=== PATIENT | female | born 1955 | race Two or more races ===

== ENCOUNTER 2022-01-24 00:02 | Inpatient (IN) | payer MEDICAID, OTHER ==
[2022-01-24] VITALS (65 sets, daily range): BP systolic 90–182; BP diastolic 46–118
[~2022-01-24] VITALS: Ht 154.9 cm; Wt 56.2 kg
--- NOTE | 2022-01-24 00:30 | NUR ---
IV CANNULA G18 INSERTED ON RIGHT AC. BLOOD DRAWN AND SENT TO LAB
--- NOTE | 2022-01-24 00:36 | NUR ---
ARLETH DECKER FROM [facility], C/O ABNORMAL LABS. PATIENT IS A/O X 1, RR LABORED, PT PLACED ON SMIPLE FACE MASK. PATIENT TAKEN TO ER BED 07, CONNECTED TO CARIDAC AND POX MONITORS.
--- NOTE | 2022-01-24 00:48 | NUR ---
COVID SWAB DONE
--- NOTE | 2022-01-24 00:48 | NUR ---
URINE SPECIMEN SENT TO LAB
--- NOTE | 2022-01-24 00:48 | NUR ---
PLACED PATIENT ON OXYGEN FACE MASK AT 6LPM SATURATING 92%, RA 82%
--- NOTE | 2022-01-24 00:51 | NUR ---
SPECIMEN FOR STOOL OCCULT BLOOD SENT TO LAB
[2022-01-24] MEDS ORDERED: IV NS 0.9% 1,000 ML BAG IV ONE (01:00)
[2022-01-24 01:14] LABS: BASOPHILS % (AUTO) 0.1 % (0.0-2.0); LYMPHOCYTES # (AUTO) 0.8 K/uL (0.8-4.8); LYMPHOCYTES % (AUTO) 2.7 % (20.0-44.0); MEAN CORPUSCULAR HGB CONC 32 g/dl (31.0-36.0); MEAN CORPUSCULAR VOLUME 96 fL (82-100); MONOCYTES # (AUTO) 0.9 K/uL (0.1-1.30); MONOCYTES % (AUTO) 2.9 % (2.0-12.0); NEUTROPHILS # (AUTO) 28.4 K/uL (1.8-8.9); NEUTROPHILS % (AUTO) 94.3 % (43.0-81.0); PLATELET COUNT (AUTO) 322 K/uL (150-450)
[2022-01-24 01:22] LABS: OCCULT BLOOD STOOL POSITIVE (NEGATIVE)
[2022-01-24 01:23] LABS: HEMATOCRIT 17 % (33-45); HEMOGLOBIN 5.5 g/dL (11.5-14.8); RED BLOOD CELL COUNT(AUTO) 1.77 MIL/uL (4.0-5.2); WHITE BLOOD COUNT (AUTO) 30.1 K/uL (4.3-11.0)
[2022-01-24 01:36] LABS: ALANINE AMINOTRANSFERASE 15 U/L (12-78); ALBUMIN 1.8 g/dL (3.4-5.0); ALKALINE PHOSPHATASE 81 U/L (46-116); ASPARTATE AMINOTRANSFERASE 15 U/L (15-37); BILIRUBIN,DIRECT 0.2 mg/dL (0.0-0.2); BILIRUBIN,TOTAL 0.5 mg/dL (0.2-1.0); CALCIUM, SERUM 8.3 mg/dL (8.5-10.1); CARBON DIOXIDE 18 mmol/L (21-32); CHLORIDE 104 mmol/L (98-107); CREATININE 2.9 mg/dL (0.6-1.3); GLUCOSE 90 mg/dL (74-106); POTASSIUM 4.9 mmol/L (3.5-5.1); SODIUM SERUM 134 mmol/L (136-145); UREA NITROGEN, BLOOD 72 mg/dL (7-18)
[2022-01-24] MEDS ORDERED: CT SWABBABLE VALVE TRANS SET 1 EA INFUS.SET MC ONE (01:36)
[2022-01-24] MEDS ORDERED: IOHEXOL-300 100 ML VIAL IV ONE (01:36)
[2022-01-24 01:55] LABS: COLOR,URINE YELLOW (YELLOW); PROTEIN,URINE 3+ mg/dl (NEGATIVE); UGLUCOSE NEGATIVE (NEGATIVE)
[2022-01-24 01:56] LABS: BILIRUBIN,URINE NEGATIVE (NEGATIVE); LEUKOCYTE ESTERASE ,URINE LARGE (NEGATIVE); NITRITE, URINE NEGATIVE (NEGATIVE); UROBILINOGEN,URINE 0.2 EU/dL (0.2)
[2022-01-24 01:57] LABS: BACTERIA,URINE Moderate /HPF (None Seen); RBC,URINE 0-2 /HPF (0-2); SQUAMOUS EPITHELIAL CELL,UR Rare /HPF (None Seen); WBC,URINE TOO NUMEROUS TO COUN /HPF (0-3)
[2022-01-24] MEDS ORDERED: IV NS 0.9% 1,000 ML IV ONE (02:00)
[2022-01-24] MEDS ORDERED: PIPERACILLIN /TAZOBACTAM 3.375 G in IV D5W 50 ML IV ONE (02:00)
--- NOTE | 2022-01-24 02:17 | NUR ---
PT RETURNED TO ER BED [address]
[2022-01-24] MEDS ORDERED: NOREPINEPHRINE 4 MG/4 ML AMPUL IV ONE (02:25)
[2022-01-24] MEDS ORDERED: PIPERACILLIN /TAZOBACTAM 3.375 G VIAL IV ONE (02:29)
[2022-01-24] MEDS ORDERED: PANTOPRAZOLE 80 MG in IV NS 0.9% 100 ML IV ONE (02:30)
[2022-01-24] MEDS ORDERED: PANTOPRAZOLE 80 MG in IV NS 0.9% 500 ML IV PRN (02:30)
[2022-01-24] MEDS: NOREPINEPHRINE 8 MG in IV NS 0.9% 242 ML IV PRN ×5 (02:52→08:59)
--- NOTE | 2022-01-24 02:52 | NUR ---
LEVOPHED STARTED AT .5MCG/KG/MIN FOR BP OF 74/39mmHg, HR 75. RR 20
--- NOTE | 2022-01-24 02:57 | NUR ---
INCREASED THE RATE OF LEVOPHED TO 0.6MCG/KG/MIN FOR BP 86/51mmHg, HR 83, RR 20
--- NOTE | 2022-01-24 03:02 | NUR ---
INCREASED THE RATE OF LEVOPHED TO 0.7MCG/KG/MIN FOR BP 80/44mmHg, HR 73, RR 20
--- NOTE | 2022-01-24 03:09 | NUR ---
INCREASED THE RATE OF LEVOPHED TO 0.8MCG/KG/MIN FOR BP 96/55mmHg, HR 82, RR 20
[2022-01-24] MEDS ORDERED: RISP0.5T5 PO (03:15)
[2022-01-24] MEDS ORDERED: AMLO-213 PO (03:15)
[2022-01-24] MEDS ORDERED: MEGE400O4 PO (03:15)
[2022-01-24] MEDS ORDERED: DOCU100C36 PO (03:15)
[2022-01-24] MEDS ORDERED: SENN-18 PO (03:15)
[2022-01-24] MEDS ORDERED: NITR100C6 PO (03:15)
[2022-01-24] MEDS ORDERED: ASCO500T10 PO (03:15)
[2022-01-24] MEDS ORDERED: LORA10TA7 PO (03:15)
[2022-01-24] MEDS ORDERED: LABE200T5 PO (03:15)
[2022-01-24] MEDS ORDERED: FLUO20CA42 PO (03:15)
[2022-01-24] MEDS ORDERED: LISI40TA13 PO (03:15)
[2022-01-24] MEDS ORDERED: ASPI-1169 PO (03:15)
[2022-01-24] MEDS ORDERED: ERGO500093 PO (03:15)
[2022-01-24] MEDS ORDERED: BISA10SU11 RC (03:15)
[2022-01-24] MEDS ORDERED: LEVE500T20 PO (03:15)
[2022-01-24] MEDS ORDERED: FAMO20TA8 PO (03:15)
[2022-01-24] MEDS ORDERED: SIMV10TA98 PO (03:16)
[2022-01-24] MEDS ORDERED: ACETAMINOPHEN 650 MG/SUPP.RECT RC PRN (03:30)
[2022-01-24] MEDS ORDERED: Z GUARD REMEDY 4 OZ OINT TP PRN (03:30)
[2022-01-24] MEDS ORDERED: ONDANSETRON HCL/PF 4 MG/2 ML VIAL IVP PRN (03:30)
--- NOTE | 2022-01-24 03:45 | NUR ---
CENTRAL LINE INSERTED ON RIGHT FEMORAL VEIN BY DR HOANG.
[2022-01-24 03:55] LABS: BAND % (MANUAL) 11 % (0.0-5.0); BASOPHILS % (MANUAL) 0 % (0.0-2.0); EOSINOPHILS % (MANUAL) 0 % (0-4); LYMPHOCYTES % (MANUAL) 6 % (16-48); MONOCYTES % (MANUAL) 8 % (0-11.0); NEUTROPHILS % (MANUAL) 75 (42-76)
[2022-01-24] MEDS ORDERED: LORAZEPAM INJ 2 MG/ML VIAL IV PRN (04:00)
--- NOTE | 2022-01-24 04:21 | NUR ---
LEFT VOICEMAIL TO DAUGHTER GORDY TO CALL ER OR ICU.
[2022-01-24] MEDS ORDERED: LEVETIRACETAM (500MG) 500 MG/5 ML VIAL IV ONE (04:27)
[2022-01-24] MEDS ORDERED: PANTOPRAZOLE 40 MG VIAL ONE (04:32)
--- NOTE | 2022-01-24 04:38 | NUR ---
PT WAS TRANSFERRED TO ICU UNDER ACLS
--- NOTE | 2022-01-24 04:40 | NUR ---
INCREASED THE RATE OF LEVOPHED TO 0.9MCG/KG/MIN FOR BP 57/40mmHg, HR 128, RR 20
--- NOTE | 2022-01-24 04:40 | NUR ---
Aniket simms in EDM - 01/24/22 at 0454 by MIN INCREASED THE RATE OF LEVOPHED TO 0.9MCG/KG/MIN FOR BP 857/40mmHg, HR 128, RR 20
--- NOTE | 2022-01-24 04:43 | NUR ---
SUBGRADE TESTER NOTES ADMITTED A 66 Y/O FEMALE PATIENT FROM ER VIA [facility], WITH DX OF SEVERE ANEMIA, SEPTIC SHOCK. WITH HX SCHIZOPHRENIA, ETOH ABUSE, ANEMIA. PATIENT A/O X 1 ON BASELINE. ON ROOM AIR SATING AT 100%. RESPIRATORY EVEN AND UNLABORED, NO SOB NOTED. WITH RIGHT FEMORAL CENTRAL LINE, RAC # 18 AND RIGHT HAND # 22 PERIPHERAL LINE, FLUSHED WITH NS. NO S/S OF INFILTRATION NOTED, RUNNING WITH IVF NS @ 100 ML/HR AND LEVO @ 0.9 MCG/KG/MIN. V.S TAKEN AND RECORDED. BODY ASSESSMENT DONE. ALL SAFETY PRECAUTION. BED IN LOWEST POSITION, LOCKED. CALL LIGHT WITH REACH. CONTINUE TO MONITOR.
[2022-01-24] MEDS: LEVETIRACETAM (500MG) 500 MG in IV NS 0.9% 100 ML IV SCH ×2 (04:44→15:42)
[2022-01-24] MEDS: IV NS 0.9% 1,000 ML IV PRN ×2 (04:45→15:40)
--- NOTE | 2022-01-24 04:47 | NUR ---
TRANSFERRED PT TO ICU VIA ACLS WITH ONGOING LEVOPHED DRIP.
[2022-01-24] MEDS ORDERED: VANCOMYCIN 1 GM VIAL ONE (04:48)
--- NOTE | 2022-01-24 04:50 | NUR ---
CONSENT FOR BLOOD TRANSFUSION WS OBTAINED OVER THE PHONE FROM THE PATZAAR'S DAUGHTER GORDY AT [phone]. WITHNESSED BY TATY CHAVIRA.
[2022-01-24 04:59] LABS: BASOPHILS % (AUTO) 0.2 % (0.0-2.0); EOSINOPHILS % (AUTO) 0.1 % (0.0-6.0); LYMPHOCYTES # (AUTO) 1.1 K/uL (0.8-4.8); LYMPHOCYTES % (AUTO) 5.7 % (20.0-44.0); MEAN CORPUSCULAR HGB CONC 32 g/dl (31.0-36.0); MEAN CORPUSCULAR VOLUME 97 fL (82-100); MONOCYTES # (AUTO) 0.1 K/uL (0.1-1.30); MONOCYTES % (AUTO) 0.7 % (2.0-12.0); NEUTROPHILS # (AUTO) 17.7 K/uL (1.8-8.9); NEUTROPHILS % (AUTO) 93.3 % (43.0-81.0); PLATELET COUNT (AUTO) 310 K/uL (150-450)
[2022-01-24] MEDS ORDERED: VANCOMYCIN 1 GM in IV D5W 250ml IV ONE (05:00)
[2022-01-24 05:06] LABS: RED BLOOD CELL COUNT(AUTO) 1.58 MIL/uL (4.0-5.2)
[2022-01-24 05:08] LABS: HEMATOCRIT 15 % (33-45); HEMOGLOBIN 4.9 g/dL (11.5-14.8)
[2022-01-24 05:10] LABS: CALCIUM, SERUM 7.6 mg/dL (8.5-10.1); CREATININE 3.1 mg/dL (0.6-1.3); POTASSIUM 5.8 mmol/L (3.5-5.1)
[2022-01-24 05:18] LABS: ALBUMIN 1.6 g/dL (3.4-5.0); BILIRUBIN,TOTAL 0.5 mg/dL (0.2-1.0); MAGNESIUM 1.4 mg/dL (1.8-2.4); TOTAL PROTEIN, SERUM 5.7 g/dL (6.4-8.2)
[2022-01-24 05:27] LABS: THYROID STIMULATING HORMONE 1.578 uIU/mL (0.358-3.74)
--- NOTE | 2022-01-24 05:30 | NUR ---
RN NOTES RECEIVED LATEST HGB/HCT 4.9/15M NOTIFIED RAVI FORD TRANSFUSE TOTAL OF 2 UNITS PRBC NOTED AND CARRIED OUT.
[2022-01-24] MEDS ORDERED: NOREPINEPHRINE 8MG/250ML RTU 250 ML IV ONE (05:33)
--- NOTE | 2022-01-24 05:46 | NUR ---
RN NOTES BLOOD TRANSFUSION STARTED 1 UNIT PRBC, INITIAL V/S TAKEN AND RECORDED. CONTINUE TO MONITOR.
[2022-01-24 06:01] LABS: BAND % (MANUAL) 12 % (0.0-5.0); BASOPHILS % (MANUAL) 0 % (0.0-2.0); EOSINOPHILS % (MANUAL) 0 % (0-4); LYMPHOCYTES % (MANUAL) 5 % (16-48); MONOCYTES % (MANUAL) 8 % (0-11.0); NEUTROPHILS % (MANUAL) 75 (42-76)
--- NOTE | 2022-01-24 06:06 | NUR ---
RN NOTES WITH ON GOING BLOOD TRANSFUSION, NO ADVERSE REACTION NOTED, V/S TAKEN AND RECORDED.
[2022-01-24 06:11] LABS: ABG BASE EXCESS -13.5 mmol/L; ABG PCO2 18.3 mmHg (35.0-45.0); ABG PO2 91.7 mmHg (75.0-100.0); AaDO2 36.1 mmHg; COHb 2.1 % (0.5-1.5); MetHb 0.3 % (0.0-1.5); O2Hb 94.7 % (94.0-97.0); SITE, ABG Left Radial; VENT MODE, BG ROOM AIR
--- NOTE | 2022-01-24 06:21 | NUR ---
RN NOTES WITH ON GOING BLOOD TRANSFUSION, BP- 110/56, P- 81. RR- 22NO ADVERSE REACTION NOTED. CONTINUE TO MONITOR.
--- NOTE | 2022-01-24 07:20 | NUR ---
rn notes received patient confused, awake, unable to verbalize self, and needs, patient getting blood transfusion at this time on TLC on femoral area intact, also infusing Levophed 0.8mcg/kg/min, and ns@100ml/hr intact. no acute respiratory distress, patient room air-100%, p-95 no acute respiratory distress. will follow up
--- NOTE | 2022-01-24 08:40 | NUR ---
RN NOTES FINISHED BLOOD TRANSFUSION AT THIS TIME BP 118/60, R-19,P-96, T-98.5F. PATIENT AWAKE AND CONFUSED, NO ACUTE RESPIRATORY DISTRESS, O2-100% ON BEDSIDE MONITOR.
[2022-01-24] MEDS ORDERED: RISP0.2515 PO (08:42)
[2022-01-24] MEDS ORDERED: MULT-447 PO (08:42)
[2022-01-24] MEDS ORDERED: FERR325T23 PO (08:42)
[2022-01-24] MEDS ORDERED: ACET-868 PO (08:42)
--- NOTE | 2022-01-24 08:48 | NUR ---
rn notes started second units of blood transfusion at this time 60ml/hr on right tlcon femoral area intact, patient calm, and cooperative t-98.5F, p-95,r-25, bp 117/54, o2-100%. patient room air, no acute respiratory distress, call light within to reach. co sign with Hiwot POSEY. will follow up.
--- NOTE | 2022-01-24 09:10 | NUR ---
RN NOTES PATIENT TOLERATING BLOOD TRANSFUSION WELL, NO ACUTE RESPIRATORY DISTRESS, INCREASED 120ML/HR OM TLC FEMORAL AREA CENTRAL LINE, BP 91/54, P-96,R-22, O2-100% RA. WILL FOLLOW UP.
[2022-01-24] MEDS: PIPERACILLIN /TAZOBACTAM 2.25 G in IV D5W 50 ML IV SCH ×2 (09:28→17:21)
[2022-01-24] MEDS: PANTOPRAZOLE 40 MG VIAL IV SCH ×2 (09:28→22:07)
[2022-01-24] MEDS ORDERED: SODIUM POLYSTYRENE SULFONATE 15 G/60 ML BOTTLE PO ONE (10:00)
[2022-01-24] MEDS ORDERED: Magnesium 1GM/D5W 100ML PREMIX PIGGYBACK IV ONE (10:00)
[2022-01-24] MEDS ORDERED: Magnesium 1GM/D5W 100ML PREMIX 100 ML IV SCH (11:00)
--- NOTE | 2022-01-24 11:47 | NUR ---
RN NOTES FINISHED BLOOD TRANSFUSION AT THIS TIME, PATIENT AWAKE, T-99.2F, R-20,P-95, BP- 128/69,FIO2-100%. NO ACUTE RESPIRATORY DISTRESS. DAUGHTER NEXT TO THE BED.
--- NOTE | 2022-01-24 12:41 | NUR ---
rn notes inserted ngt at this time, get order of start chest x-ray for placement.
[2022-01-24] MEDS: IV NS 0.9% 250 ML IV PRN (12:49)
--- NOTE | 2022-01-24 15:34 | NUR ---
RN NOTES COLLECTED URINE CULTURE SPECIMEN AT THIS TIME, APPLIED PUREWICK URINE COLLECTION TO THE CONTINUED SUCTIONING . TITRATED LEVOPHED PER PROTOCOL.
--- NOTE | 2022-01-24 15:51 | NUR ---
RN NOTES HELD LEVOPHED AT THIS TIME BP 125/65, P-96.
--- NOTE | 2022-01-24 18:18 | NUR ---
RN NOTES PM CARE DONE, DUE MEDICATION ADMINISTERED, BP 122/60, P-99, O2-100% ROOM AIR, NO ACUTE RESPIRATORY DISTRESS. INFUSING NS@100ML/HR ON RIGHT FEMORAL AREA INTACT, PATIENT KEEP MOVING SELF IN THE BED. CALL LIGHT WITHIN TO REACH. ENDORSED ONCOMING NURSE CARLOS.
[2022-01-25] VITALS (36 sets, daily range): BP systolic 116–184; BP diastolic 46–125
[2022-01-25] MEDS: IV NS 0.9% 1,000 ML IV PRN (02:17)
[2022-01-25] MEDS: PIPERACILLIN /TAZOBACTAM 2.25 G in IV D5W 50 ML IV SCH ×3 (02:17→17:13)
[2022-01-25] MEDS: LEVETIRACETAM (500MG) 500 MG in IV NS 0.9% 100 ML IV SCH (04:04)
[2022-01-25 04:14] LABS: BASOPHILS % (AUTO) 0.1 % (0.0-2.0); EOSINOPHILS % (AUTO) 0.5 % (0.0-6.0); HEMATOCRIT 23 % (33-45); HEMOGLOBIN 7.8 g/dL (11.5-14.8); LYMPHOCYTES # (AUTO) 1.1 K/uL (0.8-4.8); LYMPHOCYTES % (AUTO) 4.8 % (20.0-44.0); MEAN CORPUSCULAR HGB CONC 34 g/dl (31.0-36.0); MEAN CORPUSCULAR VOLUME 92 fL (82-100); MONOCYTES # (AUTO) 0.6 K/uL (0.1-1.30); MONOCYTES % (AUTO) 2.6 % (2.0-12.0); NEUTROPHILS # (AUTO) 20.8 K/uL (1.8-8.9); PLATELET COUNT (AUTO) 157 K/uL (150-450); RED BLOOD CELL COUNT(AUTO) 2.52 MIL/uL (4.0-5.2); WHITE BLOOD COUNT (AUTO) 22.6 K/uL (4.3-11.0)
[2022-01-25 04:37] LABS: CALCIUM, SERUM 7.5 mg/dL (8.5-10.1); CREATININE 2.4 mg/dL (0.6-1.3); MAGNESIUM 1.8 mg/dL (1.8-2.4); POTASSIUM 2.9 mmol/L (3.5-5.1)
[2022-01-25 05:32] LABS: BAND % (MANUAL) 5 % (0.0-5.0); BASOPHILS % (MANUAL) 0 % (0.0-2.0); EOSINOPHILS % (MANUAL) 0 % (0-4); LYMPHOCYTES % (MANUAL) 9 % (16-48); MONOCYTES % (MANUAL) 5 % (0-11.0); NEUTROPHILS % (MANUAL) 81 (42-76)
--- NOTE | 2022-01-25 07:36 | NUR ---
RN CLOSING NOTE PATIENT IS A/OX1. ROOM AIR. SINUS RHYTHM/ SINUS TACH ON THE MONITOR. NGT CLAMPED. RIGHT MITTEN ON, NO REDNESS/ NO INJURY. IVF RUNNING. ABX GIVEN ORDERED. PENING PULM AND GI CONS.
--- NOTE | 2022-01-25 07:37 | NUR ---
GOT PATIENT REPORT FROM KEISHA POSYE. PATIENT REMAINS IN ROOM NPO WITH NASOGASTRIC TUBE, NO FEEDING RUNNING. NASOGASTRIC TUBE PLACEMENT CONFIRMED BY AUSCULTATION. IV ACCESS' PATENT AND FLUSHING WITH NO RESISTANCE. PATIENT CLEANED, ONE VOID AND ONE BOWEL MOVEMENT NOTED. NOW CLEAN AND DRY. TOLERATING ROOM AIR EVIDENCED BY OXYGEN SATURATION IN 98 PERCENT. READING NORMAL SINUS RYHTHM AT THIS TIME. SAFETY MEASURES IN PLACE, WILL CONTINUE PLAN OF CARE AND ANTICIPATE NEEDS. Addendum: 01/25/22 at 1038 by ROLAND TRAN RN PATIENT NPO PER DR WONG. AWAITING GI FOLLOW UP FOR POSITIVE OCCULT BLOOD.
[2022-01-25] MEDS: POTASSIUM CL. PREMIX PERIPHER. 50 ML IV SCH ×5 (07:41→12:51)
[2022-01-25] MEDS: IV NS 0.9% 250 ML IV PRN (08:30)
[2022-01-25] MEDS ORDERED: JEVITY 1.2 CAL 1,000 ML BOTTLE GT PRN (08:30)
[2022-01-25] MEDS: PANTOPRAZOLE 40 MG VIAL IV SCH ×2 (08:41→21:36)
--- NOTE | 2022-01-25 10:00 | NUR ---
RN NOTES GET Dr WONG'S ORDERS, KEEP NPO TODAY BECAUSE OF PATIENT POSITIVE OCCULT BLOOD. ORDER TAKEN AND CARRIED OUT..
--- NOTE | 2022-01-25 10:38 | NUR ---
TEXTED DR WONG FOR BLOOD PRESSURE 170/[address] RATE 121. DR GAVE ORDER TO DECREASE NORMAL SALINE RATE FROM 100 MLS/HR TO 75 MLS/HR AND AN ORDER FOR HYDRALAZINE TO MAINTAIN SYSTOLIC BLOOD PRESSURE LESS THAN 160. WILL CARRY OUT ORDER.
[2022-01-25] MEDS ORDERED: IV NS 0.9% 1,000 ML IV PRN (10:40)
[2022-01-25] MEDS: hydrALAZINE HCL IV 20 MG VIAL IV PRN ×2 (11:01→16:51)
--- NOTE | 2022-01-25 11:07 | NUR ---
PRN HYDRALAZINE GIVEN FOR BLOOD PRESSURE 166/85 WITH HEART RATE OF 125 BEATS PER MINUTE
[2022-01-25] MEDS: VANCOMYCIN HCL 0.75 GM in IV D5W 250 ML IV SCH (16:01)
--- NOTE | 2022-01-25 16:51 | NUR ---
PRN HYDRALAZINE GIVEN FOR BLOOD PRESSURE 162/85 WITH HEART RATE OF 124 BEATS PER MINUTE
--- NOTE | 2022-01-25 18:00 | NUR ---
rn notes patient HR -145 increased sinus tachy, notified hospitalist Dr Arizmendi, and get to order and get Cardizem 10ml iv pus q 6 hr, order taken and carried out.
[2022-01-25] MEDS: DILTIAZEM HCL 50 MG IV IV PRN (18:34)
[2022-01-25] MEDS: IV 1/2NS 1000 ML 1,000 ML IV PRN (19:08)
--- NOTE | 2022-01-25 19:14 | NUR ---
PATIENT REMAINS IN ROOM NPO WITH NASOGASTRIC TUBE, NO FEEDING RUNNING. NASOGASTRIC TUBE PLACEMENT CONFIRMED BY AUSCULTATION. IV ACCESS' PATENT AND FLUSHING WITH NO RESISTANCE. PATIENT KEPT CLEAN AND DRY THROUGHOUT SHIFT. TOLERATING ROOM AIR EVIDENCED BY OXYGEN SATURATION IN 98 PERCENT. READING SINUS TACHYCARDIC AT THIS TIME. PRN CARDEZIM GIVEN AT 1834. SAFETY MEASURES IN PLACE. HANDOFF REPORT GIVEN TO SWATI POSEY FOR CONTINUATION OF CARE.
--- NOTE | 2022-01-25 21:06 | NUR ---
FOOD PREPARATION KITCHEN AIDE.INITIAL ASSESSMENT. RECEIVED THE PT REST IN BED. OPEN EYES. DOES NOT FOLLOW COMMANDS. HOB ELEVATED. ROOM AIR. SAT 98%RT NARE NGT INTACT. SUGAR HOUSE SUPERVISOR SHOWING NSR. IV RT FEMORAL TLC IVF 1/2NS 75 ML/H. WILL CONTINUE TO MONITOR VITALS.
[2022-01-25] MEDS: LEVETIRACETAM SOL (5 ML) 100 MG/ML UDC GT SCH (21:36)
[2022-01-26] VITALS (27 sets, daily range): BP systolic 117–188; BP diastolic 61–95
[2022-01-26] MEDS: PIPERACILLIN /TAZOBACTAM 2.25 G in IV D5W 50 ML IV SCH ×5 (01:22→23:12)
--- NOTE | 2022-01-26 02:23 | NUR ---
TELEPHONE ORDER CLERK. AM CARE GIVEN. REMAINING SAME IVF RUNNING, HOB ELEVATED. NGT INTACT, ROOM AIR TOLERATED WELL. SAT 98%, NO ACUTE DISTRESS NOTED. PUBLIC WORKS SUPERVISOR SHOWING NSR. TURN AND REPOSITION Q2H. WILL CONTINUE TO MONITOR VITALS.
[2022-01-26 03:57] LABS: BASOPHILS % (AUTO) 0.1 % (0.0-2.0); EOSINOPHILS % (AUTO) 0.1 % (0.0-6.0); HEMATOCRIT 24 % (33-45); HEMOGLOBIN 8.3 g/dL (11.5-14.8); LYMPHOCYTES # (AUTO) 1.6 K/uL (0.8-4.8); LYMPHOCYTES % (AUTO) 8.3 % (20.0-44.0); MEAN CORPUSCULAR HGB CONC 34 g/dl (31.0-36.0); MEAN CORPUSCULAR VOLUME 92 fL (82-100); MONOCYTES # (AUTO) 0.7 K/uL (0.1-1.30); MONOCYTES % (AUTO) 3.9 % (2.0-12.0); NEUTROPHILS # (AUTO) 16.5 K/uL (1.8-8.9); NEUTROPHILS % (AUTO) 87.6 % (43.0-81.0); PLATELET COUNT (AUTO) 149 K/uL (150-450); RED BLOOD CELL COUNT(AUTO) 2.65 MIL/uL (4.0-5.2); WHITE BLOOD COUNT (AUTO) 18.8 K/uL (4.3-11.0)
[2022-01-26 04:11] LABS: CALCIUM, SERUM 7.8 mg/dL (8.5-10.1); CREATININE 1.9 mg/dL (0.6-1.3); MAGNESIUM 1.4 mg/dL (1.8-2.4); PHOSPHORUS 3.4 mg/dL (2.5-4.9); POTASSIUM 3.1 mmol/L (3.5-5.1)
[2022-01-26] MEDS ORDERED: VANCOMYCIN HCL 0.75 GM in IV D5W 250 ML IV SCH (05:00)
--- NOTE | 2022-01-26 07:00 | NUR ---
REPORT RECEIVED FROM NIGHTSHIFT RN. AM CARE GIVEN. TURNED AND REPOSITIONED. IVF RUNNING, HOB ELEVATED. NGT INTACT, PLACEMENT CONFIRMED BY AUSCULTATION. PATIENT NPO AWAITING GI FOLLOW UP. ROOM AIR TOLERATED WELL EVIDENCED BY OXYGEN SATURATION AT 98%, NO ACUTE DISTRESS NOTED. OPERATIONS AGENT SHOWING NSR. WILL CONTINUE PLAN OF CARE AND ANTICIPATE NEEDS.
[2022-01-26] MEDS: IV 1/2NS 1000 ML 1,000 ML IV PRN (07:25)
[2022-01-26] MEDS: DILTIAZEM HCL 50 MG IV IV PRN ×2 (08:09→14:00)
[2022-01-26] MEDS: POTASSIUM CL. PREMIX PERIPHER. 50 ML IV SCH ×4 (08:13→11:45)
[2022-01-26] MEDS: Magnesium 1GM/D5W 100ML PREMIX 100 ML IV SCH ×3 (08:13→10:03)
[2022-01-26] MEDS: LEVETIRACETAM SOL (5 ML) 100 MG/ML UDC GT SCH ×3 (08:15→21:15)
[2022-01-26] MEDS: PANTOPRAZOLE 40 MG VIAL IV SCH ×2 (08:31→21:15)
[2022-01-26] MEDS ORDERED: ANESTHESIA TRAY IN PYXIS 1 EA TRAY MC ONE (08:45)
[2022-01-26] MEDS ORDERED: LABETALOL HCL IV 100MG VIAL ONE (09:07)
[2022-01-26] MEDS ORDERED: Magnesium 1GM/D5W 100ML PREMIX 100 ML IV SCH (10:00)
--- NOTE | 2022-01-26 10:11 | NUR ---
RECEIVED PATIENT FROM OR TEAM. IN BED TOLERATING ROOM AIR. METAL CANS SUPERVISOR SHOWING NSR. NGT REMOVED DURING PROCEDURE, WILL INSERT NEW NGT. OBTAINED ORDER TO RESTART TUBE FEEDING, WILL CARRY ORDER OUT. PATIENT CLEANED, REPOSITIONED. WILL CONTINUE PLAN OF CARE.
--- NOTE | 2022-01-26 10:35 | NUR ---
NGT INSERTED. PLACEMENT CONFIRMED BY AUSCULTATION. SECURED WITH STATLOCK. WILL RESUME TUBE FEEDING.
[2022-01-26] MEDS: hydrALAZINE HCL IV 20 MG VIAL IV PRN (13:14)
[2022-01-26] MEDS: IV NS 0.9% 250 ML IV PRN (16:22)
[2022-01-26] MEDS: ACETAMINOPHEN 650 MG/20.3 ML UDC GT PRN (16:22)
--- NOTE | 2022-01-26 16:22 | NUR ---
PRN TYLENOL GIVEN FOR TEMP 99.9 DEGREES FAHRENHEIT. WILL RECHECK TEMP IN ONE HOUR
--- NOTE | 2022-01-26 17:22 | NUR ---
ON RECHECK TEMPERATURE IS 98.7 DEGREES FAHRENHEIT
--- NOTE | 2022-01-26 19:52 | NUR ---
director of curriculum. initial assessment. received the pt rest in bed. awake, open eyes. does not follow commands. room air. sat 98%. no acute distress noted. conveyor monitor showing nsr. iv rt femoral tlc. ivf 1/2ns 75 ml/h. ngt feeding tolerated well. hob elevated. will continue to monitor vitals.
[2022-01-27] VITALS (26 sets, daily range): BP systolic 113–176; BP diastolic 58–100
[2022-01-27] MEDS: IV 1/2NS 1000 ML 1,000 ML IV PRN ×2 (01:30→16:39)
[2022-01-27 03:58] LABS: BASOPHILS % (AUTO) 0.3 % (0.0-2.0); EOSINOPHILS % (AUTO) 1.6 % (0.0-6.0); HEMATOCRIT 25 % (33-45); HEMOGLOBIN 8.5 g/dL (11.5-14.8); LYMPHOCYTES # (AUTO) 1.6 K/uL (0.8-4.8); LYMPHOCYTES % (AUTO) 10.3 % (20.0-44.0); MEAN CORPUSCULAR HGB CONC 34 g/dl (31.0-36.0); MEAN CORPUSCULAR VOLUME 92 fL (82-100); MONOCYTES # (AUTO) 0.9 K/uL (0.1-1.30); MONOCYTES % (AUTO) 6.2 % (2.0-12.0); NEUTROPHILS # (AUTO) 12.4 K/uL (1.8-8.9); NEUTROPHILS % (AUTO) 81.6 % (43.0-81.0); PLATELET COUNT (AUTO) 144 K/uL (150-450); RED BLOOD CELL COUNT(AUTO) 2.74 MIL/uL (4.0-5.2); WHITE BLOOD COUNT (AUTO) 15.2 K/uL (4.3-11.0)
[2022-01-27 04:06] LABS: CALCIUM, SERUM 7.6 mg/dL (8.5-10.1); CREATININE 1.6 mg/dL (0.6-1.3); POTASSIUM 3.4 mmol/L (3.5-5.1)
[2022-01-27] MEDS: VANCOMYCIN HCL 0.75 GM in IV D5W 250 ML IV SCH (05:32)
[2022-01-27] MEDS: PIPERACILLIN /TAZOBACTAM 2.25 G in IV D5W 50 ML IV SCH ×2 (05:32→11:33)
--- NOTE | 2022-01-27 06:56 | NUR ---
manager nicu. am care given. remaining same ivf running. room air tolerated well. hobelevated/ ngt feeding tolerated well. turn and reposition q2h. will continue to monitor vitals.
--- NOTE | 2022-01-27 07:45 | NUR ---
ICU/RN PT IS RESTING.ON ROOM AIR,SAT O2-99%.V/S STABLE,AFEBRILE.NO PAIN REPORTED AT THIS TIME.NG TUBE IN PLACE INFUSING WITH JEVITY AT 60 ML/HR.RIGHT FEMORAL TLC ,WITH IV FLUIDS.PT IS INCONTINENT IN DIAPER.REDNESS ON NIMISHA AREA NOTED.LABS REVIEW. NOTIFIED.NEW ORDERS RECEIVED .REPOSITION FOR COMFORT.
[2022-01-27] MEDS: PANTOPRAZOLE 40 MG VIAL IV SCH ×2 (08:06→21:29)
[2022-01-27] MEDS: LEVETIRACETAM SOL (5 ML) 100 MG/ML UDC GT SCH ×2 (08:06→21:29)
--- NOTE | 2022-01-27 09:00 | NUR ---
ICU/RN DUE MEDS ARE GIVEN ORDERED.NIMISHA CARE PROVIDED.PT IS SLIDING IN THE BED .HIGH RISK FOR ASPIRATION. TUBE FEEDING PLACE ON HOLD. AWARE.
[2022-01-27] MEDS ORDERED: POTASSIUM CHLORIDE 20 MEQ POWDER PACKET GT ONE (09:30)
[2022-01-27] MEDS: hydrALAZINE HCL IV 20 MG VIAL IV PRN (10:11)
--- NOTE | 2022-01-27 10:14 | NUR ---
RN NOTE PRN HYDRALAZINE GIVEN FOR BLOOD PRESSURE 167/100 WITH HR OF 1113
[2022-01-27] MEDS ORDERED: CEFTRIAXONE 1 G in IV NS 0.9% 50 ML IV SCH (16:00)
[2022-01-27] MEDS: IV NS 0.9% 250 ML IV PRN (16:40)
[2022-01-27] MEDS: JEVITY 1.2 CAL 1,000 ML BOTTLE GT PRN (18:10)
--- NOTE | 2022-01-27 20:00 | NUR ---
Received patient awake oriented x1 restless moving a lot,sliding down in bed.Turned and repositioned frequently.Dx: Anemia,Sepsis,UTI.Feeding on hold for safety to pevent aspiration. Afebrile,normotensive,SR.On RA saturation 98%.-99%.No respiratory distress noted.IVF infusing via R femoral TLC.Incontinent bowel and bladder.Kept clean and dry.Continue monitoring.
--- NOTE | 2022-01-27 22:24 | NUR ---
Patient transferred to tele floor Rm 323 bed 2 via bed in stable condition accompanied by ED plant superintendent and Erasmo with her belongings & meds..Report given to Sudha Castaneda RN.
--- NOTE | 2022-01-27 22:25 | NUR ---
RN OPENING NOTES: RECEIVED REPORT FROM JONN/RN/ICU, TRANSFER IN PATIENT TO [address] [place] [address], ON MONITOR SR-80'S, ON ROOM AIR SPO2-99%PERVIOUS H/H 5.5, SHE RECEIVED 2 UNITS PRB ON 01/24/22, SHE WAS ON LEVOFED INFUSION DUE TO LOW BP,DISCONTINUE NOW, SHE WAS ADMITTED DX:SEPSIS/UTI, SHE IS ALSO KNOWN CASE OF CVA, EPILEPSY, DEMENTIA, HTN, ANXIETY, SCHIZO NKDA, COVID(-), A/OX1, ABLE TO COMMUNICATE LIKE REPOSITIONING, LEFT ARM-CONTRACTED, RH-MOVING A [employer]), ON NGT TUBE WITH FEEDING OF JEVITY 1.2 AT 45 ML/HR, TEMPORARILY STOP DUE TO TOO MUCH MOVEMENT AND SHE ALWAYS GO DOWN FROM SEMI FOWLERS POSITION TO SUPINE POSITION, HIGH RISK FOR ASPIRATION, DUE TO FLUSHING AFTER 8 HOURS OF 250 ML, HAD BM 3X IN ICU FROM MORNING SHIFT GREENISH IN COLOR,SOFT CONSISTENCY, INCONTINENT, USING BRIEF, NO SKIN BREAKDOWN, EXCEPT REDNESS ON BILATERAL HILLS DUE TO MOVING UP AND DOWN OF THE PATIENT, SHE HAS LEFT FEMORAL TRIPLE LUMEN IVF OF 1/2 NS AT 75 ML.HR, RFA-AC G#22, PATENT. HER LATEST K-3.4 GIVEN 40 mEQ kcl VIA NGT THIS MORNING, LATETS V/S T-98.5 WY-83 RR-15 BP-153/84. WHILE RECIEVEING ENDORSEMENT, PATIENT ARRIVED IN THE UNIT WITH CN AT 2225
--- NOTE | 2022-01-27 23:20 | NUR ---
RN NOTES: ORIENTED TO UNIT AND STAFF, TELE MONITOR CONTINUE, PLACED IN SEMI FOWLERS POSITION, NOTICED SHE KEEP ON TRYING TO MOVE HER HEAD AND BLE AND SHE IS SLIDING DOWN, RN TRIED TO EXPLAIN TO HER TO TRY NOT TO MOVE A LOT, WE ARE STARTING HER FEEDING VIA NGT TUBE JEVITY 1.2 AT SLOW DRIP, WILL MONITOR, ASPIRATION PRECAUTION OBSERVED, REPOSITIONED, KEPT CALL LIGHT WITHIN EASY REACH, ON CLOSE VISUAL CHECK.SHE LOOKS LITTLE ANXIOUS IN HER NEW ROOM, REDIRECT AND GIVEN ORIENTATION.
[2022-01-28] VITALS: BP 171/92
[2022-01-28] MEDS: hydrALAZINE HCL IV 20 MG VIAL IV PRN (00:22)
--- NOTE | 2022-01-28 00:23 | NUR ---
RN NOTES: AT 0000 BP-180/95, THEN GIVEN SOME TIME TO REST. AT 0015 BP-171/92 CN MADE AWARE, PRN APRESOLINE GIVEN AT 0022
--- NOTE | 2022-01-28 00:58 | NUR ---
RN NOTES: TURNED AND REPOSITION SHE IS SLIDING DOWN, RN TRYING TO EXPLAIN TO HER NOT TO SLIDE DOWN TO PREVENT ASPIRATION HER IVF AND NGT FEEDING IS ON GOING.NEEDS ANTICIPATED.
[2022-01-28 04:00] VITALS: BP 142/75
--- NOTE | 2022-01-28 05:48 | NUR ---
RN NOTES: MORNING CARE DONE, CLEAN AND CHANGE, LARGE AMOUNT OF URINE WITH STOOL STAINED, GREENISH IN COLOR,AFTER CLEANING SHE FALL ASLEEP.
--- NOTE | 2022-01-28 06:49 | NUR ---
RN NOTES: SHE SLEEP IN THE MORNING, LAST NIGHT AWAKE MOST OF THE TIME AND TRYING TO SLIDE DOWN FROM SEMI FOLWERS TO SUPINE POSITION, NGT FEEDING OF JEVITY 1.2 SLOW DRIP STARTED UNTIL 45CC/HR REACH, IVF OF 1/2NS AT 75ML/HR ONGOING, REPOSITIONED, BLE OFF LOADING OBSERVED, FOR BLOOD TEST, ENDORSED FOR CONTINUITY OF CARE.
[2022-01-28 07:14] LABS: BASOPHILS % (AUTO) 0.4 % (0.0-2.0); EOSINOPHILS % (AUTO) 2.4 % (0.0-6.0); HEMATOCRIT 24 % (33-45); HEMOGLOBIN 8.2 g/dL (11.5-14.8); LYMPHOCYTES # (AUTO) 1.4 K/uL (0.8-4.8); MEAN CORPUSCULAR HGB CONC 34 g/dl (31.0-36.0); MEAN CORPUSCULAR VOLUME 91 fL (82-100); MONOCYTES # (AUTO) 0.9 K/uL (0.1-1.30); NEUTROPHILS % (AUTO) 73.2 % (43.0-81.0); PLATELET COUNT (AUTO) 131 K/uL (150-450); RED BLOOD CELL COUNT(AUTO) 2.63 MIL/uL (4.0-5.2); WHITE BLOOD COUNT (AUTO) 9.5 K/uL (4.3-11.0)
[2022-01-28 07:34] LABS: CALCIUM, SERUM 7.4 mg/dL (8.5-10.1); CREATININE 1.3 mg/dL (0.6-1.3); POTASSIUM 3.5 mmol/L (3.5-5.1)
--- NOTE | 2022-01-28 07:35 | NUR ---
SUPERVISOR PIPELINE OPENING NOTES: RECEIVED ON BED AWAKE , ABLE TO COMMUNICATE LIKE REPOSITIONING, LEFT ARM-CONTRACTED WITH RIGHT ARM MITTENS ON DUE TO PULLING OUT TUBE , ON NGT TUBE WITH FEEDING OF JEVITY 1.2 AT 45 ML/HR, ON SEMI FOWLERS POSITION BUT PATIENT KEPT ON MOVING ALL THE TIME , HIGH RISK FOR ASPIRATION , NO SKIN BREAKDOWN, EXCEPT REDNESS ON BILATERAL HEELS , , SHE HAS LEFT FEMORAL TRIPLE LUMEN IVF OF 1/2 NS AT 75 ML.HR, RFA-AC G#22 , WILL CONTINUE TO MONITOR .
[2022-01-28 08:00] VITALS: BP 153/108
[2022-01-28] MEDS ORDERED: VANCOMYCIN HCL 0.75 GM in IV D5W 250 ML IV SCH (08:00)
[2022-01-28] MEDS: LEVETIRACETAM SOL (5 ML) 100 MG/ML UDC GT SCH ×2 (09:16→21:20)
[2022-01-28] MEDS: VANCOMYCIN 1 GM in IV D5W 250ml IV SCH (09:29)
[2022-01-28] MEDS: PANTOPRAZOLE 40 MG VIAL IV SCH (09:56)
[2022-01-28 16:00] VITALS: BP_SYST 166; BP_SYST 168; BP_DIAS 94
[2022-01-28] MEDS: CEFTRIAXONE 1 G in IV D5W 50 ML IV SCH (16:24)
[2022-01-28] MEDS: IV 1/2NS 1000 ML 1,000 ML IV PRN (17:34)
--- NOTE | 2022-01-28 18:34 | NUR ---
KINESEOLOGIST CLOSING NOTES: PATIENT ON BED AWAKE , A/O X 1-2 , ABLE TO COMMUNICATE NEEDS LIKE REPOSITIONING, LEFT ARM-CONTRACTED WITH RIGHT ARM MITTENS ON DUE TO PULLING OUT TUBE , ON NGT TUBE WITH FEEDING OF JEVITY 1.2 AT 45 ML/HR, ON SEMI FOWLERS POSITION BUT PATIENT KEPT ON MOVING ALL THE TIME , ALL DUE MEDS GIVEN ORDERED , HIGH RISK FOR ASPIRATION , NO SKIN BREAKDOWN, EXCEPT REDNESS ON BILATERAL HEELS , , SHE HAS LEFT FEMORAL TRIPLE LUMEN IVF OF 1/2 NS AT 75 ML.HR, RFA-AC G#22 , SAFETY PRECAUTIONS PROVIDED , SR UP X 2 AND ENDORSED TO NEXT SHIFT .
--- NOTE | 2022-01-28 19:30 | NUR ---
SEWING MACHINE TESTER OPENING NOTES: RECEIVED PATIENT AWAKE IN BED, BED IN LOW POSITION CALL LIGHTS WITHIN REACH, NO COMPLAIN OF PAIN AND DISCOMFORT AT THIS TIME, ON ROOM AIR SATURATING WELL, ON GTUBE FEEDING OF JEVITY 1.2 @45ML/HR INFUSING WELL, PATIENT TO REMAIN UPRIGHT AT ALL TIME, PATIENT RIGHT FEMORAL CENTRAL LINE WITH ONGOING IV FLUID OF 1/2 NSS@75ML/HR INFUSING WELL, PATIENT KEPT CLEAN AND DRY ALL NEEDS MET WILL CONTINUE TO MONITOR.
[2022-01-28 20:00] VITALS: BP 150/86
[2022-01-28] MEDS: PANTOPRAZOLE 40 MG/PACK PACK GT SCH (21:20)
[2022-01-28] MEDS: JEVITY 1.2 CAL 1,000 ML BOTTLE GT PRN (21:39)
[2022-01-29] VITALS: BP_SYST 171; BP_SYST 174; BP_DIAS 86; BP_DIAS 89
[2022-01-29] MEDS: hydrALAZINE HCL IV 20 MG VIAL IV PRN (00:46)
[2022-01-29 04:00] VITALS: BP 150/87
[2022-01-29 06:48] LABS: BASOPHILS % (AUTO) 0.3 % (0.0-2.0); EOSINOPHILS % (AUTO) 2.4 % (0.0-6.0); HEMATOCRIT 25 % (33-45); HEMOGLOBIN 8.4 g/dL (11.5-14.8); LYMPHOCYTES # (AUTO) 1.5 K/uL (0.8-4.8); LYMPHOCYTES % (AUTO) 17.2 % (20.0-44.0); MEAN CORPUSCULAR HGB CONC 34 g/dl (31.0-36.0); MEAN CORPUSCULAR VOLUME 91 fL (82-100); MONOCYTES # (AUTO) 0.8 K/uL (0.1-1.30); MONOCYTES % (AUTO) 9.7 % (2.0-12.0); NEUTROPHILS % (AUTO) 70.4 % (43.0-81.0); PLATELET COUNT (AUTO) 142 K/uL (150-450); RED BLOOD CELL COUNT(AUTO) 2.71 MIL/uL (4.0-5.2); WHITE BLOOD COUNT (AUTO) 8.5 K/uL (4.3-11.0)
--- NOTE | 2022-01-29 07:00 | NUR ---
PLASTIC PARTS FABRICATOR TRIMMER OPENING NOTES: PATIENT LAYING IN BED, A/O X 1, RIGHT SOFT WRIST RESTRAINT IN PLACE WITH CIRCULATION/MOTOR/SENSATION INTACT DISTALLY. PATIENT TOLERATING WELL ON ROOM AIR WITH NO S/S RESPIRATORY DISTRESS. NG TUBE IN PLACE, CLAMPED. R FEMORAL CENTRAL LINE IN PLACE WITH 1/2 NS INFUSING @ 75 ML/HR. SAFETY MEASURES IN PLACE: BED IN LOWEST LOCKED POSITION, SIDE RAILS UP X 2, CALL LIGHT WITHIN REACH. WILL CONTINUE TO MONITOR. Addendum: 01/29/22 at 1958 by ARIES SINGH RN TELE MONITOR IN PLACE READING SR
--- NOTE | 2022-01-29 07:50 | NUR ---
RN NOTES: PATIENT WAS NOTED PULLED HER NGT, NOTIFY CHARGE NURSE, REINSERT WITH A NEW ONE AND ORDERED CHEST X RAY TO CONFIRMED PATENDY, ENDORSE TO INCOMING NURSE.
--- NOTE | 2022-01-29 07:52 | NUR ---
FITTINGS TIGHTENER CLOSING NOTES: PATIENT WAS AWAKE IN BED, BED IN LOW POSITION CALL LIGHTS WITHIN REACH, NO COMPLAIN OF PAIN AND DISCOMFORT AT THIS TIME, NO SOB WAS OBSERVED, NGT REINSERTED AND ORDERED CHEST X RAY FOR PATENCY, PATIENT KEPT CLEAN AND DRY ALL NEEDS MET ENDORSE TO INCOMING SHIFT,
[2022-01-29 08:00] VITALS: BP 156/85
[2022-01-29 08:01] LABS: CALCIUM, SERUM 7.5 mg/dL (8.5-10.1); CARBON DIOXIDE 19 mmol/L (21-32); CREATININE 1.2 mg/dL (0.6-1.3); GLUCOSE 122 mg/dL (74-106); MAGNESIUM 1.4 mg/dL (1.8-2.4); PHOSPHORUS 2.2 mg/dL (2.5-4.9); POTASSIUM 3.3 mmol/L (3.5-5.1); SODIUM SERUM 144 mmol/L (136-145); UREA NITROGEN, BLOOD 20 mg/dL (7-18)
[2022-01-29] MEDS: PANTOPRAZOLE 40 MG/PACK PACK GT SCH ×3 (08:37→21:13)
[2022-01-29] MEDS: LEVETIRACETAM SOL (5 ML) 100 MG/ML UDC GT SCH ×3 (08:37→21:13)
[2022-01-29] MEDS: VANCOMYCIN 1 GM in IV D5W 250ml IV SCH (08:44)
[2022-01-29] MEDS: Magnesium 1GM/D5W 100ML PREMIX 100 ML IV SCH ×4 (10:30→14:39)
[2022-01-29] MEDS ORDERED: NEUTRA PHOS 1 POWD.PACKET PO ONE ×2 (11:00→13:00)
[2022-01-29] MEDS ORDERED: POTASSIUM CHLORIDE 20 MEQ POWDER PACKET PO SCH ×3 (11:00→15:00)
--- NOTE | 2022-01-29 11:22 | NUR ---
PELOTA MAKER NOTES NG TUBE ADVANCED PER IMAGING RECOMMENDATIONS. ORDER PLACED FOR FOLLOW UP CHEST X-RAY TO CONFIRM NG TUBE PLACEMENT. G-TUBE MEDICATIONS AND FEEDING HELD UNTIL PLACEMENT CONFIRMED.
[2022-01-29 12:00] VITALS: BP 141/91
[2022-01-29] MEDS: CEFTRIAXONE 1 G in IV D5W 50 ML IV SCH (16:48)
--- NOTE | 2022-01-29 19:00 | NUR ---
SUPERVISOR OVENS CLOSING NOTES PATIENT LAYING IN BED, A/O X 1, RIGHT SOFT WRIST RESTRAINT IN PLACE WITH CIRCULATION/MOTOR/SENSATION INTACT DISTALLY. PATIENT TOLERATING WELL ON ROOM AIR WITH NO S/S RESPIRATORY DISTRESS. NG TUBE IN PLACE, PLACEMENT CONFIRMED VIA X-RAY, GLUCERNA 1.2 JOSE ALFREDO @ 45 ML/HR INFUSING. R FEMORAL CENTRAL LINE IN PLACE WITH 1/2 NS INFUSING @ 75 ML/HR. SAFETY MEASURES IN PLACE: BED IN LOWEST LOCKED POSITION, SIDE RAILS UP X 2, CALL LIGHT WITHIN REACH. ALL NEEDS MET. PATIENT TURNED Q2H DURING SHIFT. WILL ENDORSE TO METAL MODEL BUILDER FOR CARLOS.
--- NOTE | 2022-01-29 19:30 | NUR ---
CRYOGENICS ENGINEER OPENING NOTES RECEIVED PATIENT IN BED ASLEEP, RESPONSIVE TO NAME. A/O X1. BREATHING EVEN AND NON-LABORED ON ROOM AIR. NOT IN APPARENT DISTRESS. NO PAIN OR DISCOMFORT NOTED. ON TELE MONITOR READING SINUS RHYTHM AT 73 BPM. HAS RIGHT FEMORAL CENTRAL LINE WITH 1/2 NS RUNNING AT 75 ML/HR. NO S/S OF INFILTRATION NOTED. NG-TUBE IN PLACE WITH JEVITY 1.2 RUNNING AT 40 ML/HR, ADJUSTED TO 45 ML/HR PER MD ORDER. RIGHT SOFT WRIST RESTRAINT ON. SKIN AND CIRCULATION WNL. SAFETY PRECAUTIONS IN PLACE: BED LOW AND LOCKED, SIDE RAILS UP X2, CALL LIGHT WITHIN REACH. WILL CONTINUE POC.
[2022-01-29 20:01] VITALS: BP 154/84
[2022-01-30 00:17] VITALS: BP 147/81
[2022-01-30] MEDS: IV 1/2NS 1000 ML 1,000 ML IV PRN (05:47)
--- NOTE | 2022-01-30 07:01 | NUR ---
ADOPTION COORDINATOR CLOSING NOTES PATIENT LAYING IN BED AWAKE. A/O X2, ABLE TO VERBALIZE SOME NEEDS. FREQUENT REORIENTATION NEEDED. STABLE THROUGHOUT THE SHIFT. AFEBRILE. ON TELE MONITOR READING SINUS TACHYCARDIA AT 109 BPM. RIGHT FEMORAL CENTRAL LINE INTACT, PATENT AND FLUSHING. NG-TUBE IN PLACE, AUSCULTATED AND IRRIGATED. NO RESIDUAL NOTED. HAS RIGHT SOFT WRIST RESTRAINT, SKIN AND CIRCULATION CHECKED FREQUENTLY. ALL DUE MEDS GIVEN AND NEEDS ATTENDED. SKIN CARE RENDERED. TURNED Q2H AND OFFLOAD. SAFETY PRECAUTIONS MAINTAINED. WILL ENDORSE TO NEXT SHIFT FOR CARLOS.
--- NOTE | 2022-01-30 07:30 | NUR ---
RN Receiving Report. Not able to assess patients mental status. NG Tube in place. IV running as ordered with no signs of infiltration. Patient looks comfortable and clean, no signs of distress or discomfort. All safety precautions taken, call light and table within reach, bed at lowest position.
[2022-01-30 08:00] VITALS: BP 160/99
[2022-01-30 08:56] LABS: BASOPHILS % (AUTO) 0.4 % (0.0-2.0); EOSINOPHILS % (AUTO) 2.9 % (0.0-6.0); HEMATOCRIT 23 % (33-45); HEMOGLOBIN 7.8 g/dL (11.5-14.8); LYMPHOCYTES # (AUTO) 1.3 K/uL (0.8-4.8); LYMPHOCYTES % (AUTO) 15.7 % (20.0-44.0); MEAN CORPUSCULAR HGB CONC 34 g/dl (31.0-36.0); MEAN CORPUSCULAR VOLUME 93 fL (82-100); MONOCYTES # (AUTO) 0.6 K/uL (0.1-1.30); MONOCYTES % (AUTO) 7.7 % (2.0-12.0); NEUTROPHILS # (AUTO) 6.1 K/uL (1.8-8.9); NEUTROPHILS % (AUTO) 73.3 % (43.0-81.0); PLATELET COUNT (AUTO) 149 K/uL (150-450); RED BLOOD CELL COUNT(AUTO) 2.47 MIL/uL (4.0-5.2); WHITE BLOOD COUNT (AUTO) 8.3 K/uL (4.3-11.0)
[2022-01-30 09:27] LABS: PHOSPHORUS 2.9 mg/dL (2.5-4.9); POTASSIUM 3.6 mmol/L (3.5-5.1)
[2022-01-30] MEDS: VANCOMYCIN 1 GM in IV D5W 250ml IV SCH (10:02)
[2022-01-30] MEDS: LEVETIRACETAM SOL (5 ML) 100 MG/ML UDC GT SCH ×2 (10:02→21:02)
[2022-01-30] MEDS: PANTOPRAZOLE 40 MG/PACK PACK GT SCH ×2 (10:02→21:02)
[2022-01-30] MEDS: hydrALAZINE HCL IV 20 MG VIAL IV PRN (10:03)
[2022-01-30] MEDS: ACETAMINOPHEN 650 MG/20.3 ML UDC GT PRN (11:26)
[2022-01-30 12:00] VITALS: BP 146/72
[2022-01-30 16:00] VITALS: BP 154/84
[2022-01-30] MEDS: CEFTRIAXONE 1 G in IV D5W 50 ML IV SCH (16:16)
--- NOTE | 2022-01-30 18:41 | NUR ---
RN Closing Report Patient AOx1. Removed restrains when providing care, aptient stated she was going to pull NG tube "Its getting in my nerves". Educated patient on importance of tolerating for feedings, patient needs reinforcement. Administered pain medication and provided care as needed. All safety precautions taken throughout shift. Call light and table within reach, bed at lowest position
--- NOTE | 2022-01-30 19:30 | NUR ---
TIMBER MANAGEMENT SPECIALIST OPENING NOTE RECEIVED PATIENT IN BED, WITH HOB ELEVATED. ALERT AND ORIENTED X1-2. AFEBRILE AND NOT IN ANY FORM OF ACUTE DISTRESS. BREATHING EVEN AND NON LABORED. WITH NG TUBE INTACT, RUNNING WITH JEVITY 45ML/HR. WITH IV ACCESS ON R FEMORAL CL RUNNING WITH 1/2 NS AT 75ML/HR. WITH SOFT RESTRAINTS ON R ARM, NOTED WITH GOOD SKIN INTEGRITY AND CIRCULATION. SAFETY MEASURES IN PLACE. KEPT BED IN LOCKED AND IN LOW POSITION. SIDE RAILS UP X2. ADVISED TO USE THE CALL LIGHT WHEN IN NEED OF ASSISTANCE.
[2022-01-30 20:00] VITALS: BP 154/92
[2022-01-31] VITALS: BP 156/99
[2022-01-31 04:00] VITALS: BP 153/62
[2022-01-31] MEDS: IV 1/2NS 1000 ML 1,000 ML IV PRN (06:26)
--- NOTE | 2022-01-31 06:30 | NUR ---
TALENT ACQUISITION COORDINATOR CLOSING NOTE PATIENT IN BED, WITH HOB ELEVATED. ALERT AND ORIENTED X1-2. ABLE TO COMMUNICATE NEEDS WITH THE STAFFS. AFEBRILE AND NOT IN ANY FORM OF ACUTE DISTRESS. BREATHING EVEN AND NON LABORED. WITH NG TUBE INTACT, RUNNING WITH JEVITY 45ML/HR., NO RESIDUAL NOTED. WITH IV ACCESS ON R FEMORAL CL RUNNING WITH 1/2 NS AT 75ML/HR., DRESSING CHANGED. WITH SOFT RESTRAINTS ON R ARM, NOTED WITH GOOD SKIN INTEGRITY AND CIRCULATION. SAFETY MEASURES IN PLACE. KEPT BED IN LOCKED AND IN LOW POSITION. SIDE RAILS UP X2. ADVISED TO USE THE CALL LIGHT WHEN IN NEED OF ASSISTANCE. ALL NURSING NEEDS ATTENDED. ENDORSED TO INCOMING NURSE FOR CONTINUITY OF CARE.
[2022-01-31 06:44] LABS: BASOPHILS % (AUTO) 0.4 % (0.0-2.0); EOSINOPHILS % (AUTO) 3.8 % (0.0-6.0); HEMATOCRIT 23 % (33-45); HEMOGLOBIN 7.8 g/dL (11.5-14.8); LYMPHOCYTES # (AUTO) 1.2 K/uL (0.8-4.8); LYMPHOCYTES % (AUTO) 20.8 % (20.0-44.0); MEAN CORPUSCULAR HGB CONC 35 g/dl (31.0-36.0); MEAN CORPUSCULAR VOLUME 91 fL (82-100); MONOCYTES # (AUTO) 0.5 K/uL (0.1-1.30); MONOCYTES % (AUTO) 8.3 % (2.0-12.0); NEUTROPHILS # (AUTO) 3.9 K/uL (1.8-8.9); NEUTROPHILS % (AUTO) 66.7 % (43.0-81.0); PLATELET COUNT (AUTO) 183 K/uL (150-450); RED BLOOD CELL COUNT(AUTO) 2.48 MIL/uL (4.0-5.2); WHITE BLOOD COUNT (AUTO) 5.9 K/uL (4.3-11.0)
--- NOTE | 2022-01-31 07:50 | NUR ---
RN Opening Note. Patient AOx2, not able to further assess. Patient states she wants to pull NG tube. Patient on soft right wrist restrain, released and provided range of motion, all safety precautions taken. NG Tube in place. IV running as ordered with no signs of infiltration. Patient looks comfortable and clean, no signs of distress or discomfort. All safety precautions taken, call light and table within reach, bed at lowest position. Discussed plan of care with patient, verbal agreement.
[2022-01-31 08:00] VITALS: BP 164/99
[2022-01-31 08:39] LABS: ALBUMIN 1.5 g/dL (3.4-5.0); BILIRUBIN,TOTAL 0.2 mg/dL (0.2-1.0); CALCIUM, SERUM 7.3 mg/dL (8.5-10.1); POTASSIUM 3.8 mmol/L (3.5-5.1); TOTAL PROTEIN, SERUM 5.2 g/dL (6.4-8.2)
[2022-01-31] MEDS: LEVETIRACETAM SOL (5 ML) 100 MG/ML UDC GT SCH (08:59)
[2022-01-31] MEDS: PANTOPRAZOLE 40 MG/PACK PACK GT SCH (08:59)
--- NOTE | 2022-01-31 10:23 | NUR ---
WOUND CARE CONSULT: PT PRESENTS WITH SCAR TO RT HEEL AND RASH TO BUTTOCKS. PT IS INCONTINENT. PT NOTED TO BE MOVING HER FEET AND LEGS ALMOST CONSTANTLY. DISCUSSED SKIN PROTECTION WITH NURSING STAFF. MD IN AGREEMENT WITH PLAN OF CARE.
[2022-01-31] MEDS ORDERED: CLOTRIMAZOLE 1% 15 GM TUBE TP SCH (11:00)
[2022-01-31 12:00] VITALS: BP 171/88
[2022-01-31 12:27] VITALS: BP 171/88
[2022-01-31 12:29] VITALS: BP 171/88
[2022-01-31] MEDS: hydrALAZINE HCL IV 20 MG VIAL IV PRN (12:29)
--- NOTE | 2022-01-31 15:08 | NUR ---
lumber planer Note Called Olimpia Flores, provided pts status and report to [facility]. [facility] transportation is here to pickle solution maker pt, unit#[id number]. All safety precautions taken, discharge was confirmed with and charge nurse. Patient transported out of the unit safely all safety precautions taken.
== END 2022-01-31 15:00 | DRG 720 ==
LOC: ER 00:05 → ICU 04:16 → TELE 01-27 22:26
PROVIDERS: ADMIT Nurse Practitioner Family; ATTEND Internal Medicine
PROC: 06HY33Z Insertion of Infusion Device into Lower Vein, Percutaneous Approach (ICD-10-PCS; 2022-01-24)
PROC: 30233N1 Transfusion of Nonautologous Red Blood Cells into Peripheral Vein, Percutaneous Approach (ICD-10-PCS; 2022-01-24)
PROC: 0DJ08ZZ Inspection of Upper Intestinal Tract, Via Natural or Artificial Opening Endoscopic (ICD-10-PCS; principal; 2022-01-26)
DX: A41.9 Sepsis, unspecified organism (principal); J96.01 Acute respiratory failure with hypoxia; N17.0 Acute kidney failure with tubular necrosis; R65.21 Severe sepsis with septic shock; R57.1 Hypovolemic shock; E43 Unspecified severe protein-calorie malnutrition; K29.71 Gastritis, unspecified, with bleeding; E87.1 Hypo-osmolality and hyponatremia; N13.6 Pyonephrosis; D64.9 Anemia, unspecified; E78.5 Hyperlipidemia, unspecified; E83.42 Hypomagnesemia; E87.5 Hyperkalemia; E87.6 Hypokalemia; E88.09 Other disorders of plasma-protein metabolism, not elsewhere classified; F03.94 Unspecified dementia, unspecified severity, with anxiety; F20.9 Schizophrenia, unspecified; G40.909 Epilepsy, unspecified, not intractable, without status epilepticus; I10 Essential (primary) hypertension; Z86.73 Personal history of transient ischemic attack (TIA), and cerebral infarction without residual deficits; K21.9 Gastro-esophageal reflux disease without esophagitis; Z20.822 Contact with and (suspected) exposure to COVID-19; B96.89 Other specified bacterial agents as the cause of diseases classified elsewhere; Z79.82 Long term (current) use of aspirin; Z79.899 Other long term (current) drug therapy
CPT/HCPCS: 36415; 36600; 71045-TC; 80048-TC; 80053-TC; 80076-TC; 80202-TC; 81001; 82272-TC; 82728-TC; 83540-TC; 83605-TC; 83735-TC; 84100-TC; 84439-TC; 84443-TC; 84484-TC; 85025-TC; 85730-TC; 86850-TC; 87040-TC; 87081-TC; 87086-TC; 87186-TC; 92526; 92611-TC; 97110-TC; 97530-TC; C9113; C9803; G0378; J0360; J0696; J1953; J2543; J2704; J3370; J3475; J3480; J3490; J7030; J7050; J7060; P9016; Q9967

== ENCOUNTER 2022-11-17 15:16 | Emergency (ER) | payer MEDICARE, OTHER ==
[~2022-11-17] VITALS: Ht 154.9 cm; Wt 49.9 kg
[~2022-11-17 15:16] MED LIST: ACET-868 PO; AMLO-213 PO; ASCO500T10 PO; ASPI-1169 PO; BISA10SU11 RC; DOCU100C36 PO; ERGO500093 PO; FAMO20TA8 PO; FERR325T23 PO; FLUO20CA42 PO; LABE200T5 PO; LEVE500T20 PO; LISI40TA13 PO; LORA10TA7 PO; MEGE400O4 PO; MULT-447 PO; NITR100C6 PO; RISP0.2515 PO; SENN-18 PO; SIMV10TA98 PO
[2022-11-17 15:17] VITALS: TEMP 98.2
[2022-11-17 16:16] LABS: BASOPHILS % (AUTO) 0.5 % (0.0-2.0); EOSINOPHILS # (AUTO) 0.2 K/uL (0.0-0.7); EOSINOPHILS % (AUTO) 2.4 % (0.0-6.0); HEMATOCRIT 25 % (33-45); HEMOGLOBIN 8.6 g/dL (11.5-14.8); LYMPHOCYTES # (AUTO) 1.4 K/uL (0.8-4.8); LYMPHOCYTES % (AUTO) 16.1 % (20.0-44.0); MEAN CORPUSCULAR HEMOGLOBIN 31 PG (26.0-33.0); MEAN CORPUSCULAR HGB CONC 34 g/dl (31.0-36.0); MEAN CORPUSCULAR VOLUME 91 fL (82-100); MONOCYTES # (AUTO) 0.4 K/uL (0.1-1.30); MONOCYTES % (AUTO) 4.6 % (2.0-12.0); NEUTROPHILS # (AUTO) 6.9 K/uL (1.8-8.9); NEUTROPHILS % (AUTO) 76.4 % (43.0-81.0); PLATELET COUNT (AUTO) 292 K/uL (150-450); RED BLOOD CELL COUNT(AUTO) 2.77 MIL/uL (4.0-5.2); RED CELL DISTRIBUTION WIDTH 14.4 % (11.5-15.0)
[2022-11-17 16:34] LABS: ALANINE AMINOTRANSFERASE 17 U/L (12-78); ALKALINE PHOSPHATASE 84 U/L (46-116); ASPARTATE AMINOTRANSFERASE 13 U/L (15-37); BILIRUBIN,DIRECT 0.1 mg/dL (0.0-0.2); BILIRUBIN,TOTAL 0.4 mg/dL (0.2-1.0); CARBON DIOXIDE 24 mmol/L (21-32); CHLORIDE 105 mmol/L (98-107); CREATININE 1.4 mg/dL (0.6-1.3); GLUCOSE 107 mg/dL (74-106); LIPASE 61 U/L (73-393); POTASSIUM 3.3 mmol/L (3.5-5.1); SODIUM SERUM 137 mmol/L (136-145); UREA NITROGEN, BLOOD 36 mg/dL (7-18)
[2022-11-17 16:36] LABS: INR 1.03 (0.91-1.10); PARTIAL THROMBOPLASTIN TIME 29.5 SEC (24.3-34.3); PROTHROMBIN TIME 10.8 SECS (9.2-11.1)
[2022-11-17 20:02] VITALS: BP 160/80; O2SAT 99
== END 2022-11-17 20:03 ==
LOC: ER 16:21
DX: D64.9 Anemia, unspecified (principal); I10 Essential (primary) hypertension; Z79.82 Long term (current) use of aspirin; Z79.899 Other long term (current) drug therapy
CPT/HCPCS: 36415; 80048-TC; 80076-TC; 82962-TC; 83690-TC; 84484-TC; 85025-TC; 85730-TC

== ENCOUNTER 2022-12-05 17:37 | Inpatient (IN) | payer MEDICARE, OTHER ==
[~2022-12-05] VITALS: Ht 154.9 cm; Wt 50.5 kg
[2022-12-05] MEDS ORDERED: IV NS 0.9% 500 ML BAG IV ONE (18:00)
[2022-12-05 18:16] LABS: BASOPHILS % (AUTO) 0.5 % (0.0-2.0); EOSINOPHILS # (AUTO) 0.4 K/uL (0.0-0.7); EOSINOPHILS % (AUTO) 4.2 % (0.0-6.0); HEMATOCRIT 26 % (33-45); HEMOGLOBIN 8.9 g/dL (11.5-14.8); LYMPHOCYTES # (AUTO) 1.4 K/uL (0.8-4.8); LYMPHOCYTES % (AUTO) 15.8 % (20.0-44.0); MEAN CORPUSCULAR HEMOGLOBIN 32 PG (26.0-33.0); MEAN CORPUSCULAR HGB CONC 34 g/dl (31.0-36.0); MEAN CORPUSCULAR VOLUME 93 fL (82-100); MONOCYTES # (AUTO) 0.6 K/uL (0.1-1.30); MONOCYTES % (AUTO) 6.6 % (2.0-12.0); NEUTROPHILS # (AUTO) 6.7 K/uL (1.8-8.9); NEUTROPHILS % (AUTO) 72.9 % (43.0-81.0); PLATELET COUNT (AUTO) 270 K/uL (150-450); RED CELL DISTRIBUTION WIDTH 14.1 % (11.5-15.0); WHITE BLOOD COUNT (AUTO) 9.2 K/uL (4.3-11.0)
[2022-12-05] MEDS ORDERED: CRAN425C6 PO (18:26)
[2022-12-05] MEDS ORDERED: AMIN30LI2 PO (18:26)
[2022-12-05] MEDS ORDERED: VALB40CA2 PO (18:26)
[2022-12-05] MEDS ORDERED: ERGO800011 PO (18:26)
[2022-12-05 18:29] LABS: CREATININE 1.5 mg/dL (0.6-1.3); POTASSIUM 3.7 mmol/L (3.5-5.1)
[2022-12-05 18:34] LABS: BILIRUBIN,DIRECT 0.2 mg/dL (0.0-0.2); BILIRUBIN,TOTAL 0.6 mg/dL (0.2-1.0); TOTAL PROTEIN, SERUM 6.8 g/dL (6.4-8.2)
[2022-12-05 18:59] LABS: APPEARANCE,URINE CLOUDY (CLEAR); BILIRUBIN,URINE NEGATIVE (NEGATIVE); BLOOD, URINE 1+ Ery/uL (NEGATIVE); COLOR,URINE YELLOW (YELLOW); KETONES,URINE NEGATIVE (NEGATIVE); LEUKOCYTE ESTERASE ,URINE 3+ (NEGATIVE); NITRITE, URINE NEGATIVE (NEGATIVE); PROTEIN,URINE 2+ mg/dl (NEGATIVE); UGLUCOSE NEGATIVE (NEGATIVE); UROBILINOGEN,URINE 0.2 EU/dL (0.2)
[2022-12-05] MEDS ORDERED: CEFTRIAXONE 1GM BAG (ER ONLY) 50 ML IV ONE (19:09)
[2022-12-05 19:23] LABS: WBC,URINE 21-50 /HPF (0-3)
[2022-12-05 19:24] LABS: ADD URINE CULTURE YES; BACTERIA,URINE 4+ /HPF (None Seen); MUCUS,URINE Moderate /LPF (None Seen); TRIPLE PHOSPHATE CRYSTAL,UR Rare /HPF (None Seen)
[2022-12-05] MEDS ORDERED: CEFTRIAXONE 1GM BAG (ER ONLY) 1 GM/50 ML PIGGYBACK IV ONE (19:30)
[2022-12-05] MEDS ORDERED: TEMAZEPAM 15 MG CAPSULE PO PRN (20:00)
[2022-12-05] MEDS ORDERED: HYDROCODONE/APAP 5/325MG TABLET PO PRN (20:00)
[2022-12-05] MEDS ORDERED: ACETAMINOPHEN 325 MG TABLET PO PRN (20:00)
[2022-12-05] MEDS ORDERED: Z GUARD REMEDY 4 OZ OINT TP PRN (20:00)
[2022-12-05] MEDS ORDERED: MAGNESIUM HYDROXIDE 30 ML UDC PO PRN (20:00)
[2022-12-05] MEDS ORDERED: MORPHINE SULFATE INJ 2 MG/ML DISP.SYRIN IV PRN (20:00)
[2022-12-05] MEDS ORDERED: MAG HYDROX/AL HYDROX/SIMETH 30 ML UDC PO PRN (20:00)
[2022-12-05] MEDS ORDERED: ONDANSETRON HCL/PF 4 MG/2 ML VIAL IVP PRN (20:00)
[2022-12-05] MEDS ORDERED: LEVETIRACETAM (500MG) 500 MG in IV NS 0.9% 100 ML IV SCH (22:00)
[2022-12-05] MEDS: IV NS 0.9% 1,000 ML IV PRN (22:05)
[2022-12-06 05:57] LABS: BASOPHILS % (AUTO) 0.4 % (0.0-2.0); EOSINOPHILS # (AUTO) 0.4 K/uL (0.0-0.7); EOSINOPHILS % (AUTO) 5.1 % (0.0-6.0); HEMATOCRIT 24 % (33-45); HEMOGLOBIN 8.2 g/dL (11.5-14.8); LYMPHOCYTES # (AUTO) 1.7 K/uL (0.8-4.8); LYMPHOCYTES % (AUTO) 21.8 % (20.0-44.0); MEAN CORPUSCULAR HEMOGLOBIN 32 PG (26.0-33.0); MEAN CORPUSCULAR HGB CONC 34 g/dl (31.0-36.0); MEAN CORPUSCULAR VOLUME 94 fL (82-100); MONOCYTES # (AUTO) 0.5 K/uL (0.1-1.30); MONOCYTES % (AUTO) 6.6 % (2.0-12.0); NEUTROPHILS # (AUTO) 5.1 K/uL (1.8-8.9); NEUTROPHILS % (AUTO) 66.1 % (43.0-81.0); PLATELET COUNT (AUTO) 246 K/uL (150-450); RED BLOOD CELL COUNT(AUTO) 2.56 MIL/uL (4.0-5.2); RED CELL DISTRIBUTION WIDTH 14.3 % (11.5-15.0); WHITE BLOOD COUNT (AUTO) 7.6 K/uL (4.3-11.0)
[2022-12-06 06:18] LABS: CREATININE 1.4 mg/dL (0.6-1.3); MAGNESIUM 2.2 mg/dL (1.8-2.4); PHOSPHORUS 3.7 mg/dL (2.5-4.9); POTASSIUM 3.7 mmol/L (3.5-5.1)
[2022-12-06 06:32] LABS: THYROID STIMULATING HORMONE 0.651 uIU/mL (0.358-3.74)
[2022-12-06 07:30] VITALS: BP 125/55; TEMP 97.7; O2SAT 99
[2022-12-06] MEDS: PANTOPRAZOLE 40 MG TABLET.DR PO SCH (08:24)
[2022-12-06] MEDS: LEVETIRACETAM (250 MG) 250 MG TABLET PO SCH ×2 (09:03→20:52)
[2022-12-06] MEDS: ENSURE ENLIVE 237 ML LIQUID (VANILLA) PO SCH (09:23)
[2022-12-06] MEDS ORDERED: BISACODYL SUPP (10 MG) 10 MG/SUPP.RECT SUPP.RECT RC PRN (10:00)
[2022-12-06] MEDS: IV NS 0.9% 1,000 ML IV PRN (13:20)
[2022-12-06 16:00] VITALS: BP 129/71; TEMP 98.1; O2SAT 99
[2022-12-06] MEDS: SENNOSIDES 8.6 MG TABLET PO SCH (16:26)
[2022-12-06] MEDS: LABETALOL HCL (100MG) 100 MG TABLET PO SCH (16:27)
[2022-12-06 20:00] VITALS: BP 133/61; TEMP 98.4; O2SAT 98
[2022-12-06] MEDS: CEFTRIAXONE 1 G in IV D5W 50 ML IV SCH (20:52)
[2022-12-06] MEDS: HEPARIN SODIUM, PORCINE 5000 UNITS/1 ML VIAL SQ SCH (20:53)
[2022-12-06] MEDS: SIMVASTATIN 10 MG TABLET PO SCH (21:08)
[2022-12-06] MEDS ORDERED: Medication Not On Formulary EA (Valbenazine Tosylate (Ingrezza) 40 MG) PO SCH (22:00)
[2022-12-07] MEDS: IV NS 0.9% 1,000 ML IV PRN ×2 (02:54→17:34)
[2022-12-07 05:49] LABS: BASOPHILS % (AUTO) 0.5 % (0.0-2.0); EOSINOPHILS # (AUTO) 0.4 K/uL (0.0-0.7); EOSINOPHILS % (AUTO) 6.1 % (0.0-6.0); HEMATOCRIT 24 % (33-45); HEMOGLOBIN 8.2 g/dL (11.5-14.8); LYMPHOCYTES # (AUTO) 1.7 K/uL (0.8-4.8); LYMPHOCYTES % (AUTO) 24.6 % (20.0-44.0); MEAN CORPUSCULAR HEMOGLOBIN 32 PG (26.0-33.0); MEAN CORPUSCULAR HGB CONC 34 g/dl (31.0-36.0); MEAN CORPUSCULAR VOLUME 92 fL (82-100); MONOCYTES # (AUTO) 0.4 K/uL (0.1-1.30); MONOCYTES % (AUTO) 6.2 % (2.0-12.0); NEUTROPHILS # (AUTO) 4.3 K/uL (1.8-8.9); NEUTROPHILS % (AUTO) 62.6 % (43.0-81.0); PLATELET COUNT (AUTO) 218 K/uL (150-450); RED CELL DISTRIBUTION WIDTH 14.2 % (11.5-15.0); WHITE BLOOD COUNT (AUTO) 6.8 K/uL (4.3-11.0)
[2022-12-07 06:31] LABS: CALCIUM, SERUM 8.4 mg/dL (8.5-10.1); CREATININE 1.1 mg/dL (0.6-1.3); MAGNESIUM 1.7 mg/dL (1.8-2.4); PHOSPHORUS 3.2 mg/dL (2.5-4.9); POTASSIUM 3.6 mmol/L (3.5-5.1)
[2022-12-07 08:04] VITALS: BP 139/69; TEMP 99; O2SAT 98
[2022-12-07] MEDS: PANTOPRAZOLE 40 MG TABLET.DR PO SCH (08:22)
[2022-12-07] MEDS: SENNOSIDES 8.6 MG TABLET PO SCH ×2 (08:24→16:12)
[2022-12-07] MEDS: FERROUS SULFATE (325 MG) 325 MG/TAB TABLET PO SCH (08:24)
[2022-12-07] MEDS: ASPIRIN 81 MG TAB.CHEW PO SCH (08:24)
[2022-12-07] MEDS: LEVETIRACETAM (250 MG) 250 MG TABLET PO SCH ×2 (08:24→21:26)
[2022-12-07] MEDS: ENSURE ENLIVE 237 ML LIQUID (VANILLA) PO SCH (08:25)
[2022-12-07] MEDS: LABETALOL HCL (100MG) 100 MG TABLET PO SCH ×2 (08:25→16:13)
[2022-12-07] MEDS: PROSOURCE / PROSTAT (PYXIS) 30 ML UDC PO SCH (08:25)
[2022-12-07] MEDS: HEPARIN SODIUM, PORCINE 5000 UNITS/1 ML VIAL SQ SCH ×2 (08:28→21:28)
[2022-12-07] MEDS ORDERED: MAGNESIUM OXIDE 400 MG TABLET PO ONE (10:00)
[2022-12-07 12:00] LABS: CREATININE, URINE 62.1 MG/DL (30.0-125.0); URINE TOTAL PROTEIN 36.1 mg/dL (0-11.9)
[2022-12-07 16:09] VITALS: BP 128/61; TEMP 98.1; O2SAT 100
[2022-12-07 20:01] VITALS: BP 129/54; TEMP 97.5; O2SAT 98
[2022-12-07] MEDS: CEFTRIAXONE 1 G in IV D5W 50 ML IV SCH (21:26)
[2022-12-07] MEDS: SIMVASTATIN 10 MG TABLET PO SCH (21:26)
[2022-12-08 07:19] LABS: BASOPHILS % (AUTO) 0.5 % (0.0-2.0); EOSINOPHILS # (AUTO) 0.3 K/uL (0.0-0.7); EOSINOPHILS % (AUTO) 5.4 % (0.0-6.0); HEMATOCRIT 24 % (33-45); HEMOGLOBIN 8.1 g/dL (11.5-14.8); LYMPHOCYTES # (AUTO) 1.1 K/uL (0.8-4.8); LYMPHOCYTES % (AUTO) 19.4 % (20.0-44.0); MEAN CORPUSCULAR HEMOGLOBIN 31 PG (26.0-33.0); MEAN CORPUSCULAR HGB CONC 34 g/dl (31.0-36.0); MEAN CORPUSCULAR VOLUME 92 fL (82-100); MONOCYTES # (AUTO) 0.4 K/uL (0.1-1.30); MONOCYTES % (AUTO) 6.5 % (2.0-12.0); NEUTROPHILS # (AUTO) 3.9 K/uL (1.8-8.9); NEUTROPHILS % (AUTO) 68.2 % (43.0-81.0); PLATELET COUNT (AUTO) 206 K/uL (150-450); RED BLOOD CELL COUNT(AUTO) 2.59 MIL/uL (4.0-5.2); WHITE BLOOD COUNT (AUTO) 5.8 K/uL (4.3-11.0)
[2022-12-08 07:39] LABS: CALCIUM, SERUM 8.5 mg/dL (8.5-10.1); CREATININE 1.2 mg/dL (0.6-1.3); MAGNESIUM 1.7 mg/dL (1.8-2.4); POTASSIUM 3.5 mmol/L (3.5-5.1)
[2022-12-08] MEDS: FERROUS SULFATE (325 MG) 325 MG/TAB TABLET PO SCH (08:17)
[2022-12-08] MEDS: LABETALOL HCL (100MG) 100 MG TABLET PO SCH (08:17)
[2022-12-08] MEDS: PANTOPRAZOLE 40 MG TABLET.DR PO SCH (08:17)
[2022-12-08] MEDS: SENNOSIDES 8.6 MG TABLET PO SCH (08:17)
[2022-12-08] MEDS: LEVETIRACETAM (250 MG) 250 MG TABLET PO SCH (08:17)
[2022-12-08] MEDS: ASPIRIN 81 MG TAB.CHEW PO SCH (08:17)
[2022-12-08] MEDS: HEPARIN SODIUM, PORCINE 5000 UNITS/1 ML VIAL SQ SCH (08:19)
[2022-12-08] MEDS: PROSOURCE / PROSTAT (PYXIS) 30 ML UDC PO SCH (08:39)
[2022-12-08] MEDS: IV NS 0.9% 1,000 ML IV PRN (08:39)
[2022-12-08] MEDS: ENSURE ENLIVE 237 ML LIQUID (VANILLA) PO SCH (08:39)
[2022-12-08 08:40] VITALS: BP 140/62; TEMP 98.2; O2SAT 98
[2022-12-08] MEDS ORDERED: MAGNESIUM OXIDE 400 MG TABLET PO ONE (10:00)
[2022-12-08] MEDS ORDERED: CEFT1VIA15 IV (11:49)
[2022-12-08] MEDS ORDERED: IV NS 0.9% 1,000 ML IV PRN (12:04)
== END 2022-12-08 14:53 | DRG 640 ==
LOC: ER 17:42 → MED 20:44
PROVIDERS: ADMIT Nurse Practitioner Acute Care; ATTEND Nurse Practitioner Family
DX: R62.7 Adult failure to thrive (principal); E43 Unspecified severe protein-calorie malnutrition; N17.0 Acute kidney failure with tubular necrosis; G93.41 Metabolic encephalopathy; N39.0 Urinary tract infection, site not specified; R64 Cachexia; B96.89 Other specified bacterial agents as the cause of diseases classified elsewhere; F01.50 Vascular dementia, unspecified severity, without behavioral disturbance, psychotic disturbance, mood disturbance, and anxiety; D63.8 Anemia in other chronic diseases classified elsewhere; E78.5 Hyperlipidemia, unspecified; E88.09 Other disorders of plasma-protein metabolism, not elsewhere classified; F20.9 Schizophrenia, unspecified; G40.909 Epilepsy, unspecified, not intractable, without status epilepticus; Z86.73 Personal history of transient ischemic attack (TIA), and cerebral infarction without residual deficits; K21.9 Gastro-esophageal reflux disease without esophagitis; Z79.899 Other long term (current) drug therapy; I12.9 Hypertensive chronic kidney disease with stage 1 through stage 4 chronic kidney disease, or unspecified chronic kidney disease; N18.9 Chronic kidney disease, unspecified; I27.20 Pulmonary hypertension, unspecified; N20.0 Calculus of kidney; N28.1 Cyst of kidney, acquired; R13.10 Dysphagia, unspecified; Z79.82 Long term (current) use of aspirin; Z87.440 Personal history of urinary (tract) infections
CPT/HCPCS: 36415; 71045-TC; 76770-TC; 80048-TC; 80076-TC; 81001; 82570-TC; 82607-TC; 82728-TC; 83540-TC; 83690-TC; 83735-TC; 84100-TC; 84300-TC; 84443-TC; 85025-TC; 86850-TC; 87081-TC; 87086-TC; 92526; 92611-TC; 97110-TC; 97112-TC; G0378; J0696; J1644; J1953; J7030; J7040; J7060

== ENCOUNTER 2023-03-15 11:53 | Inpatient (IN) | payer MEDICARE, OTHER ==
[~2023-03-15] VITALS: Ht 165.1 cm; Wt 46.3 kg
[~2023-03-15 11:53] MED LIST changes: +AMIN30LI2 PO; -ASCO500T10 PO; +CEFT1VIA15 IV; +CRAN425C6 PO; -DOCU100C36 PO; -ERGO500093 PO; +ERGO800011 PO; -FLUO20CA42 PO; -LORA10TA7 PO; -MEGE400O4 PO; -MULT-447 PO; -NITR100C6 PO; -RISP0.2515 PO; +VALB40CA2 PO
[2023-03-15] MEDS ORDERED: LEVE500S9 PO (12:25)
[2023-03-15] MEDS ORDERED: MAGN400O6 PO (12:25)
[2023-03-15] MEDS ORDERED: FERR220S2 PO (12:25)
[2023-03-15] MEDS ORDERED: SENN-261 PO (12:25)
[2023-03-15] MEDS ORDERED: PANT40SU2 PO (12:25)
[2023-03-15 14:03] LABS: BASOPHILS # (AUTO) 0.1 K/uL (0.0-0.2); EOSINOPHILS # (AUTO) 0.2 K/uL (0.0-0.7); EOSINOPHILS % (AUTO) 2.7 % (0.0-6.0); HEMATOCRIT 21 % (33-45); LYMPHOCYTES % (AUTO) 12.1 % (20.0-44.0); MEAN CORPUSCULAR HEMOGLOBIN 27 PG (26.0-33.0); MEAN CORPUSCULAR HGB CONC 32 g/dl (31.0-36.0); MEAN CORPUSCULAR VOLUME 84 fL (82-100); MONOCYTES # (AUTO) 0.6 K/uL (0.1-1.30); MONOCYTES % (AUTO) 6.8 % (2.0-12.0); NEUTROPHILS # (AUTO) 6.4 K/uL (1.8-8.9); NEUTROPHILS % (AUTO) 77.4 % (43.0-81.0); PLATELET COUNT (AUTO) 154 K/uL (150-450); RED CELL DISTRIBUTION WIDTH 16.8 % (11.5-15.0); WHITE BLOOD COUNT (AUTO) 8.3 K/uL (4.3-11.0)
[2023-03-15 14:11] LABS: HEMOGLOBIN 6.8 g/dL (11.5-14.8)
[2023-03-15 14:19] LABS: CALCIUM, SERUM 8.6 mg/dL (8.5-10.1); CREATININE 3.6 mg/dL (0.6-1.3); POTASSIUM 4.3 mmol/L (3.5-5.1)
[2023-03-15 14:21] LABS: ALBUMIN 2.1 g/dL (3.4-5.0); BILIRUBIN,TOTAL 0.4 mg/dL (0.2-1.0); TOTAL PROTEIN, SERUM 6.4 g/dL (6.4-8.2)
[2023-03-15] MEDS ORDERED: IV NS 0.9% 1,000 ML BAG IV ONE (14:30)
[2023-03-15 14:49] LABS: EOSINOPHILS % (MANUAL) 4 % (0-4); LYMPHOCYTES % (MANUAL) 18 % (16-48); MONOCYTES % (MANUAL) 4 % (0-11.0); NEUTROPHILS % (MANUAL) 74 (42-76); PLATELET ESTIMATE ADEQUATE
[2023-03-15] MEDS ORDERED: MAG HYDROX/AL HYDROX/SIMETH 30 ML UDC PO PRN (18:30)
[2023-03-15] MEDS ORDERED: IV 1/2NS 1000 ML 1,000 ML IV PRN (18:30)
[2023-03-15] MEDS ORDERED: BISACODYL SUPP (10 MG) 10 MG/SUPP.RECT SUPP.RECT RC PRN (18:30)
[2023-03-15] MEDS ORDERED: ONDANSETRON HCL/PF 4 MG/2 ML VIAL IVP PRN (18:30)
[2023-03-15] MEDS ORDERED: Z GUARD REMEDY 4 OZ OINT TP PRN (18:30)
[2023-03-15] MEDS ORDERED: MAGNESIUM HYDROXIDE 30 ML UDC PO PRN ×2 (18:30)
[2023-03-15] MEDS ORDERED: ACETAMINOPHEN 325 MG TABLET PO PRN (18:30)
[2023-03-15] MEDS ORDERED: PANTOPRAZOLE 40 MG VIAL ONE (20:52)
[2023-03-15] MEDS: PANTOPRAZOLE 40 MG VIAL IV SCH (21:10)
[2023-03-15] MEDS ORDERED: SIMVASTATIN 10 MG TABLET ONE (22:18)
[2023-03-15] MEDS: SIMVASTATIN 10 MG TABLET PO SCH (22:24)
[2023-03-16 06:51] LABS: BASOPHILS % (AUTO) 0.5 % (0.0-2.0); EOSINOPHILS # (AUTO) 0.2 K/uL (0.0-0.7); EOSINOPHILS % (AUTO) 2.4 % (0.0-6.0); HEMATOCRIT 26 % (33-45); HEMOGLOBIN 8.6 g/dL (11.5-14.8); LYMPHOCYTES # (AUTO) 1.3 K/uL (0.8-4.8); LYMPHOCYTES % (AUTO) 14.6 % (20.0-44.0); MEAN CORPUSCULAR HEMOGLOBIN 29 PG (26.0-33.0); MEAN CORPUSCULAR HGB CONC 33 g/dl (31.0-36.0); MEAN CORPUSCULAR VOLUME 89 fL (82-100); MONOCYTES # (AUTO) 0.7 K/uL (0.1-1.30); MONOCYTES % (AUTO) 8.1 % (2.0-12.0); NEUTROPHILS # (AUTO) 6.5 K/uL (1.8-8.9); NEUTROPHILS % (AUTO) 74.4 % (43.0-81.0); PLATELET COUNT (AUTO) 149 K/uL (150-450); RED BLOOD CELL COUNT(AUTO) 2.96 MIL/uL (4.0-5.2); RED CELL DISTRIBUTION WIDTH 18.2 % (11.5-15.0); WHITE BLOOD COUNT (AUTO) 8.7 K/uL (4.3-11.0)
[2023-03-16 07:04] LABS: BILIRUBIN,TOTAL 0.6 mg/dL (0.2-1.0); CALCIUM, SERUM 8.5 mg/dL (8.5-10.1); CREATININE 2.9 mg/dL (0.6-1.3); MAGNESIUM 2.2 mg/dL (1.8-2.4); PHOSPHORUS 3.2 mg/dL (2.5-4.9); POTASSIUM 3.8 mmol/L (3.5-5.1); TOTAL PROTEIN, SERUM 6.1 g/dL (6.4-8.2)
[2023-03-16] MEDS ORDERED: PANTOPRAZOLE 40 MG/PACK PACK PO SCH (07:30)
[2023-03-16] MEDS ORDERED: ASPIRIN 81 MG TAB.CHEW PO SCH ×2 (09:00)
[2023-03-16] MEDS: FERROUS SULFATE UDC 300 MG/5 ML UDC PO SCH (09:06)
[2023-03-16] MEDS: LEVETIRACETAM (250 MG) 250 MG TABLET PO SCH ×2 (09:07→16:33)
[2023-03-16] MEDS: SENNOSIDES 8.6 MG TABLET PO SCH ×2 (09:07→16:33)
[2023-03-16] MEDS: PANTOPRAZOLE 40 MG VIAL IV SCH (09:07)
[2023-03-16] MEDS: LABETALOL HCL (100MG) 100 MG TABLET PO SCH ×2 (09:09→16:34)
[2023-03-16 10:36] VITALS: BP 134/80; TEMP 98.1; O2SAT 98
[2023-03-16 11:23] LABS: INR 1.03 (0.91-1.10); PROTHROMBIN TIME 10.9 SECS (9.2-11.1)
[2023-03-16] MEDS: SIMVASTATIN 10 MG TABLET PO SCH (22:04)
[2023-03-16] MEDS: IV NS 0.9% 1,000 ML IV PRN (23:34)
[2023-03-17 08:00] VITALS: BP 147/59; TEMP 98.2; O2SAT 98
[2023-03-17] MEDS: PANTOPRAZOLE 40 MG VIAL IV SCH (08:55)
[2023-03-17] MEDS: FERROUS SULFATE UDC 300 MG/5 ML UDC PO SCH (08:55)
[2023-03-17] MEDS: SENNOSIDES 8.6 MG TABLET PO SCH ×2 (08:56→17:13)
[2023-03-17] MEDS: LABETALOL HCL (100MG) 100 MG TABLET PO SCH ×2 (09:25→17:13)
[2023-03-17] MEDS: LEVETIRACETAM (250 MG) 250 MG TABLET PO SCH ×2 (09:26→17:12)
[2023-03-17] MEDS: IV NS 0.9% 1,000 ML IV PRN (09:31)
[2023-03-17 11:11] LABS: IRON, SERUM 10 ug/dl (50-175); TOTAL IRON BINDING CAPACITY 138 ug/dl (250-450)
[2023-03-17 11:15] LABS: BASOPHILS % (AUTO) 0.4 % (0.0-2.0); EOSINOPHILS # (AUTO) 0.2 K/uL (0.0-0.7); HEMATOCRIT 24 % (33-45); HEMOGLOBIN 7.8 g/dL (11.5-14.8); LYMPHOCYTES # (AUTO) 1.3 K/uL (0.8-4.8); LYMPHOCYTES % (AUTO) 17.2 % (20.0-44.0); MEAN CORPUSCULAR HEMOGLOBIN 29 PG (26.0-33.0); MEAN CORPUSCULAR HGB CONC 33 g/dl (31.0-36.0); MEAN CORPUSCULAR VOLUME 90 fL (82-100); MONOCYTES # (AUTO) 0.6 K/uL (0.1-1.30); MONOCYTES % (AUTO) 8.2 % (2.0-12.0); NEUTROPHILS # (AUTO) 5.3 K/uL (1.8-8.9); NEUTROPHILS % (AUTO) 71.2 % (43.0-81.0); PLATELET COUNT (AUTO) 169 K/uL (150-450); RED BLOOD CELL COUNT(AUTO) 2.66 MIL/uL (4.0-5.2); RED CELL DISTRIBUTION WIDTH 18.5 % (11.5-15.0); WHITE BLOOD COUNT (AUTO) 7.5 K/uL (4.3-11.0)
[2023-03-17 11:16] LABS: ALBUMIN 1.8 g/dL (3.4-5.0); BILIRUBIN,TOTAL 0.4 mg/dL (0.2-1.0); CALCIUM, SERUM 8.4 mg/dL (8.5-10.1); CREATININE 2.5 mg/dL (0.6-1.3); MAGNESIUM 1.9 mg/dL (1.8-2.4); PHOSPHORUS 3.3 mg/dL (2.5-4.9); POTASSIUM 3.5 mmol/L (3.5-5.1); TOTAL PROTEIN, SERUM 5.6 g/dL (6.4-8.2)
[2023-03-17 15:30] VITALS: BP 154/90; TEMP 98.7; O2SAT 94
[2023-03-17] MEDS: SIMVASTATIN 10 MG TABLET PO SCH (22:30)
[2023-03-18 06:38] LABS: BASOPHILS % (AUTO) 0.3 % (0.0-2.0); EOSINOPHILS # (AUTO) 0.3 K/uL (0.0-0.7); HEMATOCRIT 23 % (33-45); HEMOGLOBIN 7.6 g/dL (11.5-14.8); LYMPHOCYTES # (AUTO) 1.5 K/uL (0.8-4.8); LYMPHOCYTES % (AUTO) 23.3 % (20.0-44.0); MEAN CORPUSCULAR HEMOGLOBIN 29 PG (26.0-33.0); MEAN CORPUSCULAR HGB CONC 33 g/dl (31.0-36.0); MEAN CORPUSCULAR VOLUME 88 fL (82-100); MONOCYTES # (AUTO) 0.5 K/uL (0.1-1.30); MONOCYTES % (AUTO) 8.1 % (2.0-12.0); NEUTROPHILS # (AUTO) 4.1 K/uL (1.8-8.9); NEUTROPHILS % (AUTO) 64.3 % (43.0-81.0); PLATELET COUNT (AUTO) 196 K/uL (150-450); RED CELL DISTRIBUTION WIDTH 18.3 % (11.5-15.0); WHITE BLOOD COUNT (AUTO) 6.4 K/uL (4.3-11.0)
[2023-03-18 06:56] LABS: CALCIUM, SERUM 8.4 mg/dL (8.5-10.1); CREATININE 2.2 mg/dL (0.6-1.3); MAGNESIUM 1.7 mg/dL (1.8-2.4); PHOSPHORUS 3.6 mg/dL (2.5-4.9); POTASSIUM 3.3 mmol/L (3.5-5.1)
[2023-03-18] MEDS: FERROUS SULFATE UDC 300 MG/5 ML UDC PO SCH (08:11)
[2023-03-18] MEDS: LEVETIRACETAM (250 MG) 250 MG TABLET PO SCH ×2 (08:11→16:44)
[2023-03-18] MEDS: SENNOSIDES 8.6 MG TABLET PO SCH ×2 (08:11→16:44)
[2023-03-18] MEDS: PANTOPRAZOLE 40 MG VIAL IV SCH (08:11)
[2023-03-18] MEDS: LABETALOL HCL (100MG) 100 MG TABLET PO SCH ×2 (08:17→16:46)
[2023-03-18] MEDS ORDERED: PANTOPRAZOLE 40 MG TABLET.DR PO SCH (09:00)
[2023-03-18] MEDS ORDERED: POTASSIUM CHLORIDE 20 MEQ TAB.PRT.SR PO ONE ×2 (10:30)
[2023-03-18] MEDS ORDERED: POTASSIUM CHLORIDE 10 MEQ TABLET.SA PO ONE (10:30)
[2023-03-18] MEDS ORDERED: MAGNESIUM OXIDE 400 MG TABLET PO ONE (11:00)
[2023-03-18] MEDS: SUCRALFATE 1 G TABLET PO SCH ×3 (12:59→22:14)
[2023-03-18] MEDS: IV NS 0.9% 1,000 ML IV PRN (15:52)
[2023-03-18] MEDS: SIMVASTATIN 10 MG TABLET PO SCH (22:14)
[2023-03-19 07:06] LABS: CALCIUM, SERUM 8.4 mg/dL (8.5-10.1); CREATININE 1.8 mg/dL (0.6-1.3); POTASSIUM 3.4 mmol/L (3.5-5.1)
[2023-03-19] MEDS ORDERED: POTASSIUM CHLORIDE 20 MEQ TAB.PRT.SR PO ONE (09:00)
[2023-03-19] MEDS: FERROUS SULFATE UDC 300 MG/5 ML UDC PO SCH (09:09)
[2023-03-19] MEDS: SENNOSIDES 8.6 MG TABLET PO SCH ×2 (09:09→18:07)
[2023-03-19] MEDS: LABETALOL HCL (100MG) 100 MG TABLET PO SCH ×2 (09:09→18:06)
[2023-03-19] MEDS: LEVETIRACETAM (250 MG) 250 MG TABLET PO SCH ×2 (09:09→18:07)
[2023-03-19] MEDS: PANTOPRAZOLE 40 MG TABLET.DR PO SCH (09:13)
[2023-03-19] MEDS: SUCRALFATE 1 G TABLET PO SCH ×3 (09:13→22:05)
[2023-03-19 16:11] LABS: PTH, INTACT 23 pg/mL (15-65)
[2023-03-19] MEDS: SIMVASTATIN 10 MG TABLET PO SCH (22:05)
[2023-03-20 05:10] LABS: *SPE A/G RATIO 0.6 (0.7-1.7); *SPE ALBUMIN 1.8 g/dL (2.9-4.4); *SPE ALPHA-1-GLOBULIN 0.4 g/dL (0.0-0.4); *SPE ALPHA-2-GLOBULIN 0.8 g/dL (0.4-1.0); *SPE BETA GLOBULIN 0.7 g/dL (0.7-1.3); *SPE GLOBULIN, TOTAL 3.1 g/dL (2.2-3.9); *SPE M-SPIKE Not Observed g/dL (Not Observed); *SPE PROTEIN TOTAL 4.9 g/dL (6.0-8.5); *SPEGAMMA GLOBULIN 1.1 g/dL (0.4-1.8)
[2023-03-20] MEDS: SUCRALFATE 1 G TABLET PO SCH (07:30)
[2023-03-20] MEDS: PANTOPRAZOLE 40 MG TABLET.DR PO SCH (07:30)
[2023-03-20] MEDS: SENNOSIDES 8.6 MG TABLET PO SCH (09:22)
[2023-03-20] MEDS: LEVETIRACETAM (250 MG) 250 MG TABLET PO SCH (09:22)
[2023-03-20] MEDS: FERROUS SULFATE UDC 300 MG/5 ML UDC PO SCH (09:22)
[2023-03-20] MEDS: LABETALOL HCL (100MG) 100 MG TABLET PO SCH (09:25)
[2023-03-20] MEDS ORDERED: AMLODIPINE BESYLATE 2.5 MG TABLET PO SCH (10:30)
[2023-03-20 10:37] VITALS: BP 171/68
== END 2023-03-20 13:23 | DRG 378 ==
LOC: ER 11:53 → TRANSITION 22:45 → TELE1 03-16 07:12 → MEDSG1 03-16 08:08
PROVIDERS: ADMIT Internal Medicine; ATTEND Internal Medicine
PROC: 30233N1 Transfusion of Nonautologous Red Blood Cells into Peripheral Vein, Percutaneous Approach (ICD-10-PCS; principal; 2023-03-15)
PROC: 0DB98ZX Excision of Duodenum, Via Natural or Artificial Opening Endoscopic, Diagnostic (ICD-10-PCS; 2023-03-17)
DX: K29.71 Gastritis, unspecified, with bleeding (principal); E87.1 Hypo-osmolality and hyponatremia; G93.40 Encephalopathy, unspecified; N17.9 Acute kidney failure, unspecified; F03.918 Unspecified dementia, unspecified severity, with other behavioral disturbance; F03.94 Unspecified dementia, unspecified severity, with anxiety; K21.9 Gastro-esophageal reflux disease without esophagitis; E86.9 Volume depletion, unspecified; G40.909 Epilepsy, unspecified, not intractable, without status epilepticus; K31.7 Polyp of stomach and duodenum; I13.10 Hypertensive heart and chronic kidney disease without heart failure, with stage 1 through stage 4 chronic kidney disease, or unspecified chronic kidney disease; N18.9 Chronic kidney disease, unspecified; Z79.82 Long term (current) use of aspirin; Z79.899 Other long term (current) drug therapy; Z86.73 Personal history of transient ischemic attack (TIA), and cerebral infarction without residual deficits; F20.9 Schizophrenia, unspecified; E78.5 Hyperlipidemia, unspecified; F41.9 Anxiety disorder, unspecified; R13.10 Dysphagia, unspecified; D64.9 Anemia, unspecified; E88.9 Metabolic disorder, unspecified
CPT/HCPCS: 36415; 71045-TC; 76770-TC; 80048-TC; 80053-TC; 82550-TC; 83540-TC; 83690-TC; 83735-TC; 83970; 84100-TC; 84155; 84165; 85025-TC; 85610-TC; 86850-TC; 88305-TC; 92526; 92611-TC; A4223; C9113; G0378; J2704; J3490; J7030; J7040; J7042; P9016

== ENCOUNTER 2023-10-09 13:13 | Inpatient (IN) | payer MEDICARE, OTHER ==
[~2023-10-09] VITALS: Ht 157.5 cm; Wt 43.1 kg
[~2023-10-09 13:13] MED LIST changes: -ACET-868 PO; -AMIN30LI2 PO; -AMLO-213 PO; -CEFT1VIA15 IV; -CRAN425C6 PO; -ERGO800011 PO; -FAMO20TA8 PO; +FERR220S2 PO; -FERR325T23 PO; +LEVE500S9 PO; -LEVE500T20 PO; -LISI40TA13 PO; +MAGN400O6 PO; +PANT40SU2 PO; -SENN-18 PO; +SENN-261 PO; -VALB40CA2 PO
[2023-10-09 15:54] LABS: BASOPHILS % (AUTO) 0.2 % (0.0-2.0); EOSINOPHILS # (AUTO) 0.1 K/uL (0.0-0.7); EOSINOPHILS % (AUTO) 0.6 % (0.0-6.0); LYMPHOCYTES # (AUTO) 1.2 K/uL (0.8-4.8); LYMPHOCYTES % (AUTO) 13.9 % (20.0-44.0); MEAN CORPUSCULAR HEMOGLOBIN 31 PG (26.0-33.0); MEAN CORPUSCULAR HGB CONC 34 g/dl (31.0-36.0); MEAN CORPUSCULAR VOLUME 93 fL (82-100); MONOCYTES # (AUTO) 0.5 K/uL (0.1-1.30); MONOCYTES % (AUTO) 5.3 % (2.0-12.0); NEUTROPHILS # (AUTO) 6.9 K/uL (1.8-8.9); PLATELET COUNT (AUTO) 278 K/uL (150-450); RED BLOOD CELL COUNT(AUTO) 2.13 MIL/uL (4.0-5.2); RED CELL DISTRIBUTION WIDTH 13.4 % (11.5-15.0); WHITE BLOOD COUNT (AUTO) 8.7 K/uL (4.3-11.0)
[2023-10-09 15:57] LABS: HEMATOCRIT 20 % (33-45)
[2023-10-09 15:58] LABS: PLATELET ESTIMATE ADEQUATE
[2023-10-09 15:59] LABS: HEMOGLOBIN 6.6 g/dL (11.5-14.8)
[2023-10-09] MEDS ORDERED: CALC1TAB2 PO (16:05)
[2023-10-09] MEDS ORDERED: AMLO-213 PO (16:05)
[2023-10-09] MEDS ORDERED: DOCU100C36 PO (16:05)
[2023-10-09] MEDS ORDERED: FLUO10TA PO (16:05)
[2023-10-09] MEDS ORDERED: ACET325T53 PO (16:05)
[2023-10-09] MEDS ORDERED: FAMO20TA8 PO (16:05)
[2023-10-09 16:09] LABS: ALANINE AMINOTRANSFERASE 24 U/L (12-78); ALBUMIN 2.2 g/dL (3.4-5.0); ALKALINE PHOSPHATASE 73 U/L (46-116); ASPARTATE AMINOTRANSFERASE 11 U/L (15-37); BILIRUBIN,DIRECT 0.1 mg/dL (0.0-0.2); BILIRUBIN,TOTAL 0.4 mg/dL (0.2-1.0); TOTAL PROTEIN, SERUM 7.4 g/dL (6.4-8.2)
[2023-10-09 16:26] LABS: INR 1.02 (0.91-1.10); PARTIAL THROMBOPLASTIN TIME 32.4 SEC (24.3-34.3); PROTHROMBIN TIME 10.5 SECS (9.2-11.1)
[2023-10-09 16:41] LABS: SODIUM SERUM 126 mmol/L (136-145)
[2023-10-09 16:42] LABS: CALCIUM, SERUM 9.6 mg/dL (8.5-10.1); CARBON DIOXIDE 15 mmol/L (21-32); CHLORIDE 99 mmol/L (98-107); GLUCOSE 98 mg/dL (74-106)
[2023-10-09 16:47] LABS: CREATININE 12.5 mg/dL (0.6-1.3); POTASSIUM 9.4 mmol/L (3.5-5.1)
[2023-10-09 17:11] VITALS: O2SAT 99
[2023-10-09] MEDS: ALBUTEROL FS 2.5 MG/3 ML VIAL.NEB NEB ONE (17:11)
[2023-10-09] MEDS: CALCIUM CHLORIDE 1,000 MG/10 ML DISP.SYRIN IV ONE (17:21)
[2023-10-09] MEDS: DEXTROSE 50%-WATER 50 ML DISP.SYRIN IV ONE (17:22)
[2023-10-09 17:25] LABS: BAND % (MANUAL) 1 % (0.0-5.0); LYMPHOCYTES % (MANUAL) 26 % (16-48); MONOCYTES % (MANUAL) 7 % (0-11.0); NEUTROPHILS % (MANUAL) 66 (42-76)
[2023-10-09] MEDS: FUROSEMIDE 40 MG/4 ML VIAL IV ONE (17:25)
[2023-10-09] MEDS: SODIUM BICARBONATE SYR 50 MEQ/50 ML DISP.SYRIN IV ONE (17:25)
[2023-10-09] MEDS: INSULIN REGULAR, HUMAN 100 UNIT/ML 10 ML VIAL IV ONE (17:25)
[2023-10-09] MEDS: IV NS 0.9% 1,000 ML BAG IV ONE (17:25)
[2023-10-09 17:26] VITALS: O2SAT 100
[2023-10-09 20:57] LABS: CALCIUM, SERUM 10.4 mg/dL (8.5-10.1)
[2023-10-09 20:59] LABS: POTASSIUM 8.7 mmol/L (3.5-5.1)
[2023-10-09] MEDS ORDERED: MORPHINE SULFATE INJ 2 MG/ML DISP.SYRIN IV PRN (21:30)
[2023-10-09] MEDS ORDERED: hydrALAZINE HCL IV 20 MG VIAL IV PRN (21:30)
[2023-10-09] MEDS ORDERED: ONDANSETRON HCL/PF 4 MG/2 ML VIAL IVP PRN (21:30)
[2023-10-09] MEDS ORDERED: Z GUARD REMEDY 4 OZ OINT TP PRN (21:30)
[2023-10-10] VITALS (14 sets, daily range): BP systolic 110–148; BP diastolic 54–64; TEMP 97.6–99.3; O2SAT 97–100
[2023-10-10] MEDS: SIMVASTATIN 10 MG TABLET PO SCH (00:30)
[2023-10-10 04:40] LABS: BASOPHILS % (AUTO) 0.2 % (0.0-2.0); EOSINOPHILS % (AUTO) 0.6 % (0.0-6.0); HEMATOCRIT 21 % (33-45); HEMOGLOBIN 7.2 g/dL (11.5-14.8); LYMPHOCYTES # (AUTO) 0.9 K/uL (0.8-4.8); LYMPHOCYTES % (AUTO) 11.1 % (20.0-44.0); MEAN CORPUSCULAR HEMOGLOBIN 31 PG (26.0-33.0); MEAN CORPUSCULAR HGB CONC 35 g/dl (31.0-36.0); MEAN CORPUSCULAR VOLUME 88 fL (82-100); MONOCYTES # (AUTO) 0.4 K/uL (0.1-1.30); MONOCYTES % (AUTO) 4.6 % (2.0-12.0); NEUTROPHILS % (AUTO) 83.5 % (43.0-81.0); PLATELET COUNT (AUTO) 234 K/uL (150-450); RED BLOOD CELL COUNT(AUTO) 2.34 MIL/uL (4.0-5.2); RED CELL DISTRIBUTION WIDTH 14.2 % (11.5-15.0); WHITE BLOOD COUNT (AUTO) 8.4 K/uL (4.3-11.0)
[2023-10-10 05:13] LABS: ALBUMIN 1.8 g/dL (3.4-5.0); BILIRUBIN,TOTAL 0.5 mg/dL (0.2-1.0); CALCIUM, SERUM 9.1 mg/dL (8.5-10.1); MAGNESIUM 2.3 mg/dL (1.8-2.4); POTASSIUM 4.3 mmol/L (3.5-5.1); TOTAL PROTEIN, SERUM 6.4 g/dL (6.4-8.2)
[2023-10-10] MEDS: Fluoxetine 10 mg capsule PO SCH (09:00)
[2023-10-10] MEDS: LABETALOL HCL (100MG) 100 MG TABLET PO SCH (09:00)
[2023-10-10] MEDS: LEVETIRACETAM (250 MG) 250 MG TABLET PO SCH (09:00)
[2023-10-10] MEDS: AMLODIPINE BESYLATE 10 MG TABLET PO SCH (09:00)
[2023-10-10 12:40] LABS: HEMOGLOBIN 7.3 g/dL (11.5-14.8)
[2023-10-10] MEDS: NEPRO 1,000 ML BOTTLE GT PRN (15:18)
[2023-10-10 19:20] LABS: HEMOGLOBIN 7.6 g/dL (11.5-14.8)
[2023-10-11] VITALS: BP 139/58; TEMP 99.3; O2SAT 98
[2023-10-11] MEDS: ACETAMINOPHEN 325 MG TABLET PO PRN (00:59)
[2023-10-11 03:33] LABS: HEMOGLOBIN 7.3 g/dL (11.5-14.8)
[2023-10-11 04:40] VITALS: BP 110/60; TEMP 98.4; O2SAT 97
[2023-10-11 04:41] LABS: BASOPHILS % (AUTO) 0.5 % (0.0-2.0); EOSINOPHILS # (AUTO) 0.1 K/uL (0.0-0.7); EOSINOPHILS % (AUTO) 0.7 % (0.0-6.0); HEMATOCRIT 21 % (33-45); HEMOGLOBIN 7.3 g/dL (11.5-14.8); LYMPHOCYTES # (AUTO) 1.5 K/uL (0.8-4.8); LYMPHOCYTES % (AUTO) 18.1 % (20.0-44.0); MEAN CORPUSCULAR HEMOGLOBIN 31 PG (26.0-33.0); MEAN CORPUSCULAR HGB CONC 34 g/dl (31.0-36.0); MEAN CORPUSCULAR VOLUME 90 fL (82-100); MONOCYTES # (AUTO) 0.5 K/uL (0.1-1.30); MONOCYTES % (AUTO) 6.2 % (2.0-12.0); NEUTROPHILS # (AUTO) 6.2 K/uL (1.8-8.9); NEUTROPHILS % (AUTO) 74.5 % (43.0-81.0); PLATELET COUNT (AUTO) 213 K/uL (150-450); RED BLOOD CELL COUNT(AUTO) 2.38 MIL/uL (4.0-5.2); RED CELL DISTRIBUTION WIDTH 14.9 % (11.5-15.0); WHITE BLOOD COUNT (AUTO) 8.3 K/uL (4.3-11.0)
[2023-10-11 04:47] VITALS: BP 110/60; TEMP 98.4; O2SAT 97
[2023-10-11 05:00] LABS: CREATININE 4.2 mg/dL (0.6-1.3); MAGNESIUM 2.3 mg/dL (1.8-2.4); PHOSPHORUS 3.4 mg/dL (2.5-4.9); POTASSIUM 4.4 mmol/L (3.5-5.1)
[2023-10-11 08:00] VITALS: BP 136/68; TEMP 99.5; O2SAT 95
[2023-10-11 08:08] LABS: HEPATITIS B SURFACE AB Non Reactive (.)
[2023-10-11 11:40] LABS: HEMOGLOBIN 7.1 g/dL (11.5-14.8)
[2023-10-11 19:52] LABS: HEMOGLOBIN 7.1 g/dL (11.5-14.8)
[2023-10-11 20:27] VITALS: BP 119/73; TEMP 102.1; O2SAT 96
[2023-10-12] VITALS (11 sets, daily range): BP systolic 108–118; BP diastolic 49–63; TEMP 96–100.6; O2SAT 95–100
[2023-10-12 06:37] LABS: BASOPHILS % (AUTO) 0.2 % (0.0-2.0); EOSINOPHILS % (AUTO) 0.3 % (0.0-6.0); HEMATOCRIT 21 % (33-45); LYMPHOCYTES # (AUTO) 1.7 K/uL (0.8-4.8); LYMPHOCYTES % (AUTO) 14.9 % (20.0-44.0); MEAN CORPUSCULAR HEMOGLOBIN 31 PG (26.0-33.0); MEAN CORPUSCULAR HGB CONC 33 g/dl (31.0-36.0); MEAN CORPUSCULAR VOLUME 91 fL (82-100); MONOCYTES # (AUTO) 0.7 K/uL (0.1-1.30); MONOCYTES % (AUTO) 6.5 % (2.0-12.0); NEUTROPHILS # (AUTO) 8.7 K/uL (1.8-8.9); NEUTROPHILS % (AUTO) 78.1 % (43.0-81.0); PLATELET COUNT (AUTO) 159 K/uL (150-450); RED BLOOD CELL COUNT(AUTO) 2.28 MIL/uL (4.0-5.2); RED CELL DISTRIBUTION WIDTH 14.8 % (11.5-15.0); WHITE BLOOD COUNT (AUTO) 11.2 K/uL (4.3-11.0)
[2023-10-12 06:39] LABS: CALCIUM, SERUM 8.4 mg/dL (8.5-10.1); CREATININE 3.5 mg/dL (0.6-1.3); MAGNESIUM 2.2 mg/dL (1.8-2.4); PHOSPHORUS 2.1 mg/dL (2.5-4.9); POTASSIUM 3.9 mmol/L (3.5-5.1)
[2023-10-12] MEDS: NEUTRA PHOS 1 POWD.PACKET PO ONE ×2 (08:30→13:00)
[2023-10-13 07:49] LABS: BASOPHILS % (AUTO) 0.1 % (0.0-2.0); EOSINOPHILS # (AUTO) 0.1 K/uL (0.0-0.7); EOSINOPHILS % (AUTO) 0.7 % (0.0-6.0); HEMATOCRIT 23 % (33-45); HEMOGLOBIN 7.5 g/dL (11.5-14.8); LYMPHOCYTES # (AUTO) 1.3 K/uL (0.8-4.8); LYMPHOCYTES % (AUTO) 13.2 % (20.0-44.0); MEAN CORPUSCULAR HEMOGLOBIN 30 PG (26.0-33.0); MEAN CORPUSCULAR HGB CONC 33 g/dl (31.0-36.0); MEAN CORPUSCULAR VOLUME 91 fL (82-100); MONOCYTES # (AUTO) 0.8 K/uL (0.1-1.30); MONOCYTES % (AUTO) 7.9 % (2.0-12.0); NEUTROPHILS # (AUTO) 7.9 K/uL (1.8-8.9); NEUTROPHILS % (AUTO) 78.1 % (43.0-81.0); PLATELET COUNT (AUTO) 156 K/uL (150-450); RED BLOOD CELL COUNT(AUTO) 2.48 MIL/uL (4.0-5.2); RED CELL DISTRIBUTION WIDTH 16.7 % (11.5-15.0); WHITE BLOOD COUNT (AUTO) 10.1 K/uL (4.3-11.0)
[2023-10-13 08:00] VITALS: BP 108/41; TEMP 99.2; O2SAT 95
[2023-10-13 08:20] LABS: CREATININE 5.5 mg/dL (0.6-1.3); MAGNESIUM 2.3 mg/dL (1.8-2.4); PHOSPHORUS 2.8 mg/dL (2.5-4.9); POTASSIUM 3.9 mmol/L (3.5-5.1)
[2023-10-13 12:17] LABS: OCCULT BLOOD STOOL NEGATIVE (NEGATIVE)
[2023-10-13 16:00] VITALS: BP 121/57; TEMP 98.9; O2SAT 99
[2023-10-13 20:00] VITALS: BP 110/49; TEMP 99.7; O2SAT 95
[2023-10-13 23:29] VITALS: TEMP 98.9
[2023-10-14] MEDS ORDERED: ANESTHESIA TRAY IN PYXIS 1 EA TRAY MC ONE (08:38)
[2023-10-14 09:00] VITALS: BP 125/54; TEMP 99.1; O2SAT 96
[2023-10-14 11:41] LABS: BASOPHILS % (AUTO) 0.3 % (0.0-2.0); EOSINOPHILS # (AUTO) 0.1 K/uL (0.0-0.7); EOSINOPHILS % (AUTO) 0.7 % (0.0-6.0); HEMATOCRIT 22 % (33-45); HEMOGLOBIN 7.3 g/dL (11.5-14.8); LYMPHOCYTES # (AUTO) 1.2 K/uL (0.8-4.8); LYMPHOCYTES % (AUTO) 15.7 % (20.0-44.0); MEAN CORPUSCULAR HEMOGLOBIN 30 PG (26.0-33.0); MEAN CORPUSCULAR HGB CONC 34 g/dl (31.0-36.0); MEAN CORPUSCULAR VOLUME 89 fL (82-100); MONOCYTES # (AUTO) 0.7 K/uL (0.1-1.30); MONOCYTES % (AUTO) 8.7 % (2.0-12.0); NEUTROPHILS # (AUTO) 5.7 K/uL (1.8-8.9); NEUTROPHILS % (AUTO) 74.6 % (43.0-81.0); PLATELET COUNT (AUTO) 162 K/uL (150-450); RED BLOOD CELL COUNT(AUTO) 2.45 MIL/uL (4.0-5.2); RED CELL DISTRIBUTION WIDTH 15.5 % (11.5-15.0); WHITE BLOOD COUNT (AUTO) 7.7 K/uL (4.3-11.0)
[2023-10-14 11:58] LABS: CALCIUM, SERUM 8.7 mg/dL (8.5-10.1); CREATININE 4.2 mg/dL (0.6-1.3); MAGNESIUM 2.1 mg/dL (1.8-2.4); PHOSPHORUS 2.4 mg/dL (2.5-4.9); POTASSIUM 3.5 mmol/L (3.5-5.1)
[2023-10-14] MEDS: PANTOPRAZOLE 40 MG VIAL IV SCH (12:20)
[2023-10-14 16:25] VITALS: BP 128/58; TEMP 98.2; O2SAT 96
[2023-10-14 20:00] VITALS: BP 147/73; TEMP 101.3; O2SAT 95
[2023-10-15 07:29] LABS: BASOPHILS % (AUTO) 0.3 % (0.0-2.0); EOSINOPHILS # (AUTO) 0.1 K/uL (0.0-0.7); EOSINOPHILS % (AUTO) 1.2 % (0.0-6.0); HEMATOCRIT 25 % (33-45); HEMOGLOBIN 8.3 g/dL (11.5-14.8); LYMPHOCYTES # (AUTO) 1.6 K/uL (0.8-4.8); LYMPHOCYTES % (AUTO) 18.3 % (20.0-44.0); MEAN CORPUSCULAR HEMOGLOBIN 30 PG (26.0-33.0); MEAN CORPUSCULAR HGB CONC 34 g/dl (31.0-36.0); MEAN CORPUSCULAR VOLUME 90 fL (82-100); MONOCYTES # (AUTO) 0.9 K/uL (0.1-1.30); MONOCYTES % (AUTO) 10.2 % (2.0-12.0); NEUTROPHILS # (AUTO) 6.2 K/uL (1.8-8.9); PLATELET COUNT (AUTO) 186 K/uL (150-450); RED BLOOD CELL COUNT(AUTO) 2.74 MIL/uL (4.0-5.2); RED CELL DISTRIBUTION WIDTH 15.6 % (11.5-15.0); WHITE BLOOD COUNT (AUTO) 8.8 K/uL (4.3-11.0)
[2023-10-15 07:30] VITALS: BP 158/75; TEMP 100; O2SAT 94
[2023-10-15 07:31] LABS: CALCIUM, SERUM 9.2 mg/dL (8.5-10.1); CREATININE 5.7 mg/dL (0.6-1.3); MAGNESIUM 2.4 mg/dL (1.8-2.4); PHOSPHORUS 2.7 mg/dL (2.5-4.9); POTASSIUM 4.1 mmol/L (3.5-5.1)
[2023-10-15 08:04] LABS: IRON, SERUM 16 ug/dl (50-175); TOTAL IRON BINDING CAPACITY 111 ug/dl (250-450)
[2023-10-15 11:10] LABS: FERRITIN 2128 ng/mL (8-388)
[2023-10-15 16:00] VITALS: BP 144/69; TEMP 98.2; O2SAT 96
[2023-10-15] MEDS ORDERED: NEPRO 1,000 ML BOTTLE GT PRN (18:00)
[2023-10-15 20:00] VITALS: BP 134/68; TEMP 98.6; O2SAT 96
[2023-10-16 01:10] LABS: HEPATITIS B CORE AB, IgM Negative (Negative); HEPATITIS B CORE AB, TOTAL Negative (Negative); HEPATITIS B SURFACE AB Non Reactive (.)
[2023-10-16 07:00] VITALS: BP 133/78; TEMP 99.2; O2SAT 94
[2023-10-16 07:07] LABS: BASOPHILS % (AUTO) 0.6 % (0.0-2.0); EOSINOPHILS # (AUTO) 0.1 K/uL (0.0-0.7); EOSINOPHILS % (AUTO) 1.3 % (0.0-6.0); HEMATOCRIT 22 % (33-45); HEMOGLOBIN 7.4 g/dL (11.5-14.8); LYMPHOCYTES # (AUTO) 1.2 K/uL (0.8-4.8); LYMPHOCYTES % (AUTO) 18.4 % (20.0-44.0); MEAN CORPUSCULAR HEMOGLOBIN 30 PG (26.0-33.0); MEAN CORPUSCULAR HGB CONC 34 g/dl (31.0-36.0); MEAN CORPUSCULAR VOLUME 88 fL (82-100); MONOCYTES # (AUTO) 0.8 K/uL (0.1-1.30); MONOCYTES % (AUTO) 11.9 % (2.0-12.0); NEUTROPHILS # (AUTO) 4.5 K/uL (1.8-8.9); NEUTROPHILS % (AUTO) 67.8 % (43.0-81.0); PLATELET COUNT (AUTO) 208 K/uL (150-450); RED BLOOD CELL COUNT(AUTO) 2.51 MIL/uL (4.0-5.2); RED CELL DISTRIBUTION WIDTH 15.2 % (11.5-15.0); WHITE BLOOD COUNT (AUTO) 6.6 K/uL (4.3-11.0)
[2023-10-16 07:17] LABS: CALCIUM, SERUM 9.1 mg/dL (8.5-10.1); CREATININE 4.2 mg/dL (0.6-1.3); MAGNESIUM 2.2 mg/dL (1.8-2.4); PHOSPHORUS 1.9 mg/dL (2.5-4.9); POTASSIUM 3.3 mmol/L (3.5-5.1)
[2023-10-16] MEDS: PANTOPRAZOLE 40 MG/PACK PACK NG SCH (09:15)
[2023-10-16] MEDS: POTASSIUM CHLORIDE 20 MEQ POWDER PACKET GT ONE (09:44)
[2023-10-16 16:00] VITALS: BP 130/62; TEMP 98.9; O2SAT 94
[2023-10-16] MEDS ORDERED: ANESTHESIA TRAY IN PYXIS 1 EA TRAY MC ONE (16:33)
[2023-10-16 16:52] LABS: CALCIUM, SERUM 8.7 mg/dL (8.5-10.1); POTASSIUM 4.1 mmol/L (3.5-5.1)
[2023-10-16 20:00] VITALS: BP 136/79; TEMP 98.2; O2SAT 96
[2023-10-17 08:00] VITALS: BP 132/110; TEMP 97.7; O2SAT 96
[2023-10-17 12:02] LABS: INR 1.08 (0.91-1.10); PARTIAL THROMBOPLASTIN TIME 29.8 SEC (24.3-34.3); PROTHROMBIN TIME 11.4 SECS (9.2-11.1)
[2023-10-17 16:00] VITALS: BP 113/58; TEMP 98.4; O2SAT 95
[2023-10-17] MEDS ORDERED: ACETAMINOPHEN 650 MG/20.3 ML UDC GT PRN (18:00)
[2023-10-17 20:00] VITALS: BP 135/58; TEMP 98.6; O2SAT 95
[2023-10-17] MEDS: SIMVASTATIN 10 MG TABLET GT SCH (21:19)
[2023-10-18] VITALS (10 sets, daily range): BP systolic 90–125; BP diastolic 50–76; TEMP 98–98.8; O2SAT 94–97
[2023-10-18] MEDS: ALTEPLASE CATHFLO 2 MG/VIAL XX ONE (01:37)
[2023-10-18] MEDS: AMLODIPINE BESYLATE 10 MG TABLET GT SCH (08:24)
[2023-10-18] MEDS: LABETALOL HCL (100MG) 100 MG TABLET GT SCH (08:24)
[2023-10-18] MEDS: PANTOPRAZOLE 40 MG/PACK PACK GT SCH (08:25)
[2023-10-18] MEDS: LEVETIRACETAM SOL (5 ML) 100 MG/ML UDC GT SCH (08:25)
[2023-10-18 12:41] LABS: CALCIUM, SERUM 9.3 mg/dL (8.5-10.1); CARBON DIOXIDE 28 mmol/L (21-32); CHLORIDE 100 mmol/L (98-107); CREATININE 6.7 mg/dL (0.6-1.3); GLUCOSE 132 mg/dL (74-106); POTASSIUM 4.3 mmol/L (3.5-5.1); SODIUM SERUM 140 mmol/L (136-145); UREA NITROGEN, BLOOD 72 mg/dL (7-18)
[2023-10-18 13:14] LABS: BASOPHILS % (AUTO) 0.5 % (0.0-2.0); EOSINOPHILS # (AUTO) 0.1 K/uL (0.0-0.7); EOSINOPHILS % (AUTO) 1.3 % (0.0-6.0); HEMATOCRIT 21 % (33-45); LYMPHOCYTES # (AUTO) 1.6 K/uL (0.8-4.8); LYMPHOCYTES % (AUTO) 20.5 % (20.0-44.0); MEAN CORPUSCULAR HEMOGLOBIN 30 PG (26.0-33.0); MEAN CORPUSCULAR HGB CONC 34 g/dl (31.0-36.0); MEAN CORPUSCULAR VOLUME 88 fL (82-100); MONOCYTES # (AUTO) 0.8 K/uL (0.1-1.30); MONOCYTES % (AUTO) 9.6 % (2.0-12.0); NEUTROPHILS # (AUTO) 5.4 K/uL (1.8-8.9); NEUTROPHILS % (AUTO) 68.1 % (43.0-81.0); PLATELET COUNT (AUTO) 260 K/uL (150-450); RED BLOOD CELL COUNT(AUTO) 2.32 MIL/uL (4.0-5.2); RED CELL DISTRIBUTION WIDTH 15.1 % (11.5-15.0)
[2023-10-18 13:36] LABS: HEMOGLOBIN 6.9 g/dL (11.5-14.8)
[2023-10-18 16:17] LABS: ANISOCYTOSIS 1+; BAND % (MANUAL) 1 % (0.0-5.0); EOSINOPHILS % (MANUAL) 2 % (0-4); LYMPHOCYTES % (MANUAL) 25 % (16-48); MONOCYTES % (MANUAL) 3 % (0-11.0); NEUTROPHILS % (MANUAL) 69 (42-76); PLATELET ESTIMATE ADEQUATE
[2023-10-18 16:18] LABS: ROULEAUX 1+
[2023-10-18] MEDS: NEPRO 1,000 ML BOTTLE GT PRN (21:28)
[2023-10-19 07:29] LABS: BASOPHILS % (AUTO) 0.4 % (0.0-2.0); EOSINOPHILS # (AUTO) 0.2 K/uL (0.0-0.7); EOSINOPHILS % (AUTO) 2.5 % (0.0-6.0); HEMATOCRIT 25 % (33-45); HEMOGLOBIN 8.4 g/dL (11.5-14.8); LYMPHOCYTES # (AUTO) 1.7 K/uL (0.8-4.8); LYMPHOCYTES % (AUTO) 21.9 % (20.0-44.0); MEAN CORPUSCULAR HEMOGLOBIN 30 PG (26.0-33.0); MEAN CORPUSCULAR HGB CONC 34 g/dl (31.0-36.0); MEAN CORPUSCULAR VOLUME 88 fL (82-100); MONOCYTES # (AUTO) 0.7 K/uL (0.1-1.30); MONOCYTES % (AUTO) 8.6 % (2.0-12.0); NEUTROPHILS # (AUTO) 5.2 K/uL (1.8-8.9); NEUTROPHILS % (AUTO) 66.6 % (43.0-81.0); PLATELET COUNT (AUTO) 305 K/uL (150-450); RED BLOOD CELL COUNT(AUTO) 2.78 MIL/uL (4.0-5.2); RED CELL DISTRIBUTION WIDTH 14.8 % (11.5-15.0); WHITE BLOOD COUNT (AUTO) 7.8 K/uL (4.3-11.0)
[2023-10-19 07:30] VITALS: BP 133/78; TEMP 97.9; O2SAT 97
[2023-10-19] MEDS ORDERED: FENTANYL PF 250MCG/5ML AMPUL IV PRN (11:00)
[2023-10-19] MEDS ORDERED: NALOXONE PREFILLED SYRINGE 2 MG/2 ML SYRINGE IV PRN (11:00)
[2023-10-19] MEDS ORDERED: FLUMAZENIL 0.5 MG VIAL IV PRN (11:00)
[2023-10-19] MEDS ORDERED: MIDAZOLAM HCL 2 MG/2ML VIAL IV PRN (11:00)
[2023-10-19 16:00] VITALS: BP 115/65; TEMP 100.4; O2SAT 95
[2023-10-19 20:00] VITALS: BP 103/53; TEMP 98.4; O2SAT 96
[2023-10-19 21:51] LABS: BASOPHILS % (AUTO) 0.4 % (0.0-2.0); EOSINOPHILS # (AUTO) 0.1 K/uL (0.0-0.7); EOSINOPHILS % (AUTO) 0.7 % (0.0-6.0); HEMATOCRIT 23 % (33-45); HEMOGLOBIN 7.7 g/dL (11.5-14.8); LYMPHOCYTES # (AUTO) 1.2 K/uL (0.8-4.8); LYMPHOCYTES % (AUTO) 11.9 % (20.0-44.0); MEAN CORPUSCULAR HEMOGLOBIN 30 PG (26.0-33.0); MEAN CORPUSCULAR HGB CONC 34 g/dl (31.0-36.0); MEAN CORPUSCULAR VOLUME 90 fL (82-100); MONOCYTES # (AUTO) 0.6 K/uL (0.1-1.30); MONOCYTES % (AUTO) 5.8 % (2.0-12.0); NEUTROPHILS # (AUTO) 8.1 K/uL (1.8-8.9); NEUTROPHILS % (AUTO) 81.2 % (43.0-81.0); PLATELET COUNT (AUTO) 247 K/uL (150-450); RED BLOOD CELL COUNT(AUTO) 2.52 MIL/uL (4.0-5.2); WHITE BLOOD COUNT (AUTO) 9.9 K/uL (4.3-11.0)
[2023-10-20 08:00] VITALS: BP 133/81; TEMP 98.1; O2SAT 96
[2023-10-20 10:40] LABS: BASOPHILS % (AUTO) 0.4 % (0.0-2.0); EOSINOPHILS # (AUTO) 0.1 K/uL (0.0-0.7); EOSINOPHILS % (AUTO) 1.8 % (0.0-6.0); HEMATOCRIT 23 % (33-45); HEMOGLOBIN 7.6 g/dL (11.5-14.8); LYMPHOCYTES # (AUTO) 1.5 K/uL (0.8-4.8); LYMPHOCYTES % (AUTO) 20.8 % (20.0-44.0); MEAN CORPUSCULAR HEMOGLOBIN 30 PG (26.0-33.0); MEAN CORPUSCULAR HGB CONC 34 g/dl (31.0-36.0); MEAN CORPUSCULAR VOLUME 89 fL (82-100); MONOCYTES # (AUTO) 0.6 K/uL (0.1-1.30); MONOCYTES % (AUTO) 7.6 % (2.0-12.0); NEUTROPHILS # (AUTO) 5.2 K/uL (1.8-8.9); NEUTROPHILS % (AUTO) 69.4 % (43.0-81.0); PLATELET COUNT (AUTO) 226 K/uL (150-450); RED BLOOD CELL COUNT(AUTO) 2.52 MIL/uL (4.0-5.2); RED CELL DISTRIBUTION WIDTH 14.8 % (11.5-15.0); WHITE BLOOD COUNT (AUTO) 7.4 K/uL (4.3-11.0)
[2023-10-20 11:00] LABS: CALCIUM, SERUM 8.8 mg/dL (8.5-10.1); CREATININE 6.9 mg/dL (0.6-1.3); MAGNESIUM 2.6 mg/dL (1.8-2.4); PHOSPHORUS 2.6 mg/dL (2.5-4.9); POTASSIUM 4.4 mmol/L (3.5-5.1)
[2023-10-20 16:20] VITALS: BP 107/56; TEMP 98.2; O2SAT 98
[2023-10-20 20:00] VITALS: BP 99/58; TEMP 97.3; O2SAT 97
[2023-10-21 07:30] VITALS: BP 108/61; TEMP 98.4; O2SAT 95
[2023-10-21 07:43] LABS: BASOPHILS % (AUTO) 0.5 % (0.0-2.0); EOSINOPHILS # (AUTO) 0.1 K/uL (0.0-0.7); EOSINOPHILS % (AUTO) 1.7 % (0.0-6.0); LYMPHOCYTES % (AUTO) 25.2 % (20.0-44.0); MEAN CORPUSCULAR HEMOGLOBIN 30 PG (26.0-33.0); MEAN CORPUSCULAR HGB CONC 33 g/dl (31.0-36.0); MEAN CORPUSCULAR VOLUME 90 fL (82-100); MONOCYTES # (AUTO) 0.7 K/uL (0.1-1.30); MONOCYTES % (AUTO) 8.8 % (2.0-12.0); NEUTROPHILS % (AUTO) 63.8 % (43.0-81.0); PLATELET COUNT (AUTO) 255 K/uL (150-450); RED BLOOD CELL COUNT(AUTO) 2.21 MIL/uL (4.0-5.2); RED CELL DISTRIBUTION WIDTH 14.8 % (11.5-15.0); WHITE BLOOD COUNT (AUTO) 7.9 K/uL (4.3-11.0)
[2023-10-21 07:46] LABS: HEMATOCRIT 20 % (33-45); HEMOGLOBIN 6.6 g/dL (11.5-14.8)
[2023-10-21 07:49] LABS: ALBUMIN 1.5 g/dL (3.4-5.0); BILIRUBIN,TOTAL 0.4 mg/dL (0.2-1.0); MAGNESIUM 2.6 mg/dL (1.8-2.4); PHOSPHORUS 2.8 mg/dL (2.5-4.9); POTASSIUM 4.4 mmol/L (3.5-5.1); TOTAL PROTEIN, SERUM 6.2 g/dL (6.4-8.2)
[2023-10-21 07:50] LABS: CREATININE 8.1 mg/dL (0.6-1.3)
[2023-10-21 10:55] LABS: ANISOCYTOSIS 1+; BASOPHILS % (MANUAL) 0 % (0.0-2.0); EOSINOPHILS % (MANUAL) 3 % (0-4); LYMPHOCYTES % (MANUAL) 22 % (16-48); MONOCYTES % (MANUAL) 7 % (0-11.0); NEUTROPHILS % (MANUAL) 68 (42-76); PLATELET ESTIMATE ADEQUATE
[2023-10-21 14:15] VITALS: BP 110/60; TEMP 98.4
[2023-10-21 14:30] VITALS: BP 91/59; TEMP 98.2
[2023-10-21 15:00] VITALS: BP 99/73; TEMP 98.1
[2023-10-21 16:00] VITALS: BP_SYST 103; BP_DIAS 55; BP_DIAS 56; TEMP 98.2; O2SAT 97
[2023-10-21 19:06] LABS: HEMOGLOBIN 7.7 g/dL (11.5-14.8)
[2023-10-22 07:30] VITALS: BP 118/75; TEMP 98.4; O2SAT 98
[2023-10-22 16:00] VITALS: BP 116/66; TEMP 97.9; O2SAT 97
[2023-10-22 20:00] VITALS: BP 103/68; TEMP 98.2; O2SAT 97
[2023-10-23 16:00] VITALS: BP 108/73; TEMP 97.8; O2SAT 96
[2023-10-23 20:20] VITALS: BP 121/60; TEMP 97.5; O2SAT 96
[2023-10-24] VITALS (7 sets, daily range): BP systolic 113–162; BP diastolic 36–76; TEMP 97.5–98.6; O2SAT 94–98
[2023-10-24 06:32] LABS: BASOPHILS # (AUTO) 0.1 K/uL (0.0-0.2); EOSINOPHILS # (AUTO) 0.1 K/uL (0.0-0.7); EOSINOPHILS % (AUTO) 1.9 % (0.0-6.0); HEMATOCRIT 24 % (33-45); HEMOGLOBIN 8.2 g/dL (11.5-14.8); LYMPHOCYTES # (AUTO) 2.3 K/uL (0.8-4.8); LYMPHOCYTES % (AUTO) 32.5 % (20.0-44.0); MEAN CORPUSCULAR HEMOGLOBIN 30 PG (26.0-33.0); MEAN CORPUSCULAR HGB CONC 34 g/dl (31.0-36.0); MEAN CORPUSCULAR VOLUME 88 fL (82-100); MONOCYTES # (AUTO) 0.5 K/uL (0.1-1.30); MONOCYTES % (AUTO) 6.6 % (2.0-12.0); NEUTROPHILS # (AUTO) 4.2 K/uL (1.8-8.9); PLATELET COUNT (AUTO) 383 K/uL (150-450); RED BLOOD CELL COUNT(AUTO) 2.73 MIL/uL (4.0-5.2); RED CELL DISTRIBUTION WIDTH 14.6 % (11.5-15.0); WHITE BLOOD COUNT (AUTO) 7.2 K/uL (4.3-11.0)
[2023-10-24 07:05] LABS: CALCIUM, SERUM 8.7 mg/dL (8.5-10.1); POTASSIUM 4.7 mmol/L (3.5-5.1)
[2023-10-24] MEDS ORDERED: IOHEXOL 240MG/ML 0 ML IV ONE (08:13)
[2023-10-24] MEDS ORDERED: HEPARIN SODIUM, PORCINE 1,000 UNIT/ML VIAL ONE (08:14)
[2023-10-24] MEDS ORDERED: LIDOCAINE 1% INJ 50 ML MDV IJ ONE (08:14)
[2023-10-24] MEDS ORDERED: ANESTHESIA TRAY IN PYXIS 1 EA TRAY MC ONE (14:01)
[2023-10-25 06:47] LABS: BASOPHILS # (AUTO) 0.1 K/uL (0.0-0.2); BASOPHILS % (AUTO) 0.8 % (0.0-2.0); EOSINOPHILS # (AUTO) 0.1 K/uL (0.0-0.7); HEMATOCRIT 26 % (33-45); HEMOGLOBIN 8.9 g/dL (11.5-14.8); LYMPHOCYTES % (AUTO) 28.2 % (20.0-44.0); MEAN CORPUSCULAR HEMOGLOBIN 30 PG (26.0-33.0); MEAN CORPUSCULAR HGB CONC 34 g/dl (31.0-36.0); MEAN CORPUSCULAR VOLUME 89 fL (82-100); MONOCYTES # (AUTO) 0.5 K/uL (0.1-1.30); MONOCYTES % (AUTO) 6.8 % (2.0-12.0); NEUTROPHILS # (AUTO) 4.3 K/uL (1.8-8.9); NEUTROPHILS % (AUTO) 62.2 % (43.0-81.0); PLATELET COUNT (AUTO) 384 K/uL (150-450); RED BLOOD CELL COUNT(AUTO) 2.98 MIL/uL (4.0-5.2); RED CELL DISTRIBUTION WIDTH 14.5 % (11.5-15.0)
[2023-10-25 07:27] LABS: CALCIUM, SERUM 8.7 mg/dL (8.5-10.1); CREATININE 7.2 mg/dL (0.6-1.3); POTASSIUM 4.3 mmol/L (3.5-5.1)
[2023-10-25 08:00] VITALS: BP 154/82; TEMP 97.9; O2SAT 97
[2023-10-25 16:00] VITALS: BP 161/62; TEMP 98.2; O2SAT 96
[2023-10-25 16:37] VITALS: BP 161/62
[2023-10-25] MEDS ORDERED: LEVE100S GT (17:12)
== END 2023-10-25 19:00 | DRG 673 ==
LOC: ER 13:17 → ICU 22:03 → TELE 10-10 11:44 → MED 10-11 08:45
PROVIDERS: ADMIT Internal Medicine; ATTEND Internal Medicine
PROC: 05HB33Z Insertion of Infusion Device into Right Basilic Vein, Percutaneous Approach (ICD-10-PCS; principal; 2023-10-09)
PROC: 02HV33Z Insertion of Infusion Device into Superior Vena Cava, Percutaneous Approach (ICD-10-PCS; 2023-10-09)
PROC: B548ZZA Ultrasonography of Superior Vena Cava, Guidance (ICD-10-PCS; 2023-10-09)
PROC: 5A1D70Z Performance of Urinary Filtration, Intermittent, Less than 6 Hours Per Day (ICD-10-PCS; 2023-10-09)
PROC: 302A3N1 Transfusion of Nonautologous Red Blood Cells into Bone Marrow, Percutaneous Approach (ICD-10-PCS; 2023-10-09)
PROC: 0DH63UZ Insertion of Feeding Device into Stomach, Percutaneous Approach (ICD-10-PCS; 2023-10-16)
PROC: 0JH63XZ Insertion of Tunneled Vascular Access Device into Chest Subcutaneous Tissue and Fascia, Percutaneous Approach (ICD-10-PCS; 2023-10-24)
PROC: 05HN33Z Insertion of Infusion Device into Left Internal Jugular Vein, Percutaneous Approach (ICD-10-PCS; 2023-10-24)
PROC: B514YZA Fluoroscopy of Left Jugular Veins using Other Contrast, Guidance (ICD-10-PCS; 2023-10-24)
DX: N17.9 Acute kidney failure, unspecified (principal); E43 Unspecified severe protein-calorie malnutrition; E87.1 Hypo-osmolality and hyponatremia; E87.20 Acidosis, unspecified; G93.49 Other encephalopathy; N13.2 Hydronephrosis with renal and ureteral calculous obstruction; E86.0 Dehydration; D64.9 Anemia, unspecified; E87.5 Hyperkalemia; K29.70 Gastritis, unspecified, without bleeding; Z86.73 Personal history of transient ischemic attack (TIA), and cerebral infarction without residual deficits; F03.90 Unspecified dementia, unspecified severity, without behavioral disturbance, psychotic disturbance, mood disturbance, and anxiety; R56.9 Unspecified convulsions; F20.9 Schizophrenia, unspecified; E78.5 Hyperlipidemia, unspecified; E88.09 Other disorders of plasma-protein metabolism, not elsewhere classified; R62.7 Adult failure to thrive; D63.8 Anemia in other chronic diseases classified elsewhere; R13.10 Dysphagia, unspecified; Z79.899 Other long term (current) drug therapy; Z93.6 Other artificial openings of urinary tract status; Z99.2 Dependence on renal dialysis; I12.9 Hypertensive chronic kidney disease with stage 1 through stage 4 chronic kidney disease, or unspecified chronic kidney disease; N18.9 Chronic kidney disease, unspecified; N13.9 Obstructive and reflux uropathy, unspecified; Z93.1 Gastrostomy status; Z74.09 Other reduced mobility
CPT/HCPCS: 36415; 43246; 71045-TC; 74018; 76770-TC; 80048-TC; 80053-TC; 80076-TC; 82272-TC; 82607-TC; 82728-TC; 82962-TC; 83540-TC; 83735-TC; 84100-TC; 84484-TC; 85025-TC; 85027-TC; 85045-TC; 85610-TC; 85730-TC; 86704; 86705; 86706; 86803; 86850-TC; 87081-TC; 87340; 90935-TC; A4223; A6403; C1750; C1757; C1769; C1894; G0378; J0690; J1644; J1815; J1940; J1953; J2470; J2704; J2997; J3490; J7030; J7040; J7050; P9016; Q9966

== ENCOUNTER 2023-11-17 09:26 | Emergency (ER) | payer MEDICARE, OTHER ==
[~2023-11-17] VITALS: Ht 152.4 cm; Wt 43.1 kg
[~2023-11-17 09:26] MED LIST changes: +ACET325T53 PO; +AMLO-213 PO; -ASPI-1169 PO; +CALC1TAB2 PO; +DOCU100C36 PO; +FAMO20TA8 PO; -FERR220S2 PO; +FLUO10TA PO; +LEVE100S GT; -MAGN400O6 PO; -PANT40SU2 PO
[2023-11-17 11:04] LABS: BILIRUBIN,TOTAL 0.5 mg/dL (0.2-1.0); CALCIUM, SERUM 8.6 mg/dL (8.5-10.1); CREATININE 2.7 mg/dL (0.6-1.3); POTASSIUM 3.1 mmol/L (3.5-5.1); TOTAL PROTEIN, SERUM 7.8 g/dL (6.4-8.2)
[2023-11-17 11:53] LABS: BASOPHILS # (AUTO) 0.1 K/uL (0.0-0.2); BASOPHILS % (AUTO) 0.4 % (0.0-2.0); EOSINOPHILS # (AUTO) 0.1 K/uL (0.0-0.7); EOSINOPHILS % (AUTO) 0.4 % (0.0-6.0); HEMATOCRIT 22 % (33-45); LYMPHOCYTES # (AUTO) 1.9 K/uL (0.8-4.8); LYMPHOCYTES % (AUTO) 15.6 % (20.0-44.0); MEAN CORPUSCULAR HEMOGLOBIN 30 PG (26.0-33.0); MEAN CORPUSCULAR HGB CONC 32 g/dl (31.0-36.0); MEAN CORPUSCULAR VOLUME 93 fL (82-100); MONOCYTES # (AUTO) 0.8 K/uL (0.1-1.30); MONOCYTES % (AUTO) 6.3 % (2.0-12.0); NEUTROPHILS # (AUTO) 9.5 K/uL (1.8-8.9); NEUTROPHILS % (AUTO) 77.3 % (43.0-81.0); PLATELET COUNT (AUTO) 363 K/uL (150-450); RED BLOOD CELL COUNT(AUTO) 2.31 MIL/uL (4.0-5.2); RED CELL DISTRIBUTION WIDTH 17.9 % (11.5-15.0); WHITE BLOOD COUNT (AUTO) 12.3 K/uL (4.3-11.0)
[2023-11-17 11:55] LABS: HEMOGLOBIN 6.9 g/dL (11.5-14.8)
[2023-11-17 12:13] LABS: ANISOCYTOSIS 1+; LYMPHOCYTES % (MANUAL) 15 % (16-48); MONOCYTES % (MANUAL) 7 % (0-11.0); NEUTROPHILS % (MANUAL) 78 (42-76); PLATELET ESTIMATE ADEQUATE
[2023-11-17 18:00] VITALS: BP 106/60; TEMP 98; O2SAT 96
== END 2023-11-17 19:40 ==
LOC: ER 09:27
DX: D64.89 Other specified anemias (principal); G40.909 Epilepsy, unspecified, not intractable, without status epilepticus; F03.90 Unspecified dementia, unspecified severity, without behavioral disturbance, psychotic disturbance, mood disturbance, and anxiety; I12.0 Hypertensive chronic kidney disease with stage 5 chronic kidney disease or end stage renal disease; N18.6 End stage renal disease; K21.9 Gastro-esophageal reflux disease without esophagitis; Z86.73 Personal history of transient ischemic attack (TIA), and cerebral infarction without residual deficits; Z99.2 Dependence on renal dialysis
CPT/HCPCS: 99285; 36430; 85025; 85007; 36415; 80053; 86850; 83880; 86923; J7040; P9016

== ENCOUNTER 2024-02-08 13:42 | Inpatient (IN) | payer MEDICARE, OTHER ==
[~2024-02-08] VITALS: Ht 170.2 cm; Wt 48.1 kg
[~2024-02-08 13:42] MED LIST changes: +ACET325T53 GT; -ACET325T53 PO; +AMLO-213 GT; -AMLO-213 PO; +CLIN300C12 GT; +FLUO10TA GT; -FLUO10TA PO; +SIMV10TA98 GT; -SIMV10TA98 PO
[2024-02-08 14:57] LABS: BASOPHILS # (AUTO) 0.1 K/uL (0.0-0.2); EOSINOPHILS # (AUTO) 0.1 K/uL (0.0-0.7); EOSINOPHILS % (AUTO) 1.1 % (0.0-6.0); HEMATOCRIT 25 % (33-45); HEMOGLOBIN 8.2 g/dL (11.5-14.8); LYMPHOCYTES # (AUTO) 1.5 K/uL (0.8-4.8); MEAN CORPUSCULAR HEMOGLOBIN 33 PG (26.0-33.0); MEAN CORPUSCULAR HGB CONC 33 g/dl (31.0-36.0); MEAN CORPUSCULAR VOLUME 101 fL (82-100); MONOCYTES # (AUTO) 0.8 K/uL (0.1-1.30); NEUTROPHILS # (AUTO) 8.4 K/uL (1.8-8.9); NEUTROPHILS % (AUTO) 76.9 % (43.0-81.0); PLATELET COUNT (AUTO) 322 K/uL (150-450); RED BLOOD CELL COUNT(AUTO) 2.47 MIL/uL (4.0-5.2); RED CELL DISTRIBUTION WIDTH 17.1 % (11.5-15.0)
[2024-02-08 15:05] LABS: CALCIUM, SERUM 9.8 mg/dL (8.5-10.1); CREATININE 3.4 mg/dL (0.6-1.3); POTASSIUM 5.1 mmol/L (3.5-5.1)
[2024-02-08 15:10] LABS: ALBUMIN 1.6 g/dL (3.4-5.0); BILIRUBIN,DIRECT 0.2 mg/dL (0.0-0.2); BILIRUBIN,TOTAL 0.4 mg/dL (0.2-1.0); TOTAL PROTEIN, SERUM 7.9 g/dL (6.4-8.2)
[2024-02-08 15:13] LABS: LACTIC ACID 0.8 mmol/L (0.4-2.0)
[2024-02-08 15:29] LABS: INR 1.12 (0.91-1.10); PARTIAL THROMBOPLASTIN TIME 25.7 SEC (24.3-34.3); PROTHROMBIN TIME 11.8 SECS (9.2-11.1)
[2024-02-08] MEDS ORDERED: PIPERACI/TAZO 3.375GM/D5W 50ML PB IV ONE (15:56)
[2024-02-08] MEDS ORDERED: NUT.237L67 GT (16:03)
[2024-02-08] MEDS ORDERED: MUPI22OI7 TP (16:03)
[2024-02-08] MEDS ORDERED: ACET325T53 GT (16:03)
[2024-02-08] MEDS: PIPERACILLIN /TAZOBACTAM 3.375 G in IV D5W 50 ML IV ONE (16:03)
[2024-02-08] MEDS ORDERED: LABE100T5 GT (16:03)
[2024-02-08] MEDS ORDERED: SODI473S9 TP (16:03)
[2024-02-08 16:47] LABS: EOSINOPHILS % (MANUAL) 2 % (0-4); LYMPHOCYTES % (MANUAL) 22 % (16-48); MONOCYTES % (MANUAL) 6 % (0-11.0); NEUTROPHILS % (MANUAL) 70 (42-76)
[2024-02-08 16:48] LABS: ANISOCYTOSIS 1+; PLATELET ESTIMATE ADEQUATE
[2024-02-08] MEDS ORDERED: ACETAMINOPHEN 325 MG TABLET PO PRN ×2 (17:30→18:00)
[2024-02-08] MEDS ORDERED: ZOLPIDEM TARTRATE 5 MG TABLET PO PRN ×2 (17:30→18:00)
[2024-02-08] MEDS ORDERED: Z GUARD REMEDY 4 OZ OINT TP PRN ×2 (17:30→18:00)
[2024-02-08] MEDS ORDERED: ACETAMINOPHEN 325 MG TABLET MC PRN (17:30)
[2024-02-08] MEDS ORDERED: MAGNESIUM HYDROXIDE 30 ML UDC PO PRN (17:30)
[2024-02-08] MEDS ORDERED: NEPRO VAN 237 ML CAN GT SCH ×2 (17:30→18:00)
[2024-02-08] MEDS ORDERED: MAG HYDROX/AL HYDROX/SIMETH 30 ML UDC PO PRN (17:30)
[2024-02-08] MEDS ORDERED: ONDANSETRON HCL/PF 4 MG/2 ML VIAL IVP PRN (17:30)
[2024-02-08] MEDS ORDERED: PIPERACILLIN /TAZOBACTAM 3.375 G in IV D5W 50 ML IV SCH (18:00)
[2024-02-08] MEDS ORDERED: ACETAMINOPHEN 650 MG/20.3 ML UDC GT PRN (18:30)
[2024-02-08 20:00] VITALS: BP 137/79; TEMP 98.2; O2SAT 95
[2024-02-08] MEDS: VANCOMYCIN 1 GM in IV D5W 250ml IV ONE (20:08)
[2024-02-08] MEDS: NEPRO 1,000 ML BOTTLE GT PRN (20:37)
[2024-02-08] MEDS: SIMVASTATIN 10 MG TABLET GT SCH (21:40)
[2024-02-09] MEDS ORDERED: PIPERACILLIN /TAZOBACTAM 2.25 G in IV D5W 50 ML IV SCH
[2024-02-09] MEDS ORDERED: PIPERCILLIN/TAZOBACTAM 2.25GM/D5W 50MLPB IV ONE (00:57)
[2024-02-09] MEDS: PIPERACILLIN /TAZOBACTAM 2.25 G in IV D5W 50 ML IV SCH ×2 (00:59→07:53)
[2024-02-09 04:00] VITALS: BP 152/84; TEMP 98; O2SAT 96
[2024-02-09 06:51] LABS: CALCIUM, SERUM 9.7 mg/dL (8.5-10.1); CREATININE 4.2 mg/dL (0.6-1.3); POTASSIUM 4.8 mmol/L (3.5-5.1)
[2024-02-09 08:00] VITALS: BP 146/86; TEMP 98.6; O2SAT 96
[2024-02-09] MEDS: LABETALOL HCL (100MG) 100 MG TABLET GT SCH (08:33)
[2024-02-09] MEDS: ACETAMINOPHEN 650 MG/20.3 ML UDC GT SCH (08:33)
[2024-02-09] MEDS: Fluoxetine 10 mg capsule PO SCH (08:33)
[2024-02-09] MEDS: AMLODIPINE BESYLATE 10 MG TABLET GT SCH (08:33)
[2024-02-09] MEDS ORDERED: Fluoxetine 10 mg capsule PO SCH (09:00)
[2024-02-09] MEDS ORDERED: ACETAMINOPHEN 325 MG TABLET MC SCH (09:00)
[2024-02-09 16:00] VITALS: BP 117/63; TEMP 97.7; O2SAT 99
[2024-02-09 20:00] VITALS: BP 130/74; TEMP 98.3; O2SAT 96
[2024-02-09] MEDS: HEPARIN SODIUM, PORCINE 5000 UNITS/1 ML VIAL SQ SCH (22:12)
[2024-02-10 04:00] VITALS: BP 128/82; TEMP 98.5; O2SAT 97
[2024-02-10 06:50] LABS: BASOPHILS # (AUTO) 0.1 K/uL (0.0-0.2); BASOPHILS % (AUTO) 0.6 % (0.0-2.0); EOSINOPHILS # (AUTO) 0.2 K/uL (0.0-0.7); HEMATOCRIT 23 % (33-45); HEMOGLOBIN 7.7 g/dL (11.5-14.8); LYMPHOCYTES # (AUTO) 1.7 K/uL (0.8-4.8); MEAN CORPUSCULAR HEMOGLOBIN 34 PG (26.0-33.0); MEAN CORPUSCULAR HGB CONC 34 g/dl (31.0-36.0); MEAN CORPUSCULAR VOLUME 101 fL (82-100); MONOCYTES # (AUTO) 0.7 K/uL (0.1-1.30); MONOCYTES % (AUTO) 7.3 % (2.0-12.0); NEUTROPHILS # (AUTO) 7.2 K/uL (1.8-8.9); NEUTROPHILS % (AUTO) 73.1 % (43.0-81.0); PLATELET COUNT (AUTO) 289 K/uL (150-450); RED BLOOD CELL COUNT(AUTO) 2.28 MIL/uL (4.0-5.2); RED CELL DISTRIBUTION WIDTH 16.8 % (11.5-15.0); WHITE BLOOD COUNT (AUTO) 9.8 K/uL (4.3-11.0)
[2024-02-10 06:51] LABS: CALCIUM, SERUM 9.5 mg/dL (8.5-10.1); CREATININE 3.3 mg/dL (0.6-1.3); POTASSIUM 4.5 mmol/L (3.5-5.1)
[2024-02-10 08:00] VITALS: BP 141/75; TEMP 97.9; O2SAT 96
[2024-02-10 16:00] VITALS: BP 134/73; TEMP 97.7; O2SAT 98
[2024-02-10 20:53] VITALS: BP 130/67; TEMP 97.9; O2SAT 96
[2024-02-11 05:43] VITALS: BP 139/79; TEMP 97.3; O2SAT 96
[2024-02-11 06:40] LABS: BASOPHILS # (AUTO) 0.1 K/uL (0.0-0.2); BASOPHILS % (AUTO) 0.6 % (0.0-2.0); EOSINOPHILS # (AUTO) 0.2 K/uL (0.0-0.7); EOSINOPHILS % (AUTO) 2.1 % (0.0-6.0); HEMATOCRIT 23 % (33-45); HEMOGLOBIN 7.5 g/dL (11.5-14.8); LYMPHOCYTES # (AUTO) 1.7 K/uL (0.8-4.8); LYMPHOCYTES % (AUTO) 17.2 % (20.0-44.0); MEAN CORPUSCULAR HEMOGLOBIN 34 PG (26.0-33.0); MEAN CORPUSCULAR HGB CONC 34 g/dl (31.0-36.0); MEAN CORPUSCULAR VOLUME 100 fL (82-100); MONOCYTES # (AUTO) 0.7 K/uL (0.1-1.30); MONOCYTES % (AUTO) 7.6 % (2.0-12.0); NEUTROPHILS # (AUTO) 7.1 K/uL (1.8-8.9); NEUTROPHILS % (AUTO) 72.5 % (43.0-81.0); PLATELET COUNT (AUTO) 284 K/uL (150-450); RED BLOOD CELL COUNT(AUTO) 2.25 MIL/uL (4.0-5.2); RED CELL DISTRIBUTION WIDTH 16.5 % (11.5-15.0); WHITE BLOOD COUNT (AUTO) 9.8 K/uL (4.3-11.0)
[2024-02-11 06:50] LABS: CALCIUM, SERUM 9.8 mg/dL (8.5-10.1); CREATININE 4.6 mg/dL (0.6-1.3); POTASSIUM 4.7 mmol/L (3.5-5.1)
[2024-02-11 08:00] VITALS: BP 136/73; TEMP 97; O2SAT 98
[2024-02-11 16:00] VITALS: BP 128/82; TEMP 98.5; O2SAT 97
[2024-02-11 20:00] VITALS: BP 135/66; TEMP 99; O2SAT 95
[2024-02-11] MEDS: VANCOMYCIN POST DIALYSIS 500MG IV PRN (20:28)
[2024-02-12 04:00] VITALS: BP 135/66; TEMP 99; O2SAT 95
[2024-02-12 06:43] LABS: CALCIUM, SERUM 8.9 mg/dL (8.5-10.1); CREATININE 2.9 mg/dL (0.6-1.3); POTASSIUM 3.9 mmol/L (3.5-5.1)
[2024-02-12 08:00] VITALS: BP 137/69; TEMP 98; O2SAT 97
[2024-02-12 16:00] VITALS: BP 131/71; TEMP 97.7; O2SAT 96
[2024-02-12 20:00] VITALS: BP 128/67; TEMP 99.1; O2SAT 97
[2024-02-13 04:00] VITALS: BP 152/78; TEMP 98.9; O2SAT 100
[2024-02-13 06:39] LABS: CALCIUM, SERUM 9.2 mg/dL (8.5-10.1); CREATININE 4.2 mg/dL (0.6-1.3); POTASSIUM 4.3 mmol/L (3.5-5.1)
[2024-02-13 08:00] VITALS: BP 120/60; TEMP 99; O2SAT 98
[2024-02-13] MEDS: ALBUMIN 25% 25 GM in PREMIX 1 EA IV PRN (14:30)
[2024-02-13 16:00] VITALS: BP 111/44; TEMP 98.9; O2SAT 98
[2024-02-13 17:00] VITALS: BP 111/44
== END 2024-02-13 20:19 | DRG 698 ==
LOC: ER 15:00 → TELE1 18:00 → MEDSG1 18:20
PROVIDERS: ADMIT Nurse Practitioner Acute Care; ATTEND Internal Medicine
PROC: 5A1D70Z Performance of Urinary Filtration, Intermittent, Less than 6 Hours Per Day (ICD-10-PCS; principal; 2024-02-09)
DX: N99.521 Infection of incontinent external stoma of urinary tract (principal); E43 Unspecified severe protein-calorie malnutrition; N17.0 Acute kidney failure with tubular necrosis; N18.6 End stage renal disease; D68.59 Other primary thrombophilia; I12.0 Hypertensive chronic kidney disease with stage 5 chronic kidney disease or end stage renal disease; L03.312 Cellulitis of back [any part except buttock and flank]; J90 Pleural effusion, not elsewhere classified; G93.49 Other encephalopathy; R64 Cachexia; L02.212 Cutaneous abscess of back [any part, except buttock and flank]; Y84.8 Other medical procedures as the cause of abnormal reaction of the patient, or of later complication, without mention of misadventure at the time of the procedure; Y92.129 Unspecified place in nursing home as the place of occurrence of the external cause; G40.909 Epilepsy, unspecified, not intractable, without status epilepticus; F03.90 Unspecified dementia, unspecified severity, without behavioral disturbance, psychotic disturbance, mood disturbance, and anxiety; K21.9 Gastro-esophageal reflux disease without esophagitis; Z79.899 Other long term (current) drug therapy; Z86.73 Personal history of transient ischemic attack (TIA), and cerebral infarction without residual deficits; Z87.448 Personal history of other diseases of urinary system; Z74.01 Bed confinement status; R13.10 Dysphagia, unspecified; Z99.2 Dependence on renal dialysis; E78.5 Hyperlipidemia, unspecified; E88.09 Other disorders of plasma-protein metabolism, not elsewhere classified; D63.1 Anemia in chronic kidney disease; F20.9 Schizophrenia, unspecified; F32.A Depression, unspecified; I27.20 Pulmonary hypertension, unspecified; R19.09 Other intra-abdominal and pelvic swelling, mass and lump
CPT/HCPCS: 36415; 71045-TC; 80048-TC; 80076-TC; 80202-TC; 83605-TC; 85025-TC; 85730-TC; 87040-TC; 90935-TC; A4216; A4223; A6403; A6407; G0378; J1644; J2543; J3370; J7030; J7050; J7060; P9047

== ENCOUNTER 2024-09-06 04:37 | Inpatient (IN) | payer MEDICARE, OTHER ==
[~2024-09-06] VITALS: Ht 152.4 cm; Wt 56.7 kg
[~2024-09-06 04:37] MED LIST changes: -BISA10SU11 RC; -CALC1TAB2 PO; -DOCU100C36 PO; -FAMO20TA8 PO; +LABE100T5 GT; -LABE200T5 PO; -LEVE100S GT; -LEVE500S9 PO; +MUPI22OI7 TP; +NUT.237L67 GT; -SENN-261 PO; +SODI473S9 TP
[2024-09-06 05:16] LABS: PLATELET COUNT (AUTO) 185 K/uL (150-450); RED BLOOD CELL COUNT(AUTO) 2.49 MIL/uL (4.0-5.2); RED CELL DISTRIBUTION WIDTH 18.5 % (11.5-15.0); WHITE BLOOD COUNT (AUTO) 8.5 K/uL (4.3-11.0)
[2024-09-06 05:28] LABS: SERUM AMMONIA 13 umol/L (11-32)
[2024-09-06 05:50] LABS: INR 1.11 (0.91-1.10)
[2024-09-06 05:53] LABS: ALCOHOL, BLOOD < 3 mg/dL (0-10); ASPARTATE AMINOTRANSFERASE 28 U/L (15-37); CALCIUM, SERUM 9.9 mg/dL (8.5-10.1); CREATININE 3.4 mg/dL (0.6-1.3); SODIUM SERUM 128 mmol/L (136-145); TOTAL PROTEIN, SERUM 7.5 g/dL (6.4-8.2); UREA NITROGEN, BLOOD 53 mg/dL (7-18)
[2024-09-06] MEDS ORDERED: Z GUARD REMEDY 4 OZ OINT TP PRN (07:00)
[2024-09-06] MEDS ORDERED: MAGNESIUM HYDROXIDE 30 ML UDC PO PRN (07:00)
[2024-09-06] MEDS ORDERED: ACETAMINOPHEN 325 MG TABLET PO PRN (07:00)
[2024-09-06] MEDS ORDERED: MAG HYDROX/AL HYDROX/SIMETH 30 ML UDC PO PRN (07:00)
[2024-09-06] MEDS ORDERED: ONDANSETRON HCL/PF 4 MG/2 ML VIAL IVP PRN ×2 (07:00→09:00)
[2024-09-06 08:57] VITALS: BP 175/82; TEMP 97.9; O2SAT 97
[2024-09-06] MEDS ORDERED: ACETAMINOPHEN 650 MG/SUPP.RECT RC PRN (09:00)
[2024-09-06] MEDS ORDERED: PANTOPRAZOLE 40 MG VIAL IV SCH (09:00)
[2024-09-06] MEDS: PANTOPRAZOLE 40 MG VIAL IV SCH (09:10)
[2024-09-06] MEDS ORDERED: LIQUID PROTEIN GT (09:27)
[2024-09-06] MEDS ORDERED: FOLI0.8T23 GT (09:27)
[2024-09-06] MEDS: NEPRO 1,000 ML BOTTLE GT PRN (09:59)
[2024-09-06 11:38] VITALS: BP 146/58; TEMP 97.5; O2SAT 97
[2024-09-06] MEDS: POTASSIUM CHLORIDE 20 MEQ POWDER PACKET GT ONE (12:08)
[2024-09-06 15:49] VITALS: BP 166/69; TEMP 97.5; O2SAT 97
[2024-09-06 16:00] VITALS: BP 166/69; TEMP 97.3; O2SAT 100
[2024-09-06 20:00] VITALS: BP 128/58; TEMP 98.8; O2SAT 95
[2024-09-07] VITALS: BP 139/56; TEMP 98.1; O2SAT 95
[2024-09-07 04:00] VITALS: BP 123/62; TEMP 98.2; O2SAT 97
[2024-09-07 07:38] LABS: PLATELET COUNT (AUTO) 144 K/uL (150-450); RED BLOOD CELL COUNT(AUTO) 2.50 MIL/uL (4.0-5.2); RED CELL DISTRIBUTION WIDTH 18.9 % (11.5-15.0); WHITE BLOOD COUNT (AUTO) 6.1 K/uL (4.3-11.0)
[2024-09-07 08:09] LABS: CALCIUM, SERUM 10.3 mg/dL (8.5-10.1); CREATININE 2.7 mg/dL (0.6-1.3); PHOSPHORUS 3.1 mg/dL (2.5-4.9); SODIUM SERUM 137.0 mmol/L (136-145); UREA NITROGEN, BLOOD 32.0 mg/dL (7-18)
[2024-09-07 08:15] LABS: LDL 31.0 mg/dL (0-99)
[2024-09-07 10:00] VITALS: BP 161/73; TEMP 98.6; O2SAT 97
[2024-09-07] MEDS: EPOETIN ALFA (10,000 UNIT) 10,000 UNIT/ML VIAL SQ ONE (11:08)
[2024-09-07] MEDS ORDERED: DOSING PER PHARMACY-CEFEPIME IVPB XX PRN (13:00)
[2024-09-07] MEDS: CEFEPIME 1 GM in IV D5W 50 ML IV SCH (13:40)
[2024-09-07 16:00] VITALS: BP 157/82; TEMP 98.1; O2SAT 95
[2024-09-07] MEDS: LABETALOL HCL (100MG) 100 MG TABLET GT SCH (17:02)
[2024-09-07] MEDS: VIT B CMPLX 3/FA/VIT C/BIOTIN 1 TAB TABLET GT SCH (17:04)
[2024-09-07] MEDS: PROSOURCE / PROSTAT (PYXIS) 30 ML UDC GT SCH (17:04)
[2024-09-07] MEDS: FLUOXETINE HCL 20 MG/5 ML UDC GT SCH (17:04)
[2024-09-07 20:00] VITALS: BP 158/94; TEMP 99; O2SAT 94
[2024-09-07 20:26] VITALS: BP 161/76; TEMP 99.1; O2SAT 93
[2024-09-07] MEDS: SIMVASTATIN 20 MG TABLET GT SCH (21:35)
[2024-09-07] MEDS: ACETAMINOPHEN 650 MG/20.3 ML UDC GT PRN (21:35)
[2024-09-08] VITALS (8 sets, daily range): BP systolic 130–189; BP diastolic 69–110; TEMP 97.5–98.4; O2SAT 96–99
[2024-09-08] MEDS: hydrALAZINE HCL IV 20 MG VIAL IV PRN (05:06)
[2024-09-08] MEDS: PANTOPRAZOLE 40 MG/PACK PACK GT SCH (08:30)
[2024-09-08] MEDS: MUPIROCIN OINT 2% 22 GM TUBE NS SCH (20:54)
[2024-09-09 00:46] VITALS: BP_SYST 156; BP_SYST 158; BP_DIAS 100; BP_DIAS 88; TEMP 98.2; O2SAT 93
[2024-09-09 01:07] LABS: HEPATITIS B SURFACE AB (QUAL) Non Reactive (.)
[2024-09-09 07:06] LABS: PLATELET COUNT (AUTO) 156 K/uL (150-450); RED BLOOD CELL COUNT(AUTO) 2.47 MIL/uL (4.0-5.2); RED CELL DISTRIBUTION WIDTH 18.7 % (11.5-15.0); WHITE BLOOD COUNT (AUTO) 6.3 K/uL (4.3-11.0)
[2024-09-09 07:19] LABS: ASPARTATE AMINOTRANSFERASE 23.0 U/L (15-37); CALCIUM, SERUM 9.8 mg/dL (8.5-10.1); CREATININE 2.8 mg/dL (0.6-1.3); PHOSPHORUS 2.9 mg/dL (2.5-4.9); SODIUM SERUM 136.0 mmol/L (136-145); TOTAL PROTEIN, SERUM 7.4 g/dL (6.4-8.2); UREA NITROGEN, BLOOD 32.0 mg/dL (7-18)
[2024-09-09 07:30] VITALS: BP 144/55; TEMP 98.4; O2SAT 96
[2024-09-09 15:49] VITALS: BP 127/51; TEMP 98.1; O2SAT 97
[2024-09-09 16:00] VITALS: BP 127/51; TEMP 98.1; O2SAT 97
[2024-09-09 20:00] VITALS: BP 126/45; TEMP 98.4; O2SAT 98
[2024-09-10] VITALS (8 sets, daily range): BP systolic 116–173; BP diastolic 37–79; TEMP 98.1–98.8; O2SAT 95–99
[2024-09-10 07:12] LABS: ASPARTATE AMINOTRANSFERASE 24.0 U/L (15-37); CALCIUM, SERUM 9.7 mg/dL (8.5-10.1); CREATININE 2.1 mg/dL (0.6-1.3); SODIUM SERUM 140.0 mmol/L (136-145); TOTAL PROTEIN, SERUM 7.2 g/dL (6.4-8.2); UREA NITROGEN, BLOOD 18.0 mg/dL (7-18)
[2024-09-11] VITALS (7 sets, daily range): BP systolic 123–162; BP diastolic 49–81; TEMP 97.9–99.3; O2SAT 97–98
[2024-09-11 07:05] LABS: ASPARTATE AMINOTRANSFERASE 21.0 U/L (15-37); CALCIUM, SERUM 11.0 mg/dL (8.5-10.1); CREATININE 3.5 mg/dL (0.6-1.3); SODIUM SERUM 141.0 mmol/L (136-145); TOTAL PROTEIN, SERUM 7.4 g/dL (6.4-8.2); UREA NITROGEN, BLOOD 40.0 mg/dL (7-18)
[2024-09-12] VITALS: BP 139/68; TEMP 98.8; O2SAT 98
[2024-09-12 04:00] VITALS: BP 159/50; TEMP 98.2; O2SAT 99
[2024-09-12 07:30] VITALS: BP 162/52; TEMP 98.6; O2SAT 99
[2024-09-12 11:48] LABS: ASPARTATE AMINOTRANSFERASE 18.0 U/L (15-37); CALCIUM, SERUM 10.5 mg/dL (8.5-10.1); CREATININE 3.1 mg/dL (0.6-1.3); SODIUM SERUM 143.0 mmol/L (136-145); TOTAL PROTEIN, SERUM 7.1 g/dL (6.4-8.2); UREA NITROGEN, BLOOD 32.0 mg/dL (7-18)
[2024-09-12 16:24] VITALS: BP 150/53; TEMP 97.9; O2SAT 98
[2024-09-12 20:00] VITALS: BP 139/56; TEMP 97.5; O2SAT 98
[2024-09-13] VITALS: BP 151/64; TEMP 98.1; O2SAT 99
[2024-09-13 04:00] VITALS: BP 127/58; TEMP 97.7; O2SAT 99
[2024-09-13 08:00] VITALS: BP 137/56; TEMP 98.4; O2SAT 100
[2024-09-13] MEDS: NEOMY SULF/BACITRAC ZN/POLY 15 GM TUBE TP SCH (08:46)
[2024-09-13 09:09] LABS: ASPARTATE AMINOTRANSFERASE 19.0 U/L (15-37); CALCIUM, SERUM 11.2 mg/dL (8.5-10.1); CREATININE 4.4 mg/dL (0.6-1.3); SODIUM SERUM 143.0 mmol/L (136-145); TOTAL PROTEIN, SERUM 7.5 g/dL (6.4-8.2); UREA NITROGEN, BLOOD 47.0 mg/dL (7-18)
[2024-09-13 16:00] VITALS: BP 150/76; TEMP 98.1; O2SAT 99
[2024-09-13 20:00] VITALS: BP 133/55; TEMP 98.4; O2SAT 98
[2024-09-14 07:53] LABS: ASPARTATE AMINOTRANSFERASE 19.0 U/L (15-37); CALCIUM, SERUM 10.0 mg/dL (8.5-10.1); CREATININE 2.8 mg/dL (0.6-1.3); SODIUM SERUM 136.0 mmol/L (136-145); TOTAL PROTEIN, SERUM 8.0 g/dL (6.4-8.2); UREA NITROGEN, BLOOD 26.0 mg/dL (7-18)
[2024-09-14 08:23] VITALS: BP 112/40; TEMP 98.4; O2SAT 99
[2024-09-14 16:12] VITALS: BP 134/70; TEMP 97.5; O2SAT 97
[2024-09-14 20:41] VITALS: BP 129/51; TEMP 98.2; O2SAT 100
[2024-09-15 08:00] VITALS: BP 135/53; TEMP 98.6; O2SAT 96
[2024-09-15] MEDS: Z GUARD REMEDY 4 OZ OINT TP PRN (08:31)
[2024-09-15 15:53] LABS: PLATELET COUNT (AUTO) 91 K/uL (150-450); RED BLOOD CELL COUNT(AUTO) 2.68 MIL/uL (4.0-5.2); RED CELL DISTRIBUTION WIDTH 17.8 % (11.5-15.0); WHITE BLOOD COUNT (AUTO) 6.9 K/uL (4.3-11.0)
[2024-09-15 16:00] VITALS: BP 151/80; TEMP 98.8; O2SAT 94
[2024-09-15] MEDS: EPOETIN ALFA (10,000 UNIT) 10,000 UNIT/ML VIAL SQ SCH (16:42)
[2024-09-15 18:22] LABS: BASOPHILS % (MANUAL) 0 % (0.0-2.0); EOSINOPHILS % (MANUAL) 5 % (0-4); LYMPHOCYTES % (MANUAL) 22 % (16-48); MONOCYTES % (MANUAL) 6 % (0-11.0); NEUTROPHILS % (MANUAL) 67 (42-76); PLATELET ESTIMATE DECREASED
[2024-09-15 18:43] LABS: ASPARTATE AMINOTRANSFERASE 20.0 U/L (15-37); CALCIUM, SERUM 11.5 mg/dL (8.5-10.1); CREATININE 4.8 mg/dL (0.6-1.3); SODIUM SERUM 140.0 mmol/L (136-145); TOTAL PROTEIN, SERUM 7.7 g/dL (6.4-8.2); UREA NITROGEN, BLOOD 53.0 mg/dL (7-18)
[2024-09-15 20:00] VITALS: BP 149/84; TEMP 97.5; O2SAT 97
[2024-09-16 07:53] LABS: ASPARTATE AMINOTRANSFERASE 19.0 U/L (15-37); CALCIUM, SERUM 12.0 mg/dL (8.5-10.1); CREATININE 5.5 mg/dL (0.6-1.3); SODIUM SERUM 141.0 mmol/L (136-145); TOTAL PROTEIN, SERUM 7.6 g/dL (6.4-8.2); UREA NITROGEN, BLOOD 62.0 mg/dL (7-18)
[2024-09-16 08:00] VITALS: BP 180/73; TEMP 97.5; O2SAT 92
[2024-09-16 16:00] VITALS: BP 130/55; TEMP 98.1; O2SAT 96
[2024-09-16] MEDS: ALBUMIN 25% 25 GM in PREMIX 1 EA IV PRN (19:54)
[2024-09-16 20:00] VITALS: BP 98/52; TEMP 98.4; O2SAT 96
[2024-09-16 20:53] VITALS: BP 125/64; TEMP 98.4; O2SAT 96
[2024-09-17 07:00] VITALS: BP 164/68; TEMP 98.4; O2SAT 97
[2024-09-17 08:04] LABS: ASPARTATE AMINOTRANSFERASE 23.0 U/L (15-37); CALCIUM, SERUM 11.4 mg/dL (8.5-10.1); CREATININE 3.7 mg/dL (0.6-1.3); SODIUM SERUM 139.0 mmol/L (136-145); TOTAL PROTEIN, SERUM 8.3 g/dL (6.4-8.2); UREA NITROGEN, BLOOD 37.0 mg/dL (7-18)
[2024-09-17 08:05] LABS: PLATELET COUNT (AUTO) 105 K/uL (150-450); RED BLOOD CELL COUNT(AUTO) 2.71 MIL/uL (4.0-5.2); RED CELL DISTRIBUTION WIDTH 18.3 % (11.5-15.0); WHITE BLOOD COUNT (AUTO) 8.7 K/uL (4.3-11.0)
[2024-09-17 09:23] LABS: PHOSPHORUS 2.8 mg/dL (2.5-4.9)
[2024-09-17 16:00] VITALS: BP 186/77; TEMP 97.9; O2SAT 97
[2024-09-17 20:00] VITALS: BP 142/48; TEMP 98.2; O2SAT 96
[2024-09-18 07:30] VITALS: BP 152/78; TEMP 97.3; O2SAT 95
[2024-09-18 08:25] LABS: ASPARTATE AMINOTRANSFERASE 22.0 U/L (15-37); CALCIUM, SERUM 12.5 mg/dL (8.5-10.1); CREATININE 5.1 mg/dL (0.6-1.3); SODIUM SERUM 138.0 mmol/L (136-145); TOTAL PROTEIN, SERUM 8.1 g/dL (6.4-8.2); UREA NITROGEN, BLOOD 58.0 mg/dL (7-18)
[2024-09-18 16:00] VITALS: BP 147/55; TEMP 97.7; O2SAT 94
[2024-09-18 20:00] VITALS: BP 143/70; TEMP 99.1; O2SAT 98
[2024-09-18] MEDS ORDERED: ALBUMIN 25% 100 ML IV ONE (23:13)
[2024-09-18] MEDS: ALBUMIN 25% 12.5 GM/50 ML BOTTLE IV ONE (23:33)
[2024-09-19 08:00] VITALS: BP 131/54; TEMP 99.1; O2SAT 97
[2024-09-19 08:01] LABS: PLATELET COUNT (AUTO) 123 K/uL (150-450); RED BLOOD CELL COUNT(AUTO) 2.55 MIL/uL (4.0-5.2); RED CELL DISTRIBUTION WIDTH 18.7 % (11.5-15.0); WHITE BLOOD COUNT (AUTO) 7.5 K/uL (4.3-11.0)
[2024-09-19 08:13] LABS: ASPARTATE AMINOTRANSFERASE 17.0 U/L (15-37); CALCIUM, SERUM 11.5 mg/dL (8.5-10.1); CREATININE 3.4 mg/dL (0.6-1.3); PHOSPHORUS 2.8 mg/dL (2.5-4.9); SODIUM SERUM 141.0 mmol/L (136-145); TOTAL PROTEIN, SERUM 8.1 g/dL (6.4-8.2); UREA NITROGEN, BLOOD 37.0 mg/dL (7-18)
[2024-09-19 12:41] LABS: PROTEIN, BODY FLUID 5.1 G/DL
[2024-09-19 14:26] LABS: APPEARANCE,SPUN,BODY FLUID CLEAR (CLEAR); TOTAL VOLUME,BODY FLUID 5 mL; WBC, BODY FLUID 41 /cu. mm. (0-200)
[2024-09-19 14:31] LABS: MONOCYTES,BODY FLUID 7 %
[2024-09-19 16:00] VITALS: BP 145/72; TEMP 98.4; O2SAT 92
[2024-09-19 20:00] VITALS: BP 122/48; TEMP 97.9; O2SAT 97
[2024-09-20 07:00] VITALS: BP 210/63; TEMP 97.7
[2024-09-20 07:29] LABS: PLATELET COUNT (AUTO) 171 K/uL (150-450); RED BLOOD CELL COUNT(AUTO) 2.76 MIL/uL (4.0-5.2); RED CELL DISTRIBUTION WIDTH 18.4 % (11.5-15.0); WHITE BLOOD COUNT (AUTO) 7.7 K/uL (4.3-11.0)
[2024-09-20 07:45] LABS: CALCIUM, SERUM 12.5 mg/dL (8.5-10.1); CREATININE 4.9 mg/dL (0.6-1.3); PHOSPHORUS 4.2 mg/dL (2.5-4.9); SODIUM SERUM 142.0 mmol/L (136-145); UREA NITROGEN, BLOOD 61.0 mg/dL (7-18)
[2024-09-20] MEDS ORDERED: PIPERACILLIN /TAZOBACTAM 3.375 G in IV D5W 50 ML IV SCH (09:30)
[2024-09-20] MEDS: PIPERACILLIN /TAZOBACTAM 2.25 G in IV D5W 50 ML IV SCH (11:04)
[2024-09-20 16:00] VITALS: BP 106/65; TEMP 98.1; O2SAT 100
[2024-09-20] MEDS ORDERED: DOSING PER PHARMACY-VANCOMYCIN IV XX PRN (16:00)
[2024-09-20] MEDS: VANCOMYCIN 1 GM in IV D5W 250ml IV ONE (18:54)
[2024-09-20 20:00] VITALS: BP 118/51; TEMP 98.1; O2SAT 99
[2024-09-21 07:43] LABS: PLATELET COUNT (AUTO) 186 K/uL (150-450); RED BLOOD CELL COUNT(AUTO) 3.03 MIL/uL (4.0-5.2); RED CELL DISTRIBUTION WIDTH 19.4 % (11.5-15.0); WHITE BLOOD COUNT (AUTO) 9.0 K/uL (4.3-11.0)
[2024-09-21 08:00] VITALS: BP 121/44; TEMP 97.8; O2SAT 99
[2024-09-21 08:17] VITALS: BP 121/54; TEMP 97.8; O2SAT 99
[2024-09-21 08:32] LABS: ASPARTATE AMINOTRANSFERASE 17.0 U/L (15-37); CALCIUM, SERUM 11.4 mg/dL (8.5-10.1); CREATINE KINASE, TOTAL 32.0 U/L (26-192); CREATININE 2.9 mg/dL (0.6-1.3); PHOSPHORUS 3.0 mg/dL (2.5-4.9); SODIUM SERUM 139.0 mmol/L (136-145); TOTAL PROTEIN, SERUM 8.6 g/dL (6.4-8.2); UREA NITROGEN, BLOOD 35.0 mg/dL (7-18)
[2024-09-21 16:00] VITALS: BP 125/49; TEMP 98.1; O2SAT 98
[2024-09-21 16:13] LABS: HIV-1/2 ANTIBODY NON REACTIVE (NONREACTIVE)
[2024-09-21 16:41] VITALS: BP 125/49; TEMP 98.1; O2SAT 98
[2024-09-21 20:00] VITALS: BP 119/50; TEMP 98.2; O2SAT 96
[2024-09-21 21:15] VITALS: BP 119/50; TEMP 98.2; O2SAT 96
[2024-09-22 08:00] VITALS: BP 133/47; TEMP 97.6; O2SAT 98
[2024-09-22 10:18] LABS: ASPARTATE AMINOTRANSFERASE 15.0 U/L (15-37); CALCIUM, SERUM 12.5 mg/dL (8.5-10.1); CREATININE 4.7 mg/dL (0.6-1.3); SODIUM SERUM 141.0 mmol/L (136-145); TOTAL PROTEIN, SERUM 8.4 g/dL (6.4-8.2); UREA NITROGEN, BLOOD 73.0 mg/dL (7-18)
[2024-09-22 16:00] VITALS: BP 156/61; TEMP 98.7; O2SAT 98
[2024-09-23 00:51] VITALS: BP 156/61; TEMP 97.7; O2SAT 98
[2024-09-23 03:07] LABS: PTH, INTACT 20 pg/mL (15-65)
[2024-09-23 07:09] LABS: PLATELET COUNT (AUTO) 236 K/uL (150-450); RED BLOOD CELL COUNT(AUTO) 2.90 MIL/uL (4.0-5.2); RED CELL DISTRIBUTION WIDTH 18.4 % (11.5-15.0); WHITE BLOOD COUNT (AUTO) 7.2 K/uL (4.3-11.0)
[2024-09-23 07:48] LABS: PHOSPHORUS 3.8 mg/dL (2.5-4.9)
[2024-09-23 08:00] VITALS: BP 118/44; TEMP 99.7; O2SAT 98
[2024-09-23 08:15] LABS: CALCIUM, SERUM 11.3 mg/dL (8.5-10.1); CREATININE 3.1 mg/dL (0.6-1.3); SODIUM SERUM 142.0 mmol/L (136-145); UREA NITROGEN, BLOOD 38.0 mg/dL (7-18)
[2024-09-23 16:00] VITALS: BP 121/46; TEMP 99.9; O2SAT 94
[2024-09-23 20:00] VITALS: BP 143/63; TEMP 98.4; O2SAT 96
[2024-09-24 07:27] LABS: CALCIUM, SERUM 12.3 mg/dL (8.5-10.1); CREATININE 4.7 mg/dL (0.6-1.3); SODIUM SERUM 143.0 mmol/L (136-145); UREA NITROGEN, BLOOD 66.0 mg/dL (7-18)
[2024-09-24 08:00] VITALS: BP 161/91; TEMP 98.7; O2SAT 96
[2024-09-24 13:08] LABS: *SPE A/G RATIO 0.8 (0.7-1.7); *SPE ALBUMIN 3.5 g/dL (2.9-4.4); *SPE ALPHA-1-GLOBULIN 0.4 g/dL (0.0-0.4); *SPE ALPHA-2-GLOBULIN 0.8 g/dL (0.4-1.0); *SPE BETA GLOBULIN 0.9 g/dL (0.7-1.3); *SPE GLOBULIN, TOTAL 4.2 g/dL (2.2-3.9); *SPE M-SPIKE Not Observed g/dL (Not Observed); *SPE PROTEIN TOTAL 7.7 g/dL (6.0-8.5); *SPEGAMMA GLOBULIN 2.0 g/dL (0.4-1.8)
[2024-09-24 15:36] LABS: PLATELET COUNT (AUTO) 280 K/uL (150-450); RED BLOOD CELL COUNT(AUTO) 2.75 MIL/uL (4.0-5.2); RED CELL DISTRIBUTION WIDTH 17.6 % (11.5-15.0); WHITE BLOOD COUNT (AUTO) 7.9 K/uL (4.3-11.0)
[2024-09-24 16:00] VITALS: BP 168/85; TEMP 98.2; O2SAT 98
[2024-09-24 20:00] VITALS: BP 113/71; TEMP 98.1; O2SAT 97
[2024-09-24] MEDS: VANCOMYCIN POST DIALYSIS 500MG IV PRN (20:57)
[2024-09-25 06:25] LABS: PLATELET COUNT (AUTO) 244 K/uL (150-450); RED BLOOD CELL COUNT(AUTO) 3.03 MIL/uL (4.0-5.2); RED CELL DISTRIBUTION WIDTH 18.2 % (11.5-15.0); WHITE BLOOD COUNT (AUTO) 7.9 K/uL (4.3-11.0)
[2024-09-25 07:00] VITALS: BP 160/83; TEMP 98.1; O2SAT 96
[2024-09-25 07:09] LABS: CALCIUM, SERUM 11.1 mg/dL (8.5-10.1); CREATININE 3.2 mg/dL (0.6-1.3); PHOSPHORUS 4.5 mg/dL (2.5-4.9); SODIUM SERUM 141.0 mmol/L (136-145); UREA NITROGEN, BLOOD 39.0 mg/dL (7-18)
[2024-09-25 08:00] VITALS: BP 160/83; TEMP 98.1; O2SAT 96
[2024-09-25] MEDS ORDERED: CEFE2FRO IV (11:17)
[2024-09-25] MEDS ORDERED: EPOE1VIA7 SQ (11:17)
[2024-09-25] MEDS ORDERED: [UNRECOGNIZED DRUG - REMARK] (11:24)
[2024-09-25 15:45] VITALS: BP 153/83; TEMP 98.4; O2SAT 98
[2024-09-25 16:00] VITALS: BP 153/83; TEMP 98.4; O2SAT 98
[2024-09-25 17:49] VITALS: BP 153/83
== END 2024-09-25 18:50 | DRG 177 ==
LOC: ER 04:46 → TELE 08:09 → MED 09-13 11:14
PROVIDERS: ADMIT Nurse Practitioner Acute Care; ATTEND Nurse Practitioner Acute Care
PROC: 5A1D70Z Performance of Urinary Filtration, Intermittent, Less than 6 Hours Per Day (ICD-10-PCS; principal; 2024-09-06)
PROC: 0W9B30Z Drainage of Left Pleural Cavity with Drainage Device, Percutaneous Approach (ICD-10-PCS; 2024-09-15)
DX: J15.69 Pneumonia due to other Gram-negative bacteria (principal); E43 Unspecified severe protein-calorie malnutrition; J86.9 Pyothorax without fistula; J81.0 Acute pulmonary edema; N18.6 End stage renal disease; J96.01 Acute respiratory failure with hypoxia; G93.41 Metabolic encephalopathy; I12.0 Hypertensive chronic kidney disease with stage 5 chronic kidney disease or end stage renal disease; D68.59 Other primary thrombophilia; E87.1 Hypo-osmolality and hyponatremia; J94.8 Other specified pleural conditions; R64 Cachexia; J90 Pleural effusion, not elsewhere classified; F01.53 Vascular dementia, unspecified severity, with mood disturbance; Z99.2 Dependence on renal dialysis; Z86.73 Personal history of transient ischemic attack (TIA), and cerebral infarction without residual deficits; E87.6 Hypokalemia; D69.6 Thrombocytopenia, unspecified; E03.9 Hypothyroidism, unspecified; E78.5 Hyperlipidemia, unspecified; I27.20 Pulmonary hypertension, unspecified; K21.9 Gastro-esophageal reflux disease without esophagitis; R13.10 Dysphagia, unspecified; Z93.1 Gastrostomy status; Z74.01 Bed confinement status; E88.09 Other disorders of plasma-protein metabolism, not elsewhere classified; D63.8 Anemia in other chronic diseases classified elsewhere; I25.10 Atherosclerotic heart disease of native coronary artery without angina pectoris; F20.9 Schizophrenia, unspecified; F32.A Depression, unspecified; G40.909 Epilepsy, unspecified, not intractable, without status epilepticus; L89.156 Pressure-induced deep tissue damage of sacral region; S61.219A Laceration without foreign body of unspecified finger without damage to nail, initial encounter; X58.XXXA Exposure to other specified factors, initial encounter; Y92.9 Unspecified place or not applicable; Y95 Nosocomial condition; M62.462 Contracture of muscle, left lower leg; M62.461 Contracture of muscle, right lower leg; M62.422 Contracture of muscle, left upper arm; M62.421 Contracture of muscle, right upper arm; L89.116 Pressure-induced deep tissue damage of right upper back; L89.126 Pressure-induced deep tissue damage of left upper back; S30.820A Blister (nonthermal) of lower back and pelvis, initial encounter; M89.8X9 Other specified disorders of bone, unspecified site; Z20.822 Contact with and (suspected) exposure to COVID-19
CPT/HCPCS: 36415; 70450-TC; 71045-TC; 71250-TC; 75989-TC; 80048-TC; 80053-TC; 80061-TC; 80076-TC; 80202-TC; 82140-TC; 82550-TC; 82962-TC; 83735-TC; 83970; 84100-TC; 84155; 84165; 84484-TC; 85025-TC; 85027-TC; 85730-TC; 86706; 86803; 86850-TC; 87040-TC; 87070-TC; 87081-TC; 87340; 87806; 89051-TC; 90935-TC; A4216; A4223; A6223; G0378; G0480; J0360; J0692; J0885; J2470; J2543; J3373; J7030; J7050; J7060; P9047

== ENCOUNTER 2024-10-07 04:17 | Inpatient (IN) | payer MEDICARE, OTHER ==
[2024-10-07] VITALS (9 sets, daily range): BP systolic 147–163; BP diastolic 115–120; TEMP 97.5–99.1; O2SAT 94–100
[~2024-10-07] VITALS: Ht 152.4 cm; Wt 59.4 kg
[~2024-10-07 04:17] MED LIST changes: -AMLO-213 GT; +CEFE2FRO IV; -CLIN300C12 GT; +EPOE1VIA7 SQ; +FOLI0.8T23 GT; +LIQUID PROTEIN GT; -MUPI22OI7 TP; -NUT.237L67 GT; -SODI473S9 TP; +[UNRECOGNIZED DRUG - REMARK]
[2024-10-07 06:40] LABS: PLATELET COUNT (AUTO) 194 K/uL (150-450); RED BLOOD CELL COUNT(AUTO) 3.18 MIL/uL (4.0-5.2); RED CELL DISTRIBUTION WIDTH 16.7 % (11.5-15.0); WHITE BLOOD COUNT (AUTO) 8.9 K/uL (4.3-11.0)
[2024-10-07 06:49] LABS: CALCIUM, SERUM 11.9 mg/dL (8.5-10.1); CREATININE 4.9 mg/dL (0.6-1.3); SODIUM SERUM 128 mmol/L (136-145)
[2024-10-07 06:50] LABS: UREA NITROGEN, BLOOD 90 mg/dL (7-18)
[2024-10-07 06:54] LABS: INR 1.06 (0.91-1.10)
[2024-10-07 07:02] LABS: ASPARTATE AMINOTRANSFERASE 23 U/L (15-37); NT-PRO BNP 15831 pg/mL (0-125); TOTAL PROTEIN, SERUM 7.8 g/dL (6.4-8.2)
[2024-10-07] MEDS ORDERED: ACETAMINOPHEN 325 MG TABLET PO PRN (08:30)
[2024-10-07] MEDS ORDERED: MORPHINE SULFATE INJ 2 MG/ML DISP.SYRIN IV PRN (08:30)
[2024-10-07] MEDS ORDERED: ALBUTEROL FS 2.5 MG/0.5 ML VIAL.NEB NEB PRN (08:30)
[2024-10-07] MEDS ORDERED: ONDANSETRON HCL/PF 4 MG/2 ML VIAL IVP PRN (08:30)
[2024-10-07] MEDS ORDERED: DOSING PER PHARMACY-CEFEPIME IVPB XX PRN (10:00)
[2024-10-07 10:25] LABS: ABG BASE EXCESS -0.1 mmol/L (-2.0-3.0); ABG OXYGEN SATURATION 94.6 % (94.0-98.0); ABG PCO2 36.5 mmHg (32.0-45.0); ABG PH 7.434 (7.350-7.450); ABG PO2 79.8 mmHg (83.0-108.0); ABG TOTAL HEMOGLOBIN 10.0 G/dL (12.0-16.0); FLOW, BLOOD GAS 4.00 L/min (0.00-30.00); FRACTIONATED INSPIRED OXYGEN 36.0 %; SITE, ABG RIGHT RADIAL
[2024-10-07] MEDS: ALBUTEROL HALF STRENGTH 1.25 MG/3 ML VIAL.NEB NEB SCH (10:38)
[2024-10-07] MEDS: ACETYLCYSTEINE 10% SOLN 400 MG/4 ML VIAL NEB SCH (10:38)
[2024-10-07] MEDS: IPRATROPIUM NEB FS 0.5 MG/2.5 ML AMPUL.NEB NEB SCH (10:38)
[2024-10-07] MEDS ORDERED: NYST500P2 TP (10:57)
[2024-10-07] MEDS ORDERED: [UNRECOGNIZED DRUG - OTHER] GT (10:57)
[2024-10-07] MEDS ORDERED: NEPRO 1.8 GT (10:57)
[2024-10-07] MEDS ORDERED: SEVE800T7 GT (10:57)
[2024-10-07] MEDS: CEFEPIME 1 GM in IV D5W 50 ML IV SCH (10:58)
[2024-10-07] MEDS: NEPRO 1,000 ML BOTTLE GT PRN (12:20)
[2024-10-07] MEDS ORDERED: ALBUTEROL FS 2.5 MG/3 ML VIAL.NEB NEB SCH (13:30)
[2024-10-07] MEDS ORDERED: IPRATROPIUM NEB FS 0.5 MG/2.5 ML AMPUL.NEB NEB SCH (13:30)
[2024-10-08] VITALS (17 sets, daily range): BP systolic 126–189; BP diastolic 64–98; TEMP 97.7–98.8; O2SAT 96–99
[2024-10-08 07:10] LABS: PLATELET COUNT (AUTO) 147 K/uL (150-450); RED BLOOD CELL COUNT(AUTO) 2.49 MIL/uL (4.0-5.2); RED CELL DISTRIBUTION WIDTH 17.0 % (11.5-15.0); WHITE BLOOD COUNT (AUTO) 10.0 K/uL (4.3-11.0)
[2024-10-08 07:47] LABS: ASPARTATE AMINOTRANSFERASE 22.0 U/L (15-37); CALCIUM, SERUM 9.7 mg/dL (8.5-10.1); CREATININE 2.8 mg/dL (0.6-1.3); PHOSPHORUS 3.1 mg/dL (2.5-4.9); SODIUM SERUM 137.0 mmol/L (136-145); TOTAL PROTEIN, SERUM 6.4 g/dL (6.4-8.2); UREA NITROGEN, BLOOD 40.0 mg/dL (7-18)
[2024-10-08] MEDS ORDERED: DOSING PER PHARMACY-VANCOMYCIN IV XX PRN (08:30)
[2024-10-08] MEDS: Z GUARD REMEDY 4 OZ OINT TP SCH (09:07)
[2024-10-08] MEDS: CLOTRIMAZOLE 1% 15 GM TUBE TP SCH (09:08)
[2024-10-08] MEDS: VANCOMYCIN 1 GM in IV D5W 250ml IV ONE (09:40)
[2024-10-08] MEDS: POTASSIUM CHLORIDE 20 MEQ POWDER PACKET GT ONE (10:52)
[2024-10-08] MEDS: hydrALAZINE HCL IV 20 MG VIAL IV PRN (12:37)
[2024-10-09] VITALS (16 sets, daily range): BP systolic 123–156; BP diastolic 51–79; TEMP 97.9–99.1; O2SAT 97–99
[2024-10-09 06:46] LABS: PLATELET COUNT (AUTO) 173 K/uL (150-450); RED BLOOD CELL COUNT(AUTO) 2.60 MIL/uL (4.0-5.2); RED CELL DISTRIBUTION WIDTH 16.9 % (11.5-15.0); WHITE BLOOD COUNT (AUTO) 9.4 K/uL (4.3-11.0)
[2024-10-09 07:28] LABS: CALCIUM, SERUM 10.8 mg/dL (8.5-10.1); CREATININE 4.4 mg/dL (0.6-1.3); PHOSPHORUS 4.5 mg/dL (2.5-4.9); SODIUM SERUM 139.0 mmol/L (136-145); UREA NITROGEN, BLOOD 58.0 mg/dL (7-18)
[2024-10-09] MEDS: Z GUARD REMEDY 4 OZ OINT TP PRN (09:36)
[2024-10-09] MEDS: EPOETIN ALFA (10,000 UNIT) 10,000 UNIT/ML VIAL SQ SCH (15:27)
[2024-10-09] MEDS ORDERED: VANCOMYCIN POST DIALYSIS 500MG IV PRN (17:00)
[2024-10-10] VITALS (10 sets, daily range): BP systolic 121–143; BP diastolic 51–65; TEMP 98.4–99.1; O2SAT 96–100
[2024-10-10] MEDS ORDERED: CEFE1FRO IV (08:06)
[2024-10-10 08:21] LABS: PLATELET COUNT (AUTO) 198 K/uL (150-450); RED BLOOD CELL COUNT(AUTO) 2.87 MIL/uL (4.0-5.2); RED CELL DISTRIBUTION WIDTH 17.0 % (11.5-15.0); WHITE BLOOD COUNT (AUTO) 7.1 K/uL (4.3-11.0)
[2024-10-10 08:42] LABS: CALCIUM, SERUM 11.3 mg/dL (8.5-10.1); CREATININE 3.7 mg/dL (0.6-1.3); PHOSPHORUS 4.5 mg/dL (2.5-4.9); SODIUM SERUM 143.0 mmol/L (136-145); UREA NITROGEN, BLOOD 47.0 mg/dL (7-18)
== END 2024-10-10 12:40 | DRG 640 ==
LOC: ER 04:18 → MEDSG1 08:33 → TELE1 08:53
PROVIDERS: ADMIT Internal Medicine; ATTEND Internal Medicine
PROC: 5A1D70Z Performance of Urinary Filtration, Intermittent, Less than 6 Hours Per Day (ICD-10-PCS; principal; 2024-10-07)
DX: E87.70 Fluid overload, unspecified (principal); J18.9 Pneumonia, unspecified organism; J96.01 Acute respiratory failure with hypoxia; N18.6 End stage renal disease; I12.0 Hypertensive chronic kidney disease with stage 5 chronic kidney disease or end stage renal disease; J94.8 Other specified pleural conditions; M48.54XA Collapsed vertebra, not elsewhere classified, thoracic region, initial encounter for fracture; E87.1 Hypo-osmolality and hyponatremia; G40.909 Epilepsy, unspecified, not intractable, without status epilepticus; D63.8 Anemia in other chronic diseases classified elsewhere; K21.9 Gastro-esophageal reflux disease without esophagitis; E03.9 Hypothyroidism, unspecified; E78.5 Hyperlipidemia, unspecified; Z99.2 Dependence on renal dialysis; Z79.899 Other long term (current) drug therapy; R13.10 Dysphagia, unspecified; Z93.1 Gastrostomy status; F03.90 Unspecified dementia, unspecified severity, without behavioral disturbance, psychotic disturbance, mood disturbance, and anxiety; I69.398 Other sequelae of cerebral infarction; I27.20 Pulmonary hypertension, unspecified
CPT/HCPCS: 36415; 71045-TC; 71250-TC; 80048-TC; 80053-TC; 80076-TC; 80202-TC; 82803-TC; 83735-TC; 83880; 84100-TC; 84484-TC; 85025-TC; 85027-TC; 85730-TC; 87081-TC; 90935-TC; 94760-TC; 94799-TC; A4223; G0378; J0360; J0692; J0885; J3373; J7050; J7060

== ENCOUNTER 2024-10-15 15:36 | Inpatient (IN) | payer MEDICARE, OTHER ==
[~2024-10-15] VITALS: Ht 167.6 cm; Wt 42.2 kg
[~2024-10-15 15:36] MED LIST changes: +AMOX1TAB15 GT; +CEFE1FRO IV; -CEFE2FRO IV; +CLOT15CR27 TP; -EPOE1VIA7 SQ; -LIQUID PROTEIN GT; +NEPRO 1.8 GT; +NYST500P2 TP; +SEVE800T7 GT; +[UNRECOGNIZED DRUG - OTHER] GT; -[UNRECOGNIZED DRUG - REMARK]
[2024-10-15 16:27] LABS: PLATELET COUNT (AUTO) 79 K/uL (150-450); RED BLOOD CELL COUNT(AUTO) 2.69 MIL/uL (4.0-5.2); RED CELL DISTRIBUTION WIDTH 17.6 % (11.5-15.0); WHITE BLOOD COUNT (AUTO) 8.7 K/uL (4.3-11.0)
[2024-10-15 16:32] LABS: CALCIUM, SERUM 10.2 mg/dL (8.5-10.1); CREATININE 3.9 mg/dL (0.6-1.3); SODIUM SERUM 138.0 mmol/L (136-145); UREA NITROGEN, BLOOD 53.0 mg/dL (7-18)
[2024-10-15 16:36] LABS: INR 1.13 (0.91-1.10)
[2024-10-15 16:54] LABS: EOSINOPHILS % (MANUAL) 1 % (0-4); LYMPHOCYTES % (MANUAL) 11 % (16-48); MONOCYTES % (MANUAL) 7 % (0-11.0); NEUTROPHILS % (MANUAL) 81 (42-76); PLATELET ESTIMATE DECREASED
[2024-10-15] MEDS ORDERED: ALBU2.5V13 NEB (17:42)
[2024-10-15] MEDS ORDERED: ALBU1.25 IH (17:42)
[2024-10-15] MEDS ORDERED: MAGNESIUM HYDROXIDE 30 ML UDC PO PRN (18:30)
[2024-10-15] MEDS ORDERED: ONDANSETRON HCL/PF 4 MG/2 ML VIAL IVP PRN (18:30)
[2024-10-15] MEDS ORDERED: ACETAMINOPHEN 325 MG TABLET PO PRN (18:30)
[2024-10-15] MEDS ORDERED: Z GUARD REMEDY 4 OZ OINT TP PRN (18:30)
[2024-10-15] MEDS ORDERED: MAG HYDROX/AL HYDROX/SIMETH 30 ML UDC PO PRN (18:30)
[2024-10-15] MEDS ORDERED: ALBUTEROL FS 2.5 MG/0.5 ML VIAL.NEB NEB PRN (19:00)
[2024-10-15 20:00] VITALS: BP 120/54; TEMP 97.9; O2SAT 95
[2024-10-15] MEDS: ALBUTEROL HALF STRENGTH 1.25 MG/3 ML VIAL.NEB IH SCH (20:52)
[2024-10-15 20:53] VITALS: O2SAT 99
[2024-10-15 21:03] VITALS: O2SAT 99
[2024-10-15 21:05] VITALS: O2SAT 99
[2024-10-15] MEDS: CLOTRIMAZOLE 1% 15 GM TUBE TP SCH (21:16)
[2024-10-15] MEDS: SIMVASTATIN 10 MG TABLET GT SCH (21:17)
[2024-10-16] VITALS (18 sets, daily range): BP systolic 114–156; BP diastolic 43–78; TEMP 97.5–98.2; O2SAT 94–100
[2024-10-16] MEDS: ALBUTEROL HALF STRENGTH 1.25 MG/3 ML VIAL.NEB IH SCH (03:42)
[2024-10-16 06:39] LABS: PLATELET COUNT (AUTO) 97 K/uL (150-450); RED BLOOD CELL COUNT(AUTO) 2.70 MIL/uL (4.0-5.2); RED CELL DISTRIBUTION WIDTH 17.6 % (11.5-15.0); WHITE BLOOD COUNT (AUTO) 6.2 K/uL (4.3-11.0)
[2024-10-16 06:41] LABS: INR 1.12 (0.91-1.10)
[2024-10-16 06:46] LABS: CALCIUM, SERUM 10.5 mg/dL (8.5-10.1); CREATININE 4.8 mg/dL (0.6-1.3); PHOSPHORUS 4.7 mg/dL (2.5-4.9); SODIUM SERUM 140.0 mmol/L (136-145); UREA NITROGEN, BLOOD 60.0 mg/dL (7-18)
[2024-10-16 08:03] LABS: LYMPHOCYTES % (MANUAL) 37 % (16-48); NEUTROPHILS % (MANUAL) 49 (42-76)
[2024-10-16 08:04] LABS: EOSINOPHILS % (MANUAL) 9 % (0-4); MONOCYTES % (MANUAL) 5 % (0-11.0); PLATELET ESTIMATE DECREASED
[2024-10-16] MEDS: VIT B CMPLX 3/FA/VIT C/BIOTIN 1 TAB TABLET GT SCH (09:00)
[2024-10-16] MEDS: SEVELAMER CARBONATE 800 MG TABLET PO SCH (09:00)
[2024-10-16] MEDS: LABETALOL HCL (100MG) 100 MG TABLET GT SCH (09:00)
[2024-10-16] MEDS ORDERED: IOHEXOL 240MG/ML 0 ML IV ONE (11:42)
[2024-10-16] MEDS ORDERED: LIDOCAINE 1% INJ 50 ML MDV IJ ONE (11:43)
[2024-10-16] MEDS ORDERED: HEPARIN SODIUM, PORCINE 1,000 UNIT/ML VIAL ONE ×2 (11:43→11:44)
[2024-10-16] MEDS ORDERED: ALBUTEROL HALF STRENGTH 1.25 MG/3 ML VIAL.NEB IH SCH (19:30)
[2024-10-16] MEDS: ANCEF 1 GM/50 ML D5W IV SCH (19:40)
[2024-10-17] VITALS (17 sets, daily range): BP systolic 110–152; BP diastolic 67–85; TEMP 97.5–98.5; O2SAT 95–100
[2024-10-17] MEDS ORDERED: PHARMACY TO CHANGE PO MEDS TO GT/NG XX PRN (10:00)
[2024-10-17] MEDS ORDERED: MAGNESIUM HYDROXIDE 30 ML UDC GT PRN (10:12)
[2024-10-17] MEDS ORDERED: MAG HYDROX/AL HYDROX/SIMETH 30 ML UDC GT PRN (10:12)
[2024-10-17] MEDS ORDERED: ACETAMINOPHEN 650 MG/20.3 ML UDC GT PRN (10:30)
[2024-10-17] MEDS: SEVELAMER CARBONATE 800 MG POWD.PACK GT SCH (13:41)
[2024-10-17] MEDS: NEPRO 1,000 ML BOTTLE GT PRN (13:44)
[2024-10-18] VITALS (8 sets, daily range): BP systolic 124–156; BP diastolic 57–82; TEMP 97.7–98.1; O2SAT 95–99
[2024-10-18] MEDS ORDERED: NEPRO 1,000 ML BOTTLE GT PRN (10:30)
== END 2024-10-18 16:23 | DRG 698 ==
LOC: ER 15:46 → TELE1 17:07 → MEDSG1 10-17 09:44
PROVIDERS: ADMIT Internal Medicine; ATTEND Internal Medicine
PROC: 5A1D70Z Performance of Urinary Filtration, Intermittent, Less than 6 Hours Per Day (ICD-10-PCS; 2024-10-16)
PROC: 0J2SXYZ Change Other Device in Head and Neck Subcutaneous Tissue and Fascia, External Approach (ICD-10-PCS; principal; 2024-10-16 12:30)
DX: T82.41XA Breakdown (mechanical) of vascular dialysis catheter, initial encounter (principal); N18.6 End stage renal disease; I12.0 Hypertensive chronic kidney disease with stage 5 chronic kidney disease or end stage renal disease; J96.01 Acute respiratory failure with hypoxia; G93.49 Other encephalopathy; Y84.8 Other medical procedures as the cause of abnormal reaction of the patient, or of later complication, without mention of misadventure at the time of the procedure; G40.909 Epilepsy, unspecified, not intractable, without status epilepticus; K21.9 Gastro-esophageal reflux disease without esophagitis; E03.9 Hypothyroidism, unspecified; J45.909 Unspecified asthma, uncomplicated; R13.10 Dysphagia, unspecified; Z93.1 Gastrostomy status; Z99.2 Dependence on renal dialysis; Z86.73 Personal history of transient ischemic attack (TIA), and cerebral infarction without residual deficits; I27.20 Pulmonary hypertension, unspecified; F20.9 Schizophrenia, unspecified; F01.50 Vascular dementia, unspecified severity, without behavioral disturbance, psychotic disturbance, mood disturbance, and anxiety; D63.8 Anemia in other chronic diseases classified elsewhere; D64.9 Anemia, unspecified; E83.9 Disorder of mineral metabolism, unspecified; L22 Diaper dermatitis; L89.890 Pressure ulcer of other site, unstageable; S40.811A Abrasion of right upper arm, initial encounter; X58.XXXA Exposure to other specified factors, initial encounter; Y93.9 Activity, unspecified; Y83.8 Other surgical procedures as the cause of abnormal reaction of the patient, or of later complication, without mention of misadventure at the time of the procedure; R32 Unspecified urinary incontinence; Y71.2 Prosthetic and other implants, materials and accessory cardiovascular devices associated with adverse incidents; Z66 Do not resuscitate; Y92.129 Unspecified place in nursing home as the place of occurrence of the external cause
CPT/HCPCS: 36415; 71045-TC; 80048-TC; 83735-TC; 84100-TC; 85027-TC; 85610-TC; 85730-TC; 86850-TC; 87081-TC; 94799-TC; A4223; A6213; C1750; G0378; J0690; J1644; J2704; J3490; J7030; J7050; J7060; Q9966

== ENCOUNTER 2024-11-11 06:25 | Inpatient (IN) | payer MEDICARE, OTHER ==
[~2024-11-11] VITALS: Ht 152.4 cm; Wt 50.1 kg
[~2024-11-11 06:25] MED LIST changes: +ALBU1.25 IH; +ALBU2.5V13 NEB; -CEFE1FRO IV; -FLUO10TA GT; +NYST15PO4 TP; -NYST500P2 TP
[2024-11-11] MEDS ORDERED: CEFEPIME 1 GM VIAL ONE (06:49)
[2024-11-11] MEDS ORDERED: VANCOMYCIN 1 GM /D5W 250 ML PB IV ONE (06:49)
[2024-11-11] MEDS: IV NS 0.9% 500 ML BAG IV ONE (06:51)
[2024-11-11] MEDS: CEFEPIME 1 GM in IV D5W 50 ML IV ONE (06:51)
[2024-11-11 06:58] LABS: PLATELET COUNT (AUTO) 83 K/uL (150-450); RED BLOOD CELL COUNT(AUTO) 2.79 MIL/uL (4.0-5.2); RED CELL DISTRIBUTION WIDTH 19.7 % (11.5-15.0); WHITE BLOOD COUNT (AUTO) 6.7 K/uL (4.3-11.0)
[2024-11-11] MEDS: ACETAMINOPHEN ES 500 MG TABLET PO ONE (07:08)
[2024-11-11] MEDS ORDERED: ACETAMINOPHEN 325 MG/SUPP.RECT RC ONE (07:08)
[2024-11-11] MEDS: ACETAMINOPHEN 650 MG/SUPP.RECT RC ONE (07:09)
[2024-11-11 07:10] LABS: INR 1.13 (0.91-1.10)
[2024-11-11 07:12] LABS: CALCIUM, SERUM 10.3 mg/dL (8.5-10.1); CREATININE 4.2 mg/dL (0.6-1.3); SODIUM SERUM 134 mmol/L (136-145); UREA NITROGEN, BLOOD 56 mg/dL (7-18)
[2024-11-11 07:16] LABS: ASPARTATE AMINOTRANSFERASE 26 U/L (15-37); TOTAL PROTEIN, SERUM 7.6 g/dL (6.4-8.2)
[2024-11-11 07:24] LABS: LACTIC ACID 1.9 mmol/L (0.4-2.0)
[2024-11-11 07:28] LABS: BASOPHILS % (MANUAL) 0 % (0.0-2.0); EOSINOPHILS % (MANUAL) 0 % (0-4); LYMPHOCYTES % (MANUAL) 9 % (16-48); MONOCYTES % (MANUAL) 4 % (0-11.0); NEUTROPHILS % (MANUAL) 87 (42-76); PLATELET ESTIMATE DECREASED
[2024-11-11] MEDS: VANCOMYCIN 1 GM in IV D5W 250 ML IV ONE (07:46)
[2024-11-11] MEDS ORDERED: KETOROLAC TROMETHAMINE 15 MG/ML VIAL ONE (09:24)
[2024-11-11] MEDS: KETOROLAC TROMETHAMINE 15 MG/ML VIAL IV ONE (09:28)
[2024-11-11 10:20] VITALS: BP 145/64; TEMP 101.1; O2SAT 99
[2024-11-11 12:00] VITALS: BP 110/56; TEMP 99; O2SAT 100
[2024-11-11] MEDS ORDERED: Z GUARD REMEDY 4 OZ OINT TP PRN (12:30)
[2024-11-11] MEDS ORDERED: DOSING PER PHARMACY-VANCOMYCIN IV XX PRN (12:30)
[2024-11-11] MEDS ORDERED: DOSING PER PHARMACY-CEFEPIME IVPB XX PRN (12:30)
[2024-11-11] MEDS ORDERED: ONDANSETRON HCL/PF 4 MG/2 ML VIAL IVP PRN (12:30)
[2024-11-11] MEDS ORDERED: VANCOMYCIN 500 MG in IV D5W 100 ML IV SCH (14:30)
[2024-11-11] MEDS: MEROPENEM 500 MG in IV NS 0.9% 50 ML IV SCH (15:47)
[2024-11-11] MEDS: IV 1/2NS 1000 ML 1,000 ML IV PRN (15:47)
[2024-11-11 16:00] VITALS: BP 136/53; TEMP 97.7; O2SAT 98
[2024-11-11 20:00] VITALS: BP 139/59; TEMP 98.8; O2SAT 95
[2024-11-11] MEDS: HEPARIN SODIUM, PORCINE 5000 UNITS/1 ML VIAL SQ SCH (21:29)
[2024-11-11] MEDS: NEPRO 1,000 ML BOTTLE GT PRN (21:32)
[2024-11-11] MEDS ORDERED: CEFEPIME 1 GM in IV D5W 50 ML IV SCH (23:00)
[2024-11-12 00:33] VITALS: BP 138/63; TEMP 97.9; O2SAT 99
[2024-11-12 04:14] VITALS: BP 132/64; TEMP 97.9; O2SAT 98
[2024-11-12 06:54] LABS: PLATELET COUNT (AUTO) 80 K/uL (150-450); RED BLOOD CELL COUNT(AUTO) 2.23 MIL/uL (4.0-5.2); RED CELL DISTRIBUTION WIDTH 20.0 % (11.5-15.0); WHITE BLOOD COUNT (AUTO) 4.0 K/uL (4.3-11.0)
[2024-11-12 07:38] LABS: EOSINOPHILS % (MANUAL) 1 % (0-4); LYMPHOCYTES % (MANUAL) 10 % (16-48); MONOCYTES % (MANUAL) 7 % (0-11.0); NEUTROPHILS % (MANUAL) 82 (42-76); PLATELET ESTIMATE DECREASED
[2024-11-12] MEDS: PANTOPRAZOLE 40 MG TABLET.DR PO SCH (07:47)
[2024-11-12] MEDS ORDERED: APIX5TAB GT (08:15)
[2024-11-12] MEDS ORDERED: AMLO-213 GT (08:15)
[2024-11-12 08:24] LABS: CALCIUM, SERUM 9.7 mg/dL (8.5-10.1); CREATININE 5.5 mg/dL (0.6-1.3); PHOSPHORUS 2.5 mg/dL (2.5-4.9); SODIUM SERUM 135.0 mmol/L (136-145); UREA NITROGEN, BLOOD 72.0 mg/dL (7-18)
[2024-11-12 08:44] LABS: LDL 26.0 mg/dL (0-99)
[2024-11-12] MEDS ORDERED: EPOETIN ALFA (10,000 UNIT) 10,000 UNIT/ML VIAL SQ SCH (15:00)
[2024-11-12 16:00] VITALS: BP 130/57; TEMP 97.6; O2SAT 97
[2024-11-12 20:00] VITALS: BP 149/64; TEMP 98.8; O2SAT 97
[2024-11-13] VITALS: BP 152/65; TEMP 99.3; O2SAT 98
[2024-11-13] MEDS: NEPRO 1,000 ML BOTTLE GT PRN (02:49)
[2024-11-13 04:00] VITALS: BP 131/75; TEMP 98.6; O2SAT 97
[2024-11-13 06:59] LABS: RED CELL DISTRIBUTION WIDTH 19.7 % (11.5-15.0); WHITE BLOOD COUNT (AUTO) 3.8 K/uL (4.3-11.0)
[2024-11-13 07:12] LABS: PLATELET COUNT (AUTO) 106 K/uL (150-450); RED BLOOD CELL COUNT(AUTO) 2.25 MIL/uL (4.0-5.2)
[2024-11-13 07:27] LABS: ASPARTATE AMINOTRANSFERASE 20.0 U/L (15-37); CALCIUM, SERUM 9.2 mg/dL (8.5-10.1); CREATININE 3.8 mg/dL (0.6-1.3); PHOSPHORUS 1.7 mg/dL (2.5-4.9); SODIUM SERUM 136.0 mmol/L (136-145); TOTAL PROTEIN, SERUM 6.0 g/dL (6.4-8.2); UREA NITROGEN, BLOOD 44.0 mg/dL (7-18)
[2024-11-13] MEDS ORDERED: PANTOPRAZOLE 40 MG/PACK PACK GT SCH (09:00)
[2024-11-13 12:00] VITALS: BP 142/69; TEMP 98.2; O2SAT 97
[2024-11-13 12:36] LABS: EOSINOPHILS % (MANUAL) 4 % (0-4); LYMPHOCYTES % (MANUAL) 10 % (16-48); MONOCYTES % (MANUAL) 7 % (0-11.0); NEUTROPHILS % (MANUAL) 79 (42-76); PLATELET ESTIMATE DECREASED
[2024-11-13 16:00] VITALS: BP 114/61; TEMP 98.1; O2SAT 97
[2024-11-13] MEDS: EPOETIN ALFA (10,000 UNIT) 10,000 UNIT/ML VIAL SQ SCH (16:11)
[2024-11-13 20:00] VITALS: BP 107/55; TEMP 100.6; O2SAT 98
[2024-11-13] MEDS: VANCOMYCIN 500 MG in IV D5W 100 ML IV PRN (20:04)
[2024-11-13] MEDS: ACETAMINOPHEN 325 MG TABLET PO PRN (20:39)
[2024-11-14] VITALS: BP 107/66; TEMP 99.3; O2SAT 98
[2024-11-14] MEDS: IV 1/2NS 1000 ML 1,000 ML IV PRN (01:39)
[2024-11-14 04:00] VITALS: BP 108/52; TEMP 98.4; O2SAT 100
[2024-11-14 07:25] LABS: PLATELET COUNT (AUTO) 131 K/uL (150-450); RED BLOOD CELL COUNT(AUTO) 2.43 MIL/uL (4.0-5.2); RED CELL DISTRIBUTION WIDTH 19.2 % (11.5-15.0); WHITE BLOOD COUNT (AUTO) 3.4 K/uL (4.3-11.0)
[2024-11-14 07:40] LABS: ASPARTATE AMINOTRANSFERASE 24.0 U/L (15-37); CALCIUM, SERUM 9.2 mg/dL (8.5-10.1); CREATININE 2.7 mg/dL (0.6-1.3); PHOSPHORUS 1.9 mg/dL (2.5-4.9); SODIUM SERUM 139.0 mmol/L (136-145); TOTAL PROTEIN, SERUM 6.4 g/dL (6.4-8.2); UREA NITROGEN, BLOOD 28.0 mg/dL (7-18)
[2024-11-14 08:00] VITALS: BP 136/51; TEMP 97.9; O2SAT 98
[2024-11-14] MEDS: PANTOPRAZOLE 40 MG/PACK PACK GT SCH (09:18)
[2024-11-14] MEDS: MUPIROCIN OINT 2% 22 GM TUBE NS SCH (09:18)
[2024-11-14] MEDS ORDERED: POTASSIUM CHLORIDE 20 MEQ POWDER PACKET GT SCH (11:30)
[2024-11-14 12:00] VITALS: BP 149/71; TEMP 98.4; O2SAT 96
[2024-11-14] MEDS: POTASSIUM CHLORIDE 20 MEQ POWDER PACKET GT ONE (15:37)
[2024-11-14 16:00] VITALS: BP 146/65; TEMP 98.1; O2SAT 96
[2024-11-14 20:00] VITALS: BP 143/51; TEMP 98.6; O2SAT 93
[2024-11-15] VITALS: BP 136/61; TEMP 98.5; O2SAT 96
[2024-11-15 04:00] VITALS: BP 150/61; TEMP 98.4; O2SAT 96
[2024-11-15 07:27] LABS: PLATELET COUNT (AUTO) 196 K/uL (150-450); RED BLOOD CELL COUNT(AUTO) 2.56 MIL/uL (4.0-5.2); RED CELL DISTRIBUTION WIDTH 19.9 % (11.5-15.0); WHITE BLOOD COUNT (AUTO) 5.0 K/uL (4.3-11.0)
[2024-11-15 07:59] LABS: ASPARTATE AMINOTRANSFERASE 21.0 U/L (15-37); CALCIUM, SERUM 9.7 mg/dL (8.5-10.1); CREATININE 4.0 mg/dL (0.6-1.3); PHOSPHORUS 1.8 mg/dL (2.5-4.9); SODIUM SERUM 136.0 mmol/L (136-145); TOTAL PROTEIN, SERUM 6.5 g/dL (6.4-8.2); UREA NITROGEN, BLOOD 45.0 mg/dL (7-18)
[2024-11-15 08:00] VITALS: BP 124/19; TEMP 98.1; O2SAT 95
[2024-11-15 12:00] VITALS: BP 155/57; TEMP 97.9; O2SAT 99
[2024-11-15 16:00] VITALS: BP 135/68; TEMP 98.2; O2SAT 97
[2024-11-15 20:00] VITALS: BP 130/52; TEMP 99; O2SAT 100
[2024-11-15] MEDS ORDERED: GELATIN SPONGE,ABSORBABLE 1 EA SPONGE TP ONE (22:41)
[2024-11-16] VITALS: BP 102/48; TEMP 99; O2SAT 99
[2024-11-16 04:00] VITALS: BP 108/43; TEMP 99; O2SAT 96
[2024-11-16 07:23] LABS: CALCIUM, SERUM 9.0 mg/dL (8.5-10.1); CREATININE 3.0 mg/dL (0.6-1.3); SODIUM SERUM 140.0 mmol/L (136-145); UREA NITROGEN, BLOOD 30.0 mg/dL (7-18)
[2024-11-16 08:00] VITALS: BP 126/55; TEMP 97.7; O2SAT 100
[2024-11-16 12:00] VITALS: BP 127/55; TEMP 97.5; O2SAT 99
[2024-11-16 16:00] VITALS: BP 121/50; TEMP 98.2; O2SAT 98
[2024-11-16 20:00] VITALS: BP 148/81; TEMP 98.8; O2SAT 97
[2024-11-17] VITALS: BP 152/80; TEMP 98.4; O2SAT 98
[2024-11-17 04:00] VITALS: BP 158/79; TEMP 98.2; O2SAT 98
[2024-11-17 08:00] VITALS: BP 155/56; TEMP 97.1; O2SAT 97
[2024-11-17 08:00] LABS: CALCIUM, SERUM 10.0 mg/dL (8.5-10.1); CREATININE 4.3 mg/dL (0.6-1.3); SODIUM SERUM 142.0 mmol/L (136-145); UREA NITROGEN, BLOOD 46.0 mg/dL (7-18)
[2024-11-17 12:00] VITALS: BP 159/72; TEMP 98.2; O2SAT 99
[2024-11-17 16:00] VITALS: BP 149/82; TEMP 98.2; O2SAT 99
[2024-11-17] MEDS: CLONIDINE HCL 0.1 MG TABLET PO ONE (18:47)
[2024-11-17 20:00] VITALS: BP 141/84; TEMP 98.6; O2SAT 98
[2024-11-18] VITALS (10 sets, daily range): BP systolic 90–151; BP diastolic 45–96; TEMP 97.5–98.3; O2SAT 95–98
[2024-11-18] MEDS ORDERED: OLANZAPINE 10 MG VIAL IM ONE
[2024-11-18 07:14] LABS: CALCIUM, SERUM 9.7 mg/dL (8.5-10.1); CREATININE 3.6 mg/dL (0.6-1.3); SODIUM SERUM 142.0 mmol/L (136-145); UREA NITROGEN, BLOOD 29.0 mg/dL (7-18)
[2024-11-18 14:18] LABS: PLATELET COUNT (AUTO) 190 K/uL (150-450); RED CELL DISTRIBUTION WIDTH 20.3 % (11.5-15.0); WHITE BLOOD COUNT (AUTO) 5.3 K/uL (4.3-11.0)
[2024-11-18 14:21] LABS: RED BLOOD CELL COUNT(AUTO) 1.99 MIL/uL (4.0-5.2)
[2024-11-18 18:36] LABS: EOSINOPHILS % (MANUAL) 6 % (0-4); LYMPHOCYTES % (MANUAL) 35 % (16-48); MONOCYTES % (MANUAL) 6 % (0-11.0); NEUTROPHILS % (MANUAL) 53 (42-76)
[2024-11-18 18:37] LABS: PLATELET ESTIMATE ADEQUATE
[2024-11-19 00:25] VITALS: BP 124/50; TEMP 98.1
[2024-11-19 01:25] VITALS: BP 119/52; TEMP 98
[2024-11-19 02:25] VITALS: BP 106/57; TEMP 98
[2024-11-19 07:25] LABS: CALCIUM, SERUM 9.2 mg/dL (8.5-10.1); CREATININE 4.8 mg/dL (0.6-1.3); SODIUM SERUM 145.0 mmol/L (136-145); UREA NITROGEN, BLOOD 52.0 mg/dL (7-18)
[2024-11-19 08:00] VITALS: BP 147/66; TEMP 97.9; O2SAT 100
[2024-11-19 08:37] LABS: PLATELET COUNT (AUTO) 216 K/uL (150-450); RED BLOOD CELL COUNT(AUTO) 2.36 MIL/uL (4.0-5.2); RED CELL DISTRIBUTION WIDTH 17.7 % (11.5-15.0); WHITE BLOOD COUNT (AUTO) 6.9 K/uL (4.3-11.0)
[2024-11-19 16:00] VITALS: BP 158/89; TEMP 98.2; O2SAT 99
== END 2024-11-19 22:00 | DRG 314 ==
LOC: ER 06:27 → TELE1 09:50 → MEDSG1 11-18 09:43
PROC: 5A1D70Z Performance of Urinary Filtration, Intermittent, Less than 6 Hours Per Day (ICD-10-PCS; 2024-11-12)
PROC: 05HB33Z Insertion of Infusion Device into Right Basilic Vein, Percutaneous Approach (ICD-10-PCS; principal; 2024-11-15)
PROC: 30233N1 Transfusion of Nonautologous Red Blood Cells into Peripheral Vein, Percutaneous Approach (ICD-10-PCS; 2024-11-18)
DX: T80.211A Bloodstream infection due to central venous catheter, initial encounter (principal); A41.59 Other Gram-negative sepsis; N18.6 End stage renal disease; I13.2 Hypertensive heart and chronic kidney disease with heart failure and with stage 5 chronic kidney disease, or end stage renal disease; F03.918 Unspecified dementia, unspecified severity, with other behavioral disturbance; G93.49 Other encephalopathy; E87.1 Hypo-osmolality and hyponatremia; G40.909 Epilepsy, unspecified, not intractable, without status epilepticus; E78.5 Hyperlipidemia, unspecified; I27.20 Pulmonary hypertension, unspecified; I50.9 Heart failure, unspecified; Z99.2 Dependence on renal dialysis; Z20.822 Contact with and (suspected) exposure to COVID-19; Z86.73 Personal history of transient ischemic attack (TIA), and cerebral infarction without residual deficits; K21.9 Gastro-esophageal reflux disease without esophagitis; R13.10 Dysphagia, unspecified; E03.9 Hypothyroidism, unspecified; G62.9 Polyneuropathy, unspecified; F20.9 Schizophrenia, unspecified; F32.A Depression, unspecified; M85.80 Other specified disorders of bone density and structure, unspecified site; Z74.01 Bed confinement status; Z79.899 Other long term (current) drug therapy; Z86.19 Personal history of other infectious and parasitic diseases; Z87.440 Personal history of urinary (tract) infections; M89.8X9 Other specified disorders of bone, unspecified site; Z93.1 Gastrostomy status; Z79.51 Long term (current) use of inhaled steroids; D63.8 Anemia in other chronic diseases classified elsewhere; R19.7 Diarrhea, unspecified; Y84.8 Other medical procedures as the cause of abnormal reaction of the patient, or of later complication, without mention of misadventure at the time of the procedure; Y92.129 Unspecified place in nursing home as the place of occurrence of the external cause
CPT/HCPCS: 36410; 36415; 71045-TC; 80048-TC; 80053-TC; 80061-TC; 80076-TC; 80202-TC; 83605-TC; 83735-TC; 84100-TC; 84443-TC; 84484-TC; 85025-TC; 85027-TC; 85730-TC; 86850-TC; 87040-TC; 87081-TC; 87186-TC; 90935-TC; 93971-TC; A4223; G0378; J0692; J0885; J1644; J1885; J2185; J3373; J3490; J7030; J7040; J7050; J7060; P9016

== ENCOUNTER 2024-11-21 15:09 | Inpatient (IN) | payer MEDICARE, OTHER ==
[~2024-11-21] VITALS: Ht 157.5 cm; Wt 48.5 kg
[~2024-11-21 15:09] MED LIST changes: +AMLO-213 GT; -AMOX1TAB15 GT; +APIX5TAB GT; -CLOT15CR27 TP; -[UNRECOGNIZED DRUG - OTHER] GT
[2024-11-21 16:03] LABS: PLATELET COUNT (AUTO) 178 K/uL (150-450); RED BLOOD CELL COUNT(AUTO) 2.24 MIL/uL (4.0-5.2); RED CELL DISTRIBUTION WIDTH 17.9 % (11.5-15.0); WHITE BLOOD COUNT (AUTO) 8.6 K/uL (4.3-11.0)
[2024-11-21 16:08] LABS: CALCIUM, SERUM 10.1 mg/dL (8.5-10.1); CREATININE 3.3 mg/dL (0.6-1.3); SODIUM SERUM 131.0 mmol/L (136-145); UREA NITROGEN, BLOOD 45.0 mg/dL (7-18)
[2024-11-21 16:14] LABS: ASPARTATE AMINOTRANSFERASE 25.0 U/L (15-37); TOTAL PROTEIN, SERUM 6.7 g/dL (6.4-8.2)
[2024-11-21 16:24] LABS: INR 1.09 (0.91-1.10)
[2024-11-21] MEDS ORDERED: PANT40TA49 GT (17:03)
[2024-11-21 17:10] LABS: BASOPHILS % (MANUAL) 0 % (0.0-2.0); EOSINOPHILS % (MANUAL) 1 % (0-4); LYMPHOCYTES % (MANUAL) 23 % (16-48); MONOCYTES % (MANUAL) 4 % (0-11.0); NEUTROPHILS % (MANUAL) 72 (42-76); PLATELET ESTIMATE ADEQUATE
[2024-11-21] MEDS ORDERED: SEVELAMER CARBONATE 800 MG TABLET PO SCH (19:00)
[2024-11-21] MEDS ORDERED: ONDANSETRON HCL/PF 4 MG/2 ML VIAL IVP PRN (19:00)
[2024-11-21] MEDS ORDERED: ACETAMINOPHEN 325 MG TABLET PO PRN (19:00)
[2024-11-21 20:30] VITALS: BP 143/61; TEMP 98.2; O2SAT 100
[2024-11-21] MEDS: SEVELAMER CARBONATE 800 MG POWD.PACK GT SCH (21:07)
[2024-11-21] MEDS: SIMVASTATIN 10 MG TABLET GT SCH (22:00)
[2024-11-21] MEDS: LABETALOL HCL (100MG) 100 MG TABLET GT SCH (22:41)
[2024-11-21] MEDS: ACETAMINOPHEN 650 MG/20.3 ML UDC GT ONE (22:42)
[2024-11-21] MEDS: diphenhydrAMINE HCL ELIX 25 MG/10 ML UDC GT ONE (22:42)
[2024-11-21 23:40] VITALS: BP 120/60; TEMP 97.5
[2024-11-22] VITALS (7 sets, daily range): BP systolic 111–153; BP diastolic 47–71; TEMP 97.9–98.6; O2SAT 94–97
[2024-11-22 08:12] LABS: CALCIUM, SERUM 10.2 mg/dL (8.5-10.1); CREATININE 4.2 mg/dL (0.6-1.3); PHOSPHORUS 4.7 mg/dL (2.5-4.9); SODIUM SERUM 137.0 mmol/L (136-145); UREA NITROGEN, BLOOD 52.0 mg/dL (7-18)
[2024-11-22] MEDS: AMLODIPINE BESYLATE 10 MG TABLET GT SCH (08:48)
[2024-11-22] MEDS: VIT B CMPLX 3/FA/VIT C/BIOTIN 1 TAB TABLET PO SCH (08:48)
[2024-11-22] MEDS: PANTOPRAZOLE 40 MG/PACK PACK GT SCH (08:54)
[2024-11-22] MEDS ORDERED: PANTOPRAZOLE 40 MG TABLET.DR PO SCH (09:00)
[2024-11-22 09:03] LABS: PLATELET COUNT (AUTO) 181 K/uL (150-450); RED BLOOD CELL COUNT(AUTO) 2.75 MIL/uL (4.0-5.2); RED CELL DISTRIBUTION WIDTH 16.5 % (11.5-15.0); WHITE BLOOD COUNT (AUTO) 7.6 K/uL (4.3-11.0)
[2024-11-22] MEDS: SEVELAMER CARBONATE 800 MG POWD.PACK GT SCH (10:16)
[2024-11-22] MEDS: EPOETIN ALFA (10,000 UNIT) 10,000 UNIT/ML VIAL IV SCH (15:27)
[2024-11-22] MEDS: NEPRO 1,000 ML BOTTLE GT PRN (16:35)
[2024-11-23 07:37] LABS: PLATELET COUNT (AUTO) 168 K/uL (150-450); RED BLOOD CELL COUNT(AUTO) 2.73 MIL/uL (4.0-5.2); RED CELL DISTRIBUTION WIDTH 16.7 % (11.5-15.0); WHITE BLOOD COUNT (AUTO) 5.9 K/uL (4.3-11.0)
[2024-11-23 08:00] VITALS: BP 145/81; TEMP 97.9; O2SAT 96
[2024-11-23 08:08] LABS: ASPARTATE AMINOTRANSFERASE 21.0 U/L (15-37); CALCIUM, SERUM 9.6 mg/dL (8.5-10.1); CREATININE 3.1 mg/dL (0.6-1.3); PHOSPHORUS 3.2 mg/dL (2.5-4.9); SODIUM SERUM 140.0 mmol/L (136-145); TOTAL PROTEIN, SERUM 6.8 g/dL (6.4-8.2); UREA NITROGEN, BLOOD 30.0 mg/dL (7-18)
[2024-11-23 16:00] VITALS: BP 144/63; TEMP 97.9; O2SAT 97
[2024-11-23 20:00] VITALS: BP 108/44; TEMP 98.4; O2SAT 94
[2024-11-24 08:00] VITALS: BP 130/54; TEMP 98.2; O2SAT 97
[2024-11-24 16:00] VITALS: BP 115/69; TEMP 97.9; O2SAT 98
[2024-11-24 20:00] VITALS: BP 130/78; TEMP 98.1; O2SAT 97
[2024-11-24 21:08] VITALS: BP 149/98; TEMP 98.1; O2SAT 97
[2024-12-07] MEDS ORDERED: GENT70PI2 IV (11:52)
== END 2024-11-24 22:50 | DRG 811 ==
LOC: ER 15:14 → TELE 18:46 → MED 19:55
PROVIDERS: ADMIT Nurse Practitioner Acute Care; ATTEND Nurse Practitioner Acute Care
PROC: 30233N1 Transfusion of Nonautologous Red Blood Cells into Peripheral Vein, Percutaneous Approach (ICD-10-PCS; principal; 2024-11-21)
PROC: 5A1D70Z Performance of Urinary Filtration, Intermittent, Less than 6 Hours Per Day (ICD-10-PCS; 2024-11-22)
DX: D64.9 Anemia, unspecified (principal); G93.41 Metabolic encephalopathy; N18.6 End stage renal disease; E44.0 Moderate protein-calorie malnutrition; I12.0 Hypertensive chronic kidney disease with stage 5 chronic kidney disease or end stage renal disease; E87.1 Hypo-osmolality and hyponatremia; Z66 Do not resuscitate; E78.5 Hyperlipidemia, unspecified; E03.9 Hypothyroidism, unspecified; Z86.73 Personal history of transient ischemic attack (TIA), and cerebral infarction without residual deficits; G40.909 Epilepsy, unspecified, not intractable, without status epilepticus; F03.90 Unspecified dementia, unspecified severity, without behavioral disturbance, psychotic disturbance, mood disturbance, and anxiety; M62.58 Muscle wasting and atrophy, not elsewhere classified, other site; Z99.2 Dependence on renal dialysis; Z93.1 Gastrostomy status; K21.9 Gastro-esophageal reflux disease without esophagitis; R13.10 Dysphagia, unspecified; E88.09 Other disorders of plasma-protein metabolism, not elsewhere classified; I27.20 Pulmonary hypertension, unspecified; G62.9 Polyneuropathy, unspecified; Z79.899 Other long term (current) drug therapy; Z79.01 Long term (current) use of anticoagulants; Z79.51 Long term (current) use of inhaled steroids; Z74.01 Bed confinement status; M89.8X9 Other specified disorders of bone, unspecified site; F20.9 Schizophrenia, unspecified
CPT/HCPCS: 36415; 71045-TC; 80048-TC; 80053-TC; 80076-TC; 83735-TC; 84100-TC; 85025-TC; 85027-TC; 85730-TC; 86850-TC; 87081-TC; 90935-TC; 93971-TC; A4217; A4223; G0378; J0885; J7030; J7040; P9016; Q0163

== ENCOUNTER 2024-12-02 05:02 | Inpatient (IN) | payer MEDICARE, OTHER ==
[~2024-12-02] VITALS: Ht 157.5 cm; Wt 55.8 kg
[2024-12-02] VITALS (12 sets, daily range): BP systolic 105–133; BP diastolic 52–76; TEMP 97.3–99.7; O2SAT 92–99
[~2024-12-02 05:02] MED LIST changes: -NYST15PO4 TP; +PANT40TA49 GT
[2024-12-02 06:12] LABS: PLATELET COUNT (AUTO) 167 K/uL (150-450); RED BLOOD CELL COUNT(AUTO) 2.70 MIL/uL (4.0-5.2); RED CELL DISTRIBUTION WIDTH 16.9 % (11.5-15.0); WHITE BLOOD COUNT (AUTO) 7.6 K/uL (4.3-11.0)
[2024-12-02] MEDS: IV NS 0.9% 1,000 ML BAG IV ONE ×2 (06:17→06:23)
[2024-12-02 06:20] LABS: CALCIUM, SERUM 10.4 mg/dL (8.5-10.1); CREATININE 6.4 mg/dL (0.6-1.3); SODIUM SERUM 125.0 mmol/L (136-145)
[2024-12-02 06:25] LABS: ASPARTATE AMINOTRANSFERASE 16.0 U/L (15-37); TOTAL PROTEIN, SERUM 6.7 g/dL (6.4-8.2)
[2024-12-02 06:36] LABS: UREA NITROGEN, BLOOD 97.0 mg/dL (7-18)
[2024-12-02 06:42] LABS: INR 1.1 (0.91-1.10)
[2024-12-02 06:46] LABS: LACTIC ACID 0.9 mmol/L (0.4-2.0)
[2024-12-02] MEDS ORDERED: CEFEPIME 1 GM VIAL ONE (06:48)
[2024-12-02] MEDS ORDERED: VANCOMYCIN 1 GM /D5W 250 ML PB IV ONE (06:48)
[2024-12-02] MEDS ORDERED: ACETAMINOPHEN 325 MG TABLET ONE (06:49)
[2024-12-02 06:55] LABS: ASPARTATE AMINOTRANSFERASE 16 U/L (15-37); CALCIUM, SERUM 10.3 mg/dL (8.5-10.1); CREATININE 6.3 mg/dL (0.6-1.3); SODIUM SERUM 125 mmol/L (136-145); TOTAL PROTEIN, SERUM 6.8 g/dL (6.4-8.2); UREA NITROGEN, BLOOD 95 mg/dL (7-18)
[2024-12-02] MEDS: CEFEPIME 1 GM in IV D5W 50 ML IV ONE (07:09)
[2024-12-02] MEDS: ACETAMINOPHEN SUSP 80 MG/0.8 ML BOTTLE GT STA (07:09)
[2024-12-02] MEDS: VANCOMYCIN 1 GM in IV D5W 250 ML IV ONE (07:19)
[2024-12-02] MEDS ORDERED: MAGNESIUM HYDROXIDE 30 ML UDC PO PRN (12:30)
[2024-12-02] MEDS ORDERED: DOSING PER PHARMACY-VANCOMYCIN IV XX PRN (12:30)
[2024-12-02] MEDS ORDERED: DOSING PER PHARMACY-CEFEPIME IVPB XX PRN (12:30)
[2024-12-02] MEDS ORDERED: Z GUARD REMEDY 4 OZ OINT TP PRN (12:30)
[2024-12-02] MEDS ORDERED: MAG HYDROX/AL HYDROX/SIMETH 30 ML UDC PO PRN (12:30)
[2024-12-02] MEDS ORDERED: ACETAMINOPHEN 325 MG TABLET PO PRN (12:30)
[2024-12-02] MEDS ORDERED: ONDANSETRON HCL/PF 4 MG/2 ML VIAL IVP PRN (12:30)
[2024-12-02] MEDS ORDERED: ZOLPIDEM TARTRATE 5 MG TABLET PO PRN (12:30)
[2024-12-02] MEDS: CEFEPIME 1 GM in IV D5W 50 ML IV SCH (14:03)
[2024-12-02] MEDS: SEVELAMER CARBONATE 800 MG TABLET PO SCH (17:56)
[2024-12-02] MEDS: LABETALOL HCL (100MG) 100 MG TABLET GT SCH (17:56)
[2024-12-02] MEDS: APIXABAN 5 MG TABLET GT SCH (18:00)
[2024-12-02] MEDS ORDERED: ALBUTEROL FS 2.5 MG/0.5 ML VIAL.NEB NEB PRN (19:30)
[2024-12-02] MEDS: ALBUTEROL HALF STRENGTH 1.25 MG/3 ML VIAL.NEB IH SCH (20:11)
[2024-12-02] MEDS: SIMVASTATIN 10 MG TABLET GT SCH (22:15)
[2024-12-03] VITALS (17 sets, daily range): BP systolic 105–124; BP diastolic 44–65; TEMP 97.2–99.3; O2SAT 94–100
[2024-12-03] MEDS: NEPRO 1,000 ML BOTTLE GT PRN (01:00)
[2024-12-03 06:25] LABS: PLATELET COUNT (AUTO) 142 K/uL (150-450); RED BLOOD CELL COUNT(AUTO) 2.45 MIL/uL (4.0-5.2); RED CELL DISTRIBUTION WIDTH 17.3 % (11.5-15.0); WHITE BLOOD COUNT (AUTO) 5.4 K/uL (4.3-11.0)
[2024-12-03 06:33] LABS: CALCIUM, SERUM 9.7 mg/dL (8.5-10.1); CREATININE 7.0 mg/dL (0.6-1.3); PHOSPHORUS 3.9 mg/dL (2.5-4.9); SODIUM SERUM 126.0 mmol/L (136-145)
[2024-12-03 06:41] LABS: UREA NITROGEN, BLOOD 104.0 mg/dL (7-18)
[2024-12-03] MEDS ORDERED: ZOLPIDEM TARTRATE 5 MG TABLET GT PRN (06:49)
[2024-12-03] MEDS ORDERED: MAG HYDROX/AL HYDROX/SIMETH 30 ML UDC GT PRN (06:49)
[2024-12-03] MEDS ORDERED: MAGNESIUM HYDROXIDE 30 ML UDC GT PRN (06:49)
[2024-12-03] MEDS ORDERED: ACETAMINOPHEN 650 MG/20.3 ML UDC GT PRN (07:00)
[2024-12-03] MEDS ORDERED: PANTOPRAZOLE 40 MG TABLET.DR PO SCH (09:00)
[2024-12-03] MEDS: AMLODIPINE BESYLATE 10 MG TABLET GT SCH (09:38)
[2024-12-03] MEDS: VIT B CMPLX 3/FA/VIT C/BIOTIN 1 TAB TABLET GT SCH (09:41)
[2024-12-03] MEDS: PANTOPRAZOLE 40 MG TABLET.DR PO SCH (09:42)
[2024-12-03] MEDS: SEVELAMER CARBONATE 800 MG POWD.PACK GT SCH (09:50)
[2024-12-03] MEDS: EPOETIN ALFA (10,000 UNIT) 10,000 UNIT/ML VIAL SQ SCH (15:49)
[2024-12-03] MEDS: VANCOMYCIN POST DIALYSIS 500MG IV PRN (22:27)
[2024-12-04] VITALS (17 sets, daily range): BP systolic 119–134; BP diastolic 53–58; TEMP 97.9–98.4; O2SAT 94–100
[2024-12-04 06:33] LABS: PLATELET COUNT (AUTO) 177 K/uL (150-450); RED BLOOD CELL COUNT(AUTO) 2.52 MIL/uL (4.0-5.2); RED CELL DISTRIBUTION WIDTH 17.3 % (11.5-15.0); WHITE BLOOD COUNT (AUTO) 4.4 K/uL (4.3-11.0)
[2024-12-04 06:47] LABS: ASPARTATE AMINOTRANSFERASE 18.0 U/L (15-37); CALCIUM, SERUM 8.9 mg/dL (8.5-10.1); CREATININE 4.0 mg/dL (0.6-1.3); PHOSPHORUS 1.4 mg/dL (2.5-4.9); SODIUM SERUM 134.0 mmol/L (136-145); TOTAL PROTEIN, SERUM 6.3 g/dL (6.4-8.2); UREA NITROGEN, BLOOD 50.0 mg/dL (7-18)
[2024-12-05] VITALS (11 sets, daily range): BP systolic 90–153; BP diastolic 60–78; TEMP 97.3–99.1; O2SAT 96–100
[2024-12-05 07:37] LABS: CALCIUM, SERUM 9.8 mg/dL (8.5-10.1); CREATININE 5.5 mg/dL (0.6-1.3); SODIUM SERUM 136.0 mmol/L (136-145); UREA NITROGEN, BLOOD 67.0 mg/dL (7-18)
[2024-12-05 07:49] LABS: PLATELET COUNT (AUTO) 185 K/uL (150-450); RED BLOOD CELL COUNT(AUTO) 2.60 MIL/uL (4.0-5.2); RED CELL DISTRIBUTION WIDTH 17.5 % (11.5-15.0); WHITE BLOOD COUNT (AUTO) 4.0 K/uL (4.3-11.0)
[2024-12-05 07:59] LABS: PHOSPHORUS 2.3 mg/dL (2.5-4.9)
[2024-12-05] MEDS ORDERED: DOSING PER PHARMACY-GENTAMICIN IV XX PRN (16:30)
[2024-12-05] MEDS: D5W IV ONE (20:34)
[2024-12-05] MEDS: GENTAMICIN IV ONE (20:34)
[2024-12-06] VITALS (14 sets, daily range): BP systolic 111–160; BP diastolic 47–68; TEMP 97.5–98.8; O2SAT 96–100
[2024-12-06 07:51] LABS: CALCIUM, SERUM 9.7 mg/dL (8.5-10.1); CREATININE 3.6 mg/dL (0.6-1.3); PHOSPHORUS 1.7 mg/dL (2.5-4.9); SODIUM SERUM 133.0 mmol/L (136-145); UREA NITROGEN, BLOOD 43.0 mg/dL (7-18)
[2024-12-06 08:01] LABS: PLATELET COUNT (AUTO) 179 K/uL (150-450); RED BLOOD CELL COUNT(AUTO) 2.92 MIL/uL (4.0-5.2); RED CELL DISTRIBUTION WIDTH 17.2 % (11.5-15.0); WHITE BLOOD COUNT (AUTO) 5.5 K/uL (4.3-11.0)
[2024-12-07] VITALS (16 sets, daily range): BP systolic 113–144; BP diastolic 58–70; TEMP 97.5–98.1; O2SAT 95–100
[2024-12-07 06:52] LABS: PLATELET COUNT (AUTO) 197 K/uL (150-450); RED BLOOD CELL COUNT(AUTO) 2.87 MIL/uL (4.0-5.2); RED CELL DISTRIBUTION WIDTH 17.6 % (11.5-15.0); WHITE BLOOD COUNT (AUTO) 6.2 K/uL (4.3-11.0)
[2024-12-07 07:11] LABS: CALCIUM, SERUM 10.3 mg/dL (8.5-10.1); CREATININE 5.2 mg/dL (0.6-1.3); PHOSPHORUS 2.4 mg/dL (2.5-4.9); SODIUM SERUM 138.0 mmol/L (136-145); UREA NITROGEN, BLOOD 63.0 mg/dL (7-18)
[2024-12-07] MEDS ORDERED: GENT70PI2 IV (11:52)
[2024-12-07] MEDS: GENTAMICIN 80 MG in IV D5W 50 ML IV PRN (17:23)
[2024-12-08] VITALS (8 sets, daily range): BP systolic 136; BP diastolic 67; TEMP 99.3; O2SAT 97–100
[2024-12-08 06:30] LABS: CALCIUM, SERUM 10.7 mg/dL (8.5-10.1); CREATININE 4.3 mg/dL (0.6-1.3); SODIUM SERUM 143.0 mmol/L (136-145); UREA NITROGEN, BLOOD 52.0 mg/dL (7-18)
== END 2024-12-08 13:47 | DRG 871 ==
LOC: ER 05:03 → TELE 08:21 → MED 12-03 15:29
PROVIDERS: ADMIT Student in an Organized Health Care Education/Training Program; ATTEND Student in an Organized Health Care Education/Training Program
PROC: 5A1D70Z Performance of Urinary Filtration, Intermittent, Less than 6 Hours Per Day (ICD-10-PCS; principal; 2024-12-03)
DX: A41.50 Gram-negative sepsis, unspecified (principal); J15.69 Pneumonia due to other Gram-negative bacteria; N18.6 End stage renal disease; G93.40 Encephalopathy, unspecified; I12.0 Hypertensive chronic kidney disease with stage 5 chronic kidney disease or end stage renal disease; E44.0 Moderate protein-calorie malnutrition; E87.1 Hypo-osmolality and hyponatremia; J90 Pleural effusion, not elsewhere classified; F03.90 Unspecified dementia, unspecified severity, without behavioral disturbance, psychotic disturbance, mood disturbance, and anxiety; G40.909 Epilepsy, unspecified, not intractable, without status epilepticus; Z20.822 Contact with and (suspected) exposure to COVID-19; Z86.73 Personal history of transient ischemic attack (TIA), and cerebral infarction without residual deficits; I27.20 Pulmonary hypertension, unspecified; K21.9 Gastro-esophageal reflux disease without esophagitis; R13.10 Dysphagia, unspecified; G62.9 Polyneuropathy, unspecified; D63.8 Anemia in other chronic diseases classified elsewhere; E03.9 Hypothyroidism, unspecified; D69.6 Thrombocytopenia, unspecified; E78.5 Hyperlipidemia, unspecified; E88.09 Other disorders of plasma-protein metabolism, not elsewhere classified; F20.9 Schizophrenia, unspecified; M89.8X9 Other specified disorders of bone, unspecified site; Z99.2 Dependence on renal dialysis; Z93.1 Gastrostomy status; Z79.899 Other long term (current) drug therapy; Z79.01 Long term (current) use of anticoagulants; B96.89 Other specified bacterial agents as the cause of diseases classified elsewhere; Z79.51 Long term (current) use of inhaled steroids
CPT/HCPCS: 36415; 71045-TC; 80048-TC; 80053-TC; 80076-TC; 80170-TC; 80202-TC; 82962-TC; 83605-TC; 83735-TC; 84100-TC; 84443-TC; 84484-TC; 85025-TC; 85730-TC; 87040-TC; 87081-TC; 87186-TC; 90935-TC; 93307-TC; 94760-TC; 94762-TC; 94799-TC; A4223; A4623; G0378; J0692; J0885; J1580; J3373; J7030; J7050; J7060